=== PATIENT | female | born 1945 | race Caucasian/White ===

== ENCOUNTER → 2016-12-04 | Outpatient (CLI) | payer MEDICARE, OTHER ==
--- NOTE | 2016-12-04 14:46 | USB ---
Reason for exam: follow-up at short interval from prior study. History: Patient is postmenopausal. Benign US biopsy breast VAD RT of the right breast, May 30, 2016. Benign US biopsy breast add'l VAD RT of the right breast, May 30, 2016. Benign US biopsy breast add'l VAD RT of the right breast, May 30, 2016. Benign US right guided VAD of the right breast, August 12, 2009. Took hormonal contraceptives for 1 year 6 months beginning at age 23. Physical Findings: Nurse did not find any significant physical abnormalities on exam. US Breast RT Right breast ultrasound including all four quadrants, the retroareolar region and axilla demonstrates no cystic or solid lesion seen. These results were verbally communicated with the patient and result sheet given to the patient on 12/04/16. ASSESSMENT: Negative, BI-RAD 1 RECOMMENDATION: Routine screening mammogram of both breasts in 6 months. Back on schedule.
== END | disposition home or self-care (01) ==
LOC: RADUSWWP 14:05
PROVIDERS: ATTEND Surgery
DX: R92.8 Other abnormal and inconclusive findings on diagnostic imaging of breast (principal)

== ENCOUNTER → 2017-05-07 | Outpatient (CLI) | payer MEDICARE, OTHER ==
--- NOTE | 2017-05-07 10:09 | MM ---
Reason for exam: additional evaluation requested from prior study. Last mammogram was performed 11 months ago. History: Patient is postmenopausal. Benign US biopsy breast VAD RT of the right breast, May 30, 2016. Benign US biopsy breast add'l VAD RT of the right breast, May 30, 2016. Benign US biopsy breast add'l VAD RT of the right breast, May 30, 2016. Benign US right guided VAD of the right breast, August 12, 2009. Took hormonal contraceptives for 1 year 6 months beginning at age 23. Physical Findings: Nurse did not find any significant physical abnormalities on exam. MG 3D Diag Mammo W/Cad KAYLIN Bilateral CC and MLO view(s) were taken. Prior study comparison: December 04, 2016, right breast US breast RT. May 30, 2016, right breast MG diagnostic mammo RT wo CAD. May 23, 2016, bilateral MG 3d diag mammo w/cad KAYLIN. The breast tissue is heterogeneously dense. This may lower the sensitivity of mammography. Finding #1: Architectural distortion in the outer quadrant of the right breast. Finding #2: There are few typically benign round calcifications in both breasts. Previous mammotome biopsy in the right breast x 2. There is a chronic nodularity in the right breast. There is no discrete abnormality. These results were verbally communicated with the patient and result sheet given to the patient on 05/07/17. ASSESSMENT: Benign, BI-RAD 2 RECOMMENDATION: Routine screening mammogram of both breasts in 1 year.
== END | disposition home or self-care (01) ==
LOC: RADMAMWWP 08:55
PROVIDERS: ATTEND Surgery
DX: R92.8 Other abnormal and inconclusive findings on diagnostic imaging of breast (principal)
CPT/HCPCS: G0204; G0279

== ENCOUNTER → 2018-08-04 | Outpatient (CLI) | payer MEDICARE, OTHER ==
--- NOTE | 2018-08-04 09:55 | XR ---
EXAMINATION TYPE: XR chest 2V DATE OF EXAM: 08/04/2018 COMPARISON: NONE HISTORY: Preoperative evaluation. TECHNIQUE: Frontal and lateral views of the chest are obtained. FINDINGS: There is no focal air space opacity, pleural effusion, or pneumothorax seen. The cardiac silhouette size is within normal limits. The osseous structures are intact. Minimal multilevel dege nerative changes of the thoracic spine are seen. Postsurgical changes of the lumbar spine are partial ly visualized. IMPRESSION: No acute cardiopulmonary process.
[2018-08-04 10:03] LABS: INR 1.1 (<1.2); Prothrombin Time 10.5 sec (9.0-12.0)
[2018-08-04 10:17] LABS: Basophils % (A) 0 %; Eosinophils # (A) 0.1 k/uL (0-0.7); Eosinophils % (A) 1 %; HGB 12.8 gm/dL (11.4-16.0); Lymphocytes # (A) 2.5 k/uL (1.0-4.8); Lymphocytes % (A) 26 %; MCH 30.6 pg (25.0-35.0); MCHC 33.6 g/dL (31.0-37.0); MCV 91.2 fL (80.0-100.0); Mean Platelet Volume 6.7; Monocytes # (A) 0.5 k/uL (0-1.0); Monocytes % (A) 5 %; Neutrophils # (A) 6.4 k/uL (1.3-7.7); Neutrophils % (A) 66 %; Platelet Count 322 k/uL (150-450); RBC 4.17 m/uL (3.80-5.40); RDW 12.9 % (11.5-15.5); WBC 9.8 k/uL (3.8-10.6)
[2018-08-04 10:34] LABS: Potassium 4.4 mmol/L (3.5-5.1)
== END | disposition home or self-care (01) ==
LOC: LABPAT 08:50
PROVIDERS: ATTEND Orthopaedic Surgery
DX: Z01.818 Encounter for other preprocedural examination (principal); Z01.812 Encounter for preprocedural laboratory examination; M17.12 Unilateral primary osteoarthritis, left knee; Z79.01 Long term (current) use of anticoagulants
CPT/HCPCS: 71046; 80051; 85025; 85610; 87070; 93005

== ENCOUNTER → 2018-08-04 | Outpatient (CLI) | payer MEDICARE, OTHER ==
[2018-08-04 10:42] LABS: Cholesterol 164 mg/dL (<200); HDL Cholesterol 63 mg/dL (40-60); LDL Cholesterol,Calculated 51 mg/dL (0-99); Triglycerides 251 mg/dL (<150)
[2018-08-05 09:15] LABS: Lyme IgG/IgM 0.1 Index
== END ==
LOC: LABWHC1 08:38
PROVIDERS: ATTEND Otolaryngology
DX: H91.90 Unspecified hearing loss, unspecified ear (principal)
CPT/HCPCS: 36415; 80061; 86618

== ENCOUNTER → 2018-08-05 | Outpatient (CLI) | payer MEDICARE, OTHER ==
--- NOTE | 2018-08-05 11:25 | MR ---
EXAMINATION TYPE: MR brain and iac wo/w con DATE OF EXAM: 08/05/2018 COMPARISON: Prior internal auditory canal MRI 10/16/2015 HISTORY: Acoustic disorder TECHNIQUE: Multiplanar, multisequence images of the brain and brainstem is performed without and with IV contras t, utilizing 10 mL intravenous Gadavist . Small [id number] high-resolution images obtained through the internal auditory canals. FINDINGS: Diffusion weighted images demonstrate no evidence of a recent infarct or other diffusion ab normality. There is no extra-axial fluid collection or significant interval change in white matter s ignal abnormality. Scattered periventricular, subcortical, deep white matter hyperintensities are pre sent on inversion recovery T2-weighted sequences as on prior exam. The ventricular system and cistern al spaces are normal in size and appearance. The brain volume is age appropriate. There is no cerebellopontine angle mass. No abnormal enhancement along the internal auditory canals. Midline structures demonstrate normal morphology, partially empty sella again noted. The craniocervi thomas junction appears within normal limits. Post contrast images demonstrate no abnormal enhancement. The dural venous sinuses appear patent. The visualized sinuses are clear and the globes are intact. Minimal inflammatory change present within the mastoid air cells on the right. IMPRESSION: No evident cerebellopontine angle mass. Internal auditory canals show a normal appearance . Mild inflammatory change present mastoid air cells. Nonspecific white matter demyelination is stabl e.
== END | disposition home or self-care (01) ==
LOC: RADMRIMAIN 09:32
PROVIDERS: ATTEND Otolaryngology
DX: G37.9 Demyelinating disease of central nervous system, unspecified (principal); H91.92 Unspecified hearing loss, left ear
CPT/HCPCS: 82565; 70553; A9581

== ENCOUNTER 2018-08-22 16:46 | Emergency (ER) | payer MEDICARE, OTHER ==
[2018-08-22 16:54] VITALS: RESP 18
[2018-08-22] MEDS ORDERED: MAG HYDROX/AL HYDROX/SIMETH 30 ML CUP PO PRN (18:26)
[2018-08-22] MEDS ORDERED: FAMOTIDINE 20 MG/2 ML VIAL IV STA (18:26)
[2018-08-22] MEDS ORDERED: LIDOCAINE VISCOUS 2% 15 ML CUP MUCOUS MEM ONE (18:26)
[2018-08-22] MEDS ORDERED: ONDANSETRON 4 MG/2 ML VIAL IVP STA (18:26)
--- NOTE | 2018-08-22 18:45 | ED ---
General Adult HPI - General Chief complaint: Nausea/Vomiting/Diarrhea Stated complaint: gallbladder pain Time Seen by Provider: 08/22/18 17:56 Source: patient Mode of arrival: ambulatory Limitations: no limitations - History of Present Illness Initial comments: patient is a 73 year old female with a history of DM and hiatal hernia who presents with a CC of epigastric abdominal pain x 5 weeks. the patient has been seen by her primary care doctor for this and trialled numerous medications without relief. she states the pain is a pressure sensation, worse with eating. no other aggravating or alleviating factors. timing is relatively constant. she has a PSH of back surgery and hysterectomy. patient denies fever , chills, dysuria. she admits to nausea, though she has not vomited. she states today she felt like she would feel better if she could vomit. - Related Data Home Medications Medication Instructions Recorded Confirmed ALPRAZolam [Xanax] 0.25 mg PO BID 03/07/16 08/22/18 Aspirin 81 mg PO DAILY 03/07/16 08/22/18 Glimepiride [Amaryl] 4 mg PO BID 03/07/16 08/22/18 Losartan/Hydrochlorothiazide 0.5 tab PO BID 03/07/16 08/22/18 [Losartan-Hctz 100-25 mg Tab] Omeprazole [PriLOSEC] 20 mg PO AC-BID 03/07/16 08/22/18 Simvastatin [Zocor] 40 mg PO HS 03/07/16 08/22/18 metFORMIN HCL [Glucophage] 500 mg PO BID 03/07/16 08/22/18 sitaGLIPtin [Januvia] 100 mg PO DAILY 03/07/16 08/22/18 Cholecalciferol [Vitamin D3] 1,000 unit PO DAILY 03/09/16 08/22/18 Acetaminophen/Diphenhydramine 1 tab PO HS 08/22/18 08/22/18 [Tylenol PM 500-25mg] Atenolol 25 mg PO BID 08/22/18 08/22/18 Cyanocobalamin (Vitamin B-12) 1,000 mcg PO DAILY 08/22/18 08/22/18 [Vitamin B-12] Dicyclomine [Bentyl] 20 mg PO QID 08/22/18 08/22/18 Escitalopram [Lexapro] 10 mg PO DAILY 08/22/18 08/22/18 Levothyroxine Sodium [Synthroid] 150 mcg PO DAILY 08/22/18 08/22/18 Naproxen Sodium [Aleve] 220 mg PO Q12H PRN 08/22/18 08/22/18 Previous Rx's Medication Instructions Recorded Sucralfate [Carafate] 1 gm PO ACHS #20 tablet 08/22/18 Allergies Allergy/AdvReac Type Severity Reaction Status Date / Time niacin Allergy Rash/Hives Verified 08/22/18 19:05 adhesive tape AdvReac VERY RED Verified 08/22/18 19:05 SKIN Review of Systems ROS Statement: Those systems with pertinent positive or pertinent negative responses have been documented in the HPI. ROS Other: All systems not noted in ROS Statement are negative. Gastrointestinal: Reports: abdominal pain, nausea Past Medical History Past Medical History: Diabetes Mellitus, GERD/Reflux, Hyperlipidemia, Hypertension History of Any Multi-Drug Resistant Organisms: None Reported Past Surgical History: Back Surgery, Breast Surgery, Hysterectomy Additional Past Surgical History / Comment(s): BACK SURGERY X3 Past Anesthesia/Blood Transfusion Reactions: No Reported Reaction Past Psychological History: No Psychological Hx Reported Smoking Status: Never smoker Past Alcohol Use History: None Reported Past Drug Use History: None Reported - Past Family History Sister(s) Family Medical History: Cancer Additional Family Medical History / Comment(s): LIVER CANCER General Exam Limitations: no limitations General appearance: alert, in no apparent distress Head exam: Present: atraumatic, normocephalic Eye exam: Present: normal appearance ENT exam: Present: normal exam Neck exam: Present: normal inspection Respiratory exam: Present: normal lung sounds bilaterally. Absent: respiratory distress Cardiovascular Exam: Present: regular rate, normal rhythm GI/Abdominal exam: Present: soft. Absent: distended, tenderness Rectal exam: Present: deferred Extremities exam: Present: normal inspection Back exam: Present: normal inspection Neurological exam: Present: alert, oriented X3, CN II-XII intact, normal gait Psychiatric exam: Present: normal affect, normal mood Skin exam: Present: warm, dry, intact Course Vital Signs 08/22/18 16:52 Temperature 97.7 F Pulse Rate 78 Respiratory 18 Rate Blood Pressure 124/82 O2 Sat by Pulse 98 Oximetry Medical Decision Making - Medical Decision Making Patient presents with a CC of abdominal pain x 5 weeks. on initial evaluation, VS stable, patient in no acute distress. patient to be evaluated with basic labs including liver profile and lipase, EKG, and cardiac enzymes. she will be sent for a CT scan of the abdomen and pelvis. she was given a GI cocktail for symptomatic relief. EKG performed at 1917 shows NSR with a rate of 62 bpm. EKG otherwise unremarkable. 9:10 PM Lab evaluation of this patient is unremarkable. Urinalysis show any evidence of infection. Computed tomography scan of the abdomen and pelvis shows no acute process though there is redemonstration of hiatal hernia, and previously known lumbar sponlylysis. at the patients request, the case was discussed with Dr. Apodaca who states she is appropriate for OP follow up on saturday. patient instructed to call the office on saturday to confirm appointment. patient and family agreeable with this care plan. - Lab Data Result diagrams: 08/22/18 18:40 08/22/18 18:40 Lab Results 08/22/18 08/22/18 08/22/18 Range/Units 18:40 18:40 18:40 WBC 10.1 (3.8-10.6) k/uL RBC 4.28 (3.80-5.40) m/uL Hgb 12.9 (11.4-16.0) gm/dL Hct 39.9 (34.0-46.0) % MCV 93.3 (80.0-100.0) fL MCH 30.1 (25.0-35.0) pg MCHC 32.3 (31.0-37.0) g/dL RDW 13.0 (11.5-15.5) % Plt Count 389 (150-450) k/uL Neutrophils % 58 % Lymphocytes % 32 % Monocytes % 6 % Eosinophils % 1 % Basophils % 0 % Neutrophils # 5.9 (1.3-7.7) k/uL Lymphocytes # 3.2 (1.0-4.8) k/uL Monocytes # 0.6 (0-1.0) k/uL Eosinophils # 0.1 (0-0.7) k/uL Basophils # 0.0 (0-0.2) k/uL Sodium 140 (137-145) mmol/L Potassium 4.2 (3.5-5.1) mmol/L Chloride 101 (98-107) mmol/L Carbon Dioxide 28 (22-30) mmol/L Anion Gap 11 mmol/L BUN 24 H (7-17) mg/dL Creatinine 0.93 (0.52-1.04) mg/dL Est GFR (CKD-EPI)AfAm 71 (>60 ml/min/1.73 sqM) Est GFR (CKD-EPI)NonAf 62 (>60 ml/min/1.73 sqM) Glucose 120 H (74-99) mg/dL POC Glucose (mg/dL) (75-99) mg/dL POC Glu [employer]ice ID Calcium 9.5 (8.4-10.2) mg/dL Magnesium 1.1 L (1.6-2.3) mg/dL Total Bilirubin 0.5 (0.2-1.3) mg/dL AST 18 (14-36) U/L ALT 21 (9-52) U/L Alkaline Phosphatase 75 (38-126) U/L Troponin I (0.000-0.034) ng/mL NT-Pro-B Natriuret Pep pg/mL Total Protein 7.8 (6.3-8.2) g/dL Albumin 4.6 (3.5-5.0) g/dL Lipase 130 (23-300) U/L Urine Color Light Yellow Urine Appearance Clear (Clear) Urine pH 5.5 (5.0-8.0) Ur Specific [place] 1.011 (1.001-1.035) Urine Protein Negative (Negative) Urine Glucose (UA) Negative (Negative) Urine Ketones Negative (Negative) Urine Blood Negative (Negative) Urine Nitrite Positive H (Negative) Urine Bilirubin Negative (Negative) Urine Urobilinogen <2.0 (<2.0) mg/dL Ur Leukocyte Esterase Small H (Negative) Urine WBC 3 (0-5) /hpf Ur Squamous Epith Cells 1 (0-4) /hpf Urine Bacteria Rare H (None) /hpf 08/22/18 08/22/18 08/22/18 Range/Units 18:40 18:40 20:17 WBC (3.8-10.6) k/uL RBC (3.80-5.40) m/uL Hgb (11.4-16.0) gm/dL Hct (34.0-46.0) % MCV (80.0-100.0) fL MCH (25.0-35.0) pg MCHC (31.0-37.0) g/dL RDW (11.5-15.5) % Plt Count (150-450) k/uL Neutrophils % % Lymphocytes % % Monocytes % % Eosinophils % % Basophils % % Neutrophils # (1.3-7.7) k/uL Lymphocytes # (1.0-4.8) k/uL Monocytes # (0-1.0) k/uL Eosinophils # (0-0.7) k/uL Basophils # (0-0.2) k/uL Sodium (137-145) mmol/L Potassium (3.5-5.1) mmol/L Chloride (98-107) mmol/L Carbon Dioxide (22-30) mmol/L Anion Gap mmol/L BUN (7-17) mg/dL Creatinine (0.52-1.04) mg/dL Est GFR (CKD-EPI)AfAm (>60 ml/min/1.73 sqM) Est GFR (CKD-EPI)NonAf (>60 ml/min/1.73 sqM) Glucose (74-99) mg/dL POC Glucose (mg/dL) 107 H (75-99) mg/dL POC Glu [employer]ice ID Jasiel Xie Calcium (8.4-10.2) mg/dL Magnesium (1.6-2.3) mg/dL Total Bilirubin (0.2-1.3) mg/dL AST (14-36) U/L ALT (9-52) U/L Alkaline Phosphatase (38-126) U/L Troponin I <0.012 (0.000-0.034) ng/mL NT-Pro-B Natriuret Pep 144 pg/mL Total Protein (6.3-8.2) g/dL Albumin (3.5-5.0) g/dL Lipase (23-300) U/L Urine Color Urine Appearance (Clear) Urine pH (5.0-8.0) Ur Specific [place] (1.001-1.035) Urine Protein (Negative) Urine Glucose (UA) (Negative) Urine Ketones (Negative) Urine Blood (Negative) Urine Nitrite (Negative) Urine Bilirubin (Negative) Urine Urobilinogen (<2.0) mg/dL Ur Leukocyte Esterase (Negative) Urine WBC (0-5) /hpf Ur Squamous Epith Cells (0-4) /hpf Urine Bacteria (None) /hpf Disposition Clinical Impression: Hiatal hernia Disposition: HOME SELF-CARE Condition: Good Instructions: Hiatal Hernia (DC) Is patient prescribed a controlled substance at d/c from ED?: No Referrals: Evaristo Guillory DO [Primary Care Provider] - 1-2 days
[2018-08-22 19:00] LABS: Basophils % (A) 0 %; Eosinophils # (A) 0.1 k/uL (0-0.7); Eosinophils % (A) 1 %; HCT 39.9 % (34.0-46.0); HGB 12.9 gm/dL (11.4-16.0); Lymphocytes # (A) 3.2 k/uL (1.0-4.8); Lymphocytes % (A) 32 %; MCH 30.1 pg (25.0-35.0); MCHC 32.3 g/dL (31.0-37.0); MCV 93.3 fL (80.0-100.0); Mean Platelet Volume 6.6; Monocytes # (A) 0.6 k/uL (0-1.0); Monocytes % (A) 6 %; Neutrophils # (A) 5.9 k/uL (1.3-7.7); Neutrophils % (A) 58 %; Platelet Count 389 k/uL (150-450); RBC 4.28 m/uL (3.80-5.40); WBC 10.1 k/uL (3.8-10.6)
[2018-08-22 19:03] LABS: Appearance,Urine Clear (Clear); Bacteria,Urine Rare /hpf; Bilirubin,Urine Negative (Negative); Blood,Urine Negative (Negative); Color,Urine Light Yellow; Glucose,Urine (UA) Negative (Negative); Ketones,Urine Negative (Negative); Leukocyte Esterase,Urine Small (Negative); Nitrite,Urine Positive (Negative); PH, Urine 5.5 (5.0-8.0); Protein,Urine Negative (Negative); Specific Gravity,Urine 1.011 (1.001-1.035); Squamous Epithelial Cell,Urine 1 /hpf (0-4); Urobilinogen,Urine <2.0 mg/dL (<2.0); WBC,Urine 3 /hpf (0-5)
[2018-08-22 19:07] LABS: Albumin 4.6 g/dL (3.5-5.0); Calcium 9.5 mg/dL (8.4-10.2); Magnesium 1.1 mg/dL (1.6-2.3); Potassium 4.2 mmol/L (3.5-5.1); Total Bilirubin 0.5 mg/dL (0.2-1.3); Total Protein 7.8 g/dL (6.3-8.2)
--- NOTE | 2018-08-22 19:13 | XR ---
EXAMINATION TYPE: XR chest 2V DATE OF EXAM: 08/22/2018 COMPARISON: 08/04/2018 HISTORY: Epigastric pain TECHNIQUE: Frontal and lateral views of the chest are obtained. FINDINGS: Heart and mediastinum are normal. Lungs are clear. Diaphragm is normal. Bony thorax is int act. IMPRESSION: No active cardiopulmonary disease. Normal heart. No change.
[2018-08-22 20:38] LABS: Glucose,Whole Blood 107 mg/dL (75-99)
--- NOTE | 2018-08-22 20:49 | CT ---
EXAMINATION TYPE: CT abdomen pelvis w con DATE OF EXAM: 08/22/2018 COMPARISON: None HISTORY: Epigastric pain with reflux CT DLP: 1059 mGycm Automated exposure control for dose reduction was used. TECHNIQUE: Helical acquisition of images was performed from the lung bases through the pelvis. CONTRAST: Performed without Oral Contrast and with IV Contrast, patient injected with 100 mL of Isovue 300. FINDINGS: Lung bases are clear of infiltrate. There is no pleural effusion. There are small hiatal hernia. The remainder of the stomach appears normal. spleen pancreas gallbladder appear normal. Bile ducts are no t dilated. The heart is enlarged. There is no adrenal mass. There is 1 cm cyst posterior right lobe of the liver. Kidneys show satisfac tory contrast opacification. There is no hydronephrosis. There is no retroperitoneal adenopathy. Ther e is no evidence of aortic aneurysm. Bladder distends smoothly. There is no inguinal hernia. There are numerous diverticula in the sigmoid colon and descending colon. There is no sign of diverti culitis. The appendix is partly seen and appears normal. There is no mesenteric edema or adenopathy. There is posterior fusion surgery in the lumbar spine at L2-3 and L5-S1. There is a 6 mm subluxation at L3-4. There is no compression fracture. There is multilevel disc space narrowing. The bony pelvis appears intact. There is no sign of free air. There is no ascites. IMPRESSION: HIATAL HERNIA. CARDIOMEGALY. 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 NO ACUTE BONY ABNORMALITY. MODERATE DIVERTICULOSIS.
[2018-08-22 21:33] VITALS: BP 143/73; PULSE 77; TEMP 98
== END 2018-08-22 21:33 | disposition home or self-care (01) ==
LOC: EC 16:46
DX: K44.9 Diaphragmatic hernia without obstruction or gangrene (principal); M43.16 Spondylolisthesis, lumbar region; K21.9 Gastro-esophageal reflux disease without esophagitis; E11.9 Type 2 diabetes mellitus without complications; E78.5 Hyperlipidemia, unspecified; I10 Essential (primary) hypertension; Z98.890 Other specified postprocedural states; Z90.710 Acquired absence of both cervix and uterus; Z79.82 Long term (current) use of aspirin; Z79.84 Long term (current) use of oral hypoglycemic drugs; Z79.899 Other long term (current) drug therapy; Z88.8 Allergy status to other drugs, medicaments and biological substances; Z91.048 Other nonmedicinal substance allergy status
CPT/HCPCS: 36415; 93005; 83880; 80053; 83690; 83735; 84484; 85025; 81001; 71046; 74177; 99284; 96374; 96375; J2405; Q9967

== ENCOUNTER → 2018-09-01 | Outpatient (CLI) | payer MEDICARE, OTHER ==
--- NOTE | 2018-09-01 15:36 | NM ---
EXAMINATION TYPE: NM hepatobiliary w CCK DATE OF EXAM: 09/01/2018 COMPARISON: NONE HISTORY: R10.84 ABD Pain, K21.9 Gerd TECHNIQUE: After the intravenous administration of 5.16 mCi Tc 99m Mebrofenin hepatobiliary scintigra phy is performed. Immediate images post injection. FINDINGS: There is satisfactory initial accumulation of tracer by the liver. The gallbladder is visualized wit hin 20 minutes. The small bowel activity is noted within 10-15 minutes. At one hour CCK was adminis tered, patient was injected with 1.9 mcg of Kinevac, and gallbladder ejection fraction is calculated at 22%. IMPRESSION: Diminished gallbladder ejection fraction which may reflect chronic cholecystitis and/or b iliary dyskinesia.
== END | disposition home or self-care (01) ==
LOC: RADNMMAIN 12:52
PROVIDERS: ATTEND Surgery
DX: R10.84 Generalized abdominal pain (principal); K21.9 Gastro-esophageal reflux disease without esophagitis
CPT/HCPCS: 78227; A9537; J2805

== ENCOUNTER → 2018-09-10 | Outpatient (CLI) | payer MEDICARE, OTHER | LOC: LABPAT 08:43 | PROVIDERS: ATTEND Surgery | DX: Z01.812 Encounter for preprocedural laboratory examination (principal); K21.9 Gastro-esophageal reflux disease without esophagitis | CPT/HCPCS: 36415; 86850; 86870; 86880; 86900; 86901 ==

== ENCOUNTER 2018-09-15 13:15 | Day surgery (SDC) | payer MEDICARE, OTHER ==
[2018-09-10 15:18] VITALS: BMI 33.9
--- NOTE | 2018-09-15 10:04 | P.GSHP ---
History of Present Illness H&P Date: 09/15/18 Chief Complaint: Hiatal hernia, dysphagia Is a 73-year-old female who's had chronic issues of epigastric pain and dysphagia. Patient underwent recent EGD is found have a large hiatal hernia. Patient presents today for laparoscopic repair of hiatal hernia. Past Medical History Past Medical History: Diabetes Mellitus, GERD/Reflux, Hyperlipidemia, Hypertension, Pneumonia, Thyroid Disorder Additional Past Medical History / Comment(s): HIATAL HERNIA, recent stomach infection, diarrhea, gallbladder issues and thyroid problems. History of Any Multi-Drug Resistant Organisms: None Reported Past Surgical History: Back Surgery, Breast Surgery, Heart Catheterization, Hysterectomy Additional Past Surgical History / Comment(s): BACK SURGERY X3, CATARACT WITH IMPLANTS-BILATERAL, EGD. Past Anesthesia/Blood Transfusion Reactions: No Reported Reaction Past Psychological History: Anxiety Smoking Status: Never smoker Past Alcohol Use History: None Reported Past Drug Use History: None Reported - Past Family History Sister(s) Family Medical History: Cancer Additional Family Medical History / Comment(s): LIVER CANCER Brother(s) Family Medical History: Cancer Medications and Allergies Home Medications Medication Instructions Recorded Confirmed Type ALPRAZolam [Xanax] 0.25 mg PO BID PRN 03/07/16 09/10/18 History Aspirin 81 mg PO DAILY 03/07/16 09/10/18 History Glimepiride [Amaryl] 4 mg PO BID 03/07/16 09/10/18 History Losartan/Hydrochlorothiazide 0.5 tab PO BID 03/07/16 09/10/18 History [Losartan-Hctz 100-25 mg Tab] Omeprazole [PriLOSEC] 20 mg PO AC-BID 03/07/16 09/10/18 History Simvastatin [Zocor] 40 mg PO HS 03/07/16 09/15/18 History metFORMIN HCL [Glucophage] 500 mg PO BID 03/07/16 09/10/18 History sitaGLIPtin [Januvia] 100 mg PO DAILY 03/07/16 09/10/18 History Cholecalciferol [Vitamin D3] 1,000 unit PO DAILY 03/09/16 09/10/18 History Acetaminophen/Diphenhydramine 1 tab PO HS 08/22/18 09/10/18 History [Tylenol PM 500-25mg] Atenolol 25 mg PO BID 08/22/18 09/15/18 History Cyanocobalamin (Vitamin B-12) 1,000 mcg PO DAILY 08/22/18 09/10/18 History [Vitamin B-12] Levothyroxine Sodium [Synthroid] 150 mcg PO QAM 08/22/18 09/10/18 History Naproxen Sodium [Aleve] 220 mg PO Q12H PRN 08/22/18 09/10/18 History Allergies Allergy/AdvReac Type Severity Reaction Status Date / Time niacin Allergy Rash/Hives Verified 09/15/18 08:51 adhesive tape AdvReac VERY RED Verified 09/15/18 08:51 SKIN Surgical - Exam Vital Signs Temp Pulse Resp BP Pulse Ox 97.7 F 79 16 130/68 96 09/15/18 09:06 09/15/18 09:06 09/15/18 09:06 09/15/18 09:06 09/15/18 09:06 - General well developed, no distress - Eyes PERRL - ENT normal pinna - Neck no masses - Respiratory normal expansion - Cardiovascular Rhythm: regular - Abdomen Abdomen: soft, non tender Assessment and Plan Assessment: Large hiatal hernia. We'll perform laparoscopic repair.
[2018-09-15 10:07] LABS: Glucose,Whole Blood 165 mg/dL (75-99)
[2018-09-15] MEDS: HYDROmorphone 1 MG/ML 1 ML SYRINGE IVP PRN ×4 (12:15→16:05)
[2018-09-15 12:33] LABS: Glucose,Whole Blood 255 mg/dL (75-99)
--- NOTE | 2018-09-15 12:43 | P.OP ---
Date of Procedure: 09/15/18 Preoperative Diagnosis: GERD Right upper quadrant pain Postoperative Diagnosis: GERD Cholecystitis Procedure(s) Performed: Laparoscopic Kaci fundoplication with mesh repair of hiatal hernia Laparoscopic cholecystectomy Anesthesia: SEYMOUR Surgeon: Uziel Dominique Estimated Blood Loss (ml): 5 Pathology: other (Gallbladder) Condition: stable Disposition: PACU Description of Procedure: The patient was placed on the operating table in the supine position. She received general anesthesia. She was then placed in dorsal lithotomy position. Her abdomen was prepped and draped in the usual sterile fashion. The skin incision sites were anesthetized with 1% local Xylocaine. The skin was incised in the left periumbilical area with an 11 scalpel. Using a 5 mm blade was trocar under direct visitation the peritoneal cavity was entered. And then insufflated. After adequate insufflation the laparoscope was placed back into the peritoneal cavity. Next a 5 mm trocar was placed in the right epigastric and then the right lateral position. Another 5 mm trochars placed in the left lateral position. Another 5 mm trocar placed in the left epigastric position. And the original left periumbilical trocar was exchanged for a 10 mm trocar. The left lateral lobe liver was retracted. The patient had a large hiatal hernia. Using the Harmonic scissors the crural defect was dissected in the Harmonic scissors were used to dissect the hiatal hernia sac. The fundus of the stomach was completely mobilized by using the Harmonic scissors to divide short gastric vessels. The stomach was reduced into the peritoneal cavity. The crura was dissected with the Harmonic scissors. And then the crural repair was performed using 2-0 Ethibond suture. The [place] bio A mesh was then placed over top of the repair and secured with 2-0 Ethibond suture. Next a 58-Algerian bougie dilator was placed the patient's oral pharynx and into the esophagus into the stomach by the MARKET RESEARCH INTERN. The fundoplication was then performed using 2-0 Ethibond suture. A 180 fundoplication was performed. At this point the dilator was withdrawn. The stomach and esophagus were inspected there is known to any injury to the stomach or esophagus. The abdomen was irrigated there is no bleeding seen. Next, the 10 mm trocar was placed in the epigastric position. Following this the laparoscope was placed in the peritoneal cavity. The patient was placed in the head-up, right side up position and then a 5 mm trocar was placed in the right lateral and right subcostal position under direct visualization. A 8 mm trocar was placed in the Judi. The gallbladder was grasped in the fundus and infundibulum. Traction on the gallbladder was placed in the lateral and the cephalad positions. The triangle of Calot was visualized.. The cystic duct was bluntly dissected until the union of the cystic duct and common bile duct was seen. The cystic duct was then divided and sealed with the Harmonic scissors. A PDS Endoloop was then placed throughout the cystic duct stump. The cystic artery divided and sealed with the Harmonic scissors. The gallbladder was then removed from the liver bed using Harmonic scissors. The gallbladder was then extracted through the epigastric port site. Operative field was checked for any bleeding spots and Harmonic scissors was used to coagulate the liver bed. The abdomen was irrigated. The trocars were removed. The skin was closed using interrupted 3-0 Vicryl suture. Dermabond dressing were applied. The patient tolerated the procedure well.
[~2018-09-15 13:15] MED LIST: BUPIVACAIN-EPI 0.25%-1:200,000 30 ML VIAL SQ ONE; DEXAMETHASONE SOD PHOSPHATE 10 MG/ML 1 ML VIAL IV ONE; GLYCOPYRROLATE 0.2 MG/ML 2 ML VIAL ONE; HEPARIN SODIUM,PORCINE 5,000 UNIT/ML 1 ML VIAL SQ ONE; KETOROLAC 30 MG/ML 1 ML VIAL ONE; LACTATED RINGERS 1,000 ML IV SCH; LIDOCAINE 1% INJ 10MG/ML (20 ML MDV) ONE; MIDAZOLAM 2 MG/2 ML VIAL IV PRN; MIDAZOLAM 2 MG/2 ML VIAL ONE; MORPHINE SULFATE 10 MG/ML SYRINGE ONE; NEOSTIGMINE 1 MG/ML 10 ML VIAL ONE; ONDANSETRON 4 MG/2 ML VIAL IVP ONE; ONDANSETRON 4 MG/2 ML VIAL IVP PRN; PROPOFOL 10 MG/ML 20 ML VIAL IV ONE; ROCURONIUM BROMIDE 10 MG/ML 10 ML VIAL IV ONE; ceFAZolin IN SWFI 2 GM/20 ML SYRINGE IVP ONE; fentaNYL (PF) 50 MCG/ML 2 ML AMP ONE
[2018-09-15] MEDS ORDERED: HYDROmorphone 0.5 MG/0.5 ML SYRINGE IVP ONE (13:20)
[2018-09-15] MEDS ORDERED: INSULIN ASPART 100 UNIT/ML 1 ML 10 ML VIAL SQ ONE (13:35)
[2018-09-15] MEDS ORDERED: ALPRAZolam 0.25 MG TAB PO PRN (14:00)
[2018-09-15] MEDS: D5-0.45% NACL WITH KCL 20MEQ/L 1,000 ML IV SCH (16:09)
[2018-09-15 17:02] LABS: Glucose,Whole Blood 189 mg/dL (75-99)
[2018-09-15] MEDS: metFORMIN 500 MG TAB PO SCH (17:30)
[2018-09-15] MEDS: METOCLOPRAMIDE 5 MG/ML 2 ML VIAL IVP SCH (18:48)
[2018-09-15] MEDS ORDERED: ATORVASTATIN 20 MG TAB PO SCH (21:00)
[2018-09-15] MEDS: LOSARTAN-HCTZ 50-12.5 MG 1 EACH TAB PO SCH (21:43)
[2018-09-15] MEDS: ATENOLOL 25 MG TAB PO SCH ×2 (21:43→21:54)
[2018-09-15] MEDS: GLIMEPIRIDE 4 MG TAB PO SCH (21:43)
[2018-09-15] MEDS: FAMOTIDINE 20 MG/2 ML VIAL IV SCH (21:43)
[2018-09-16] MEDS: HYDROmorphone 1 MG/ML 1 ML SYRINGE IVP PRN ×2 (00:03→07:59)
[2018-09-16] MEDS: METOCLOPRAMIDE 5 MG/ML 2 ML VIAL IVP SCH ×2 (00:03→06:11)
[2018-09-16] MEDS: D5-0.45% NACL WITH KCL 20MEQ/L 1,000 ML IV SCH ×2 (03:22→06:35)
[2018-09-16] MEDS ORDERED: LEVOTHYROXINE 75 MCG TAB PO SCH (06:30)
[2018-09-16 07:31] LABS: Glucose,Whole Blood 184 mg/dL (75-99)
[2018-09-16] MEDS: ATENOLOL 25 MG TAB PO SCH (08:03)
[2018-09-16] MEDS: LOSARTAN-HCTZ 50-12.5 MG 1 EACH TAB PO SCH (08:03)
[2018-09-16] MEDS: FAMOTIDINE 20 MG/2 ML VIAL IV SCH (08:05)
[2018-09-16] MEDS: metFORMIN 500 MG TAB PO SCH (08:08)
[2018-09-16 08:13] VITALS: BP 107/72; PULSE 82; RESP 20; TEMP 97.9
[2018-09-16] MEDS ORDERED: HYDROcodone/APAP 5-325MG 1 EACH TAB PO PRN (08:33)
[2018-09-16] MEDS ORDERED: SODIUM CHLORIDE 0.9% 1,000 ML IV SCH (08:45)
[2018-09-16] MEDS ORDERED: traMADol 50 MG TAB PO PRN (08:53)
[2018-09-16] MEDS ORDERED: LINAGLIPTIN 5 MG TABLET PO SCH (09:00)
[2018-09-16] MEDS ORDERED: ENOXAPARIN 40 MG/0.4 ML SYRINGE SQ SCH (09:00)
--- NOTE | 2018-09-16 09:15 | FL ---
EXAMINATION TYPE: FL esophagus cervic/pharynx DATE OF EXAM: 09/16/2018 LIMITED UGI-ESOPHAGRAM: CLINICAL HISTORY: Epigastric pain and reflux status post Sammy fundoplication surgery one day earli er. TECHNIQUE: Limited esophagram is performed utilizing 20 oz of contrast. A total of 66 seconds of flu oroscopic time was utilized during procedure. 19 spot images are saved. Comparison: CT abdomen and pelvis August 22, 2018 FINDINGS: The patient swallowed contrast without difficulty or delay. Esophageal peristalsis and mo tility are satisfactory. There is mild delay of flow of contrast along the diaphragmatic hiatus at si te of surgery into the stomach, there is no evidence of contrast extravasation to suggest leak. No pe rsistent hiatal hernia is seen after surgery. Patient remains asymptomatic without increased nausea. There is partial visualization of surgical hardware in the lumbar spine during performance of study. IMPRESSION: No evidence of leak or significant obstruction status post Sammy fundoplication surgery earlier today.
[2018-09-16] MEDS: GLIMEPIRIDE 4 MG TAB PO SCH (09:46)
--- NOTE | 2018-09-16 09:59 | P.DS ---
Providers Expected date of discharge: 09/16/18 Attending physician: Uziel Dominique Consults: 09/15/18 12:45 Consult Physician Routine Consulting Provider: Evaristo Guillory Consult Reason/Comments: Medical management Do you want consulting provider notified?: Yes Primary care physician: Evaristo Guillory [place] [facility] Course: 73-year-old female who has had chronic issues of epigastric and dysphagia. Underwent a recent EGD was found to have a large hiatal hernia. Additionally patient had a HIDA scan performed which showed diminished ejection fraction consistent with chronic cholelithiasis. Patient elected to undergo laparoscopic cholecystectomy with a laparoscopic hiatal hernia repair done on the 15 of September. At the time of discharge patient was up ambulatory on the unit surgical dressing sites dry afebrile abdomen soft nontender pain medication effective for pain control patient did report that she had gone to urgent care prior to surgery was treated for a reported UTI. Did develop some redness at the labia patient thought this was contributed to changing detergent and soap at the time of discharge there was a significant improvement in the redness patient stated that the symptoms had resolved Impression discharge diagnoses Chronic issues of epigastric and dysphagia Recent EGD showed evidence of a large hiatal hernia HIDA scan showed diminished ejection fraction consistent with chronic cholecystitis Status post September 16 laparoscopic cholecystectomy with hiatal hernia repair Type 2 diabetes non-insulin hemoglobin A1c 7.3 History of a recent UTI incomplete antibiotics missed 2 doses The above impression and plan of care have been discussed and directed by signing physician. Shaye Reyes nurse practitioner acting as scribe for signing physician. Plan - Discharge Summary New Discharge Prescriptions: New HYDROcodone/APAP 5-325MG [[place] 5-325] 1 each PO Q4HR PRN #12 tab PRN Reason: Moderate Pain Continue Simvastatin [Zocor] 40 mg PO HS Losartan/Hydrochlorothiazide [Losartan-Hctz 100-25 mg Tab] 0.5 tab PO BID Omeprazole [PriLOSEC] 20 mg PO AC-BID Glimepiride [Amaryl] 4 mg PO BID metFORMIN HCL [Glucophage] 500 mg PO BID ALPRAZolam [Xanax] 0.25 mg PO BID PRN PRN Reason: ANXIETY,INSOMNIA Aspirin 81 mg PO DAILY sitaGLIPtin [Januvia] 100 mg PO DAILY Cholecalciferol [Vitamin D3] 1,000 unit PO DAILY Naproxen Sodium [Aleve] 220 mg PO Q12H PRN PRN Reason: Pain Acetaminophen/Diphenhydramine [Tylenol PM 500-25mg] 1 tab PO HS Levothyroxine Sodium [Synthroid] 150 mcg PO QAM Atenolol 25 mg PO BID Cyanocobalamin (Vitamin B-12) [Vitamin B-12] 1,000 mcg PO DAILY Discharge Medication List ALPRAZolam [Xanax] 0.25 mg PO BID PRN 03/07/16 [History] Aspirin 81 mg PO DAILY 03/07/16 [History] Glimepiride [Amaryl] 4 mg PO BID 03/07/16 [History] Losartan/Hydrochlorothiazide [Losartan-Hctz 100-25 mg Tab] 0.5 tab PO BID [History] Omeprazole [PriLOSEC] 20 mg PO AC-BID 03/07/16 [History] Simvastatin [Zocor] 40 mg PO HS 03/07/16 [History] metFORMIN HCL [Glucophage] 500 mg PO BID 03/07/16 [History] sitaGLIPtin [Januvia] 100 mg PO DAILY 03/07/16 [History] Cholecalciferol [Vitamin D3] 1,000 unit PO DAILY 03/09/16 [History] Acetaminophen/Diphenhydramine [Tylenol PM 500-25mg] 1 tab PO HS 08/22/18 [ History] Atenolol 25 mg PO BID 08/22/18 [History] Cyanocobalamin (Vitamin B-12) [Vitamin B-12] 1,000 mcg PO DAILY 08/22/18 [ History] Levothyroxine Sodium [Synthroid] 150 mcg PO QAM 08/22/18 [History] Naproxen Sodium [Aleve] 220 mg PO Q12H PRN 08/22/18 [History] HYDROcodone/APAP 5-325MG [[place] 5-325] 1 each PO Q4HR PRN #12 tab 09/16/18 [Rx] Follow up Appointment(s)/Referral(s): Uziel Dominique MD [STAFF PHYSICIAN] - 2 Weeks Activity/Diet/Wound Care/Special Instructions: No tub bath for six weeks. Shower daily. No lifting over 10 pounds for the next 2 weeks. Do not remove the plastic surgical dressings will be removed in the office or will fall off on their own May use ice packs to surgical site. No driving while taking narcotic for pain. kurt clear liquid diet Discharge Disposition: HOME SELF-CARE
--- NOTE | 2018-09-16 11:07 | P.CONS ---
History of Present Illness - Reason for Consult Consult date: 09/16/18 medical management Requesting physician: Uziel Dominique - Chief Complaint medical management, GERD - History of Present Illness 73-year-old female who underwent elective laparoscopic kurt fundoplication with mesh repair of hiatal hernia and laparoscopic cholecystectomy by Dr. Dominique. Dr. Guillory was consulted for medical management. The patient has a history of diabetes mellitus, GERD, hyperlipidemia , hypertension, and hiatal hernia. She reports she went to [facility] a few weeks ago and was diagnosed with a urinary tract infection. She states she took all but two pills of her antibiotic. She denies dysuria, burning with urination , vaginal itching, increased urgency or frequency. She does report some redness to the labia majora. Patient is tolerating clear liquid diet. She denies chest pain or pressure. Denies shortness of breath. Vital signs are stable. REVIEW OF SYSTEMS: GENERAL: Patient denies fever. Denies chills. EYES: Denies blurred vision. Denies vision changes. Denies eye pain. EARS, NOSE, MOUTH, & THROAT: Denies headache. Denies sore throat. Denies ear pain. RESPIRATORY: Denies cough. Denies shortness of breath. Denies sputum production. Denies hemoptysis. CARDIOVASCULAR: Denies chest pain or pressure. Denies palpitations. Denies arrhythmias. GASTROINTESTINAL: Denies abdominal pain. Denies diarrhea. Denies constipation. Denies nausea. Denies vomiting. Denies blood in the stool. GENITOURINARY: Denies urinary frequency. Denies burning. Denies dysuria. Denies cloudy urine. Denies blood in the urine. MUSCULOSKELETAL: Denies myalgias. Denies joint swelling. Denies decreased range of motion beyond patients baseline. INTEGUMENTARY: Denies pruitis. Denies rash. PSYCHIATRIC: Denies suicidal or homicial ideations. ENDOCRINE: Denies weight change. Denies polydipsia. Denies polyuria. HEMATOLOGIC: Denies bleeding disorders. PHYSICAL EXAM: GENERAL: This is a 73-year-old female in no apparent distress at the time of examination. Pleasant and cooperative. HEENT: Head is atraumatic, normocephalic. Pupils are equal, round, and reactive to light. Sclerae anicteric. Conjunctivae are clear. Mucus membranes of the mouth are moist. Neck is supple. RESPIRATORY: Clear to auscultation. No wheezes, rales, or rhonchi. No use of accessory muscles. Patient maintaining oxygen saturation greater than 92%. No chest wall tenderness is noted on palpation or with deep breathing. CARDIOVASCULAR: Regular rate and rhythm. S1 and S2 noted. No systolic or diastolic murmur auscultated. No JVD noted. No S3 or S4 noted. GASTROINTESTINAL: No distention noted. Abdomen soft and round. Bowel sounds auscultated x 4 quadrants. No pain or tenderness noted upon palpation. Laparoscopic surgical incision sites without signs of infection. No drainage noted. NURSING PROGRAM COORDINATOR: Mild erythema noted to labia majora. No open cuts, rashes, drainage, malodorous smell INTEGUMENTARY: No cyanosis. No jaundice. No rashes noted. No cellulitis noted. EXTREMITIES: 2+ peripheral pulses. No evidence of peripheral edema. No calf tenderness noted. NEUROLOGIC: Cranial nerves II-XII intact. PSYCHIATRIC: Awake, alert, and oriented X 3. Appropriate affect. Intact judgement and insight. ASSESSMENT: Chronic epigastric pain and dysphagia with recent HIDA scan revealing decreased ejection fraction and chronic cholecystitis and history of hiatal hernia, status post laparoscopic kurt fundoplication with mesh repair of hiatal hernia and laparoscopic cholecystectomy Diabetes mellitus, type II Recent outpatient diagnosis of urinary tract infection, patient completed all but two doses of antibiotics, reports symptoms resolved Hypertension Hyperlipidemia Obesity: BMI 33.9 PLAN: Continue post operative care per Dr. Dominique. Pain control. Continue clear liquid diet. Resume home meds as appropriate. Discontinue IV fluid. Increase activity. Monitor vital signs and address as appropriate. Further recommendations pending patient course. Instructions given to patient regarding labia majora erythema and sami care including washing only once a day with mild soap, no creams or lotions to area, loose cotton underwear or even no underwear while laying around at home recovering, etc. Patient verbalized understanding. Thank you for this consultation. We will continue to follow with Debbie during her hospitalization. She is stable for discharge from a medical standpoint when cleared by attending physician. She may follow up with Dr. Guillory in 1 week. Nurse practitioner note has been reviewed by physician. Signing provider agrees with the documented findings, assessment, and plan of care. Past Medical History Past Medical History: Diabetes Mellitus, GERD/Reflux, Hyperlipidemia, Hypertension, Pneumonia, Thyroid Disorder Additional Past Medical History / Comment(s): HIATAL HERNIA, recent stomach infection, diarrhea, gallbladder issues and thyroid problems. History of Any Multi-Drug Resistant Organisms: None Reported Past Surgical History: Back Surgery, Breast Surgery, Heart Catheterization, Hysterectomy Additional Past Surgical History / Comment(s): BACK SURGERY X3, CATARACT WITH IMPLANTS-BILATERAL, EGD. Past Anesthesia/Blood Transfusion Reactions: No Reported Reaction Past Psychological History: Anxiety Smoking Status: Never smoker Past Alcohol Use History: None Reported Past Drug Use History: None Reported - Past Family History Sister(s) Family Medical History: Cancer Additional Family Medical History / Comment(s): LIVER CANCER Brother(s) Family Medical History: Cancer Medications and Allergies Home Medications Medication Instructions Recorded Confirmed Type ALPRAZolam [Xanax] 0.25 mg PO BID PRN 03/07/16 09/15/18 History Aspirin 81 mg PO DAILY 03/07/16 09/15/18 History Glimepiride [Amaryl] 4 mg PO BID 03/07/16 09/15/18 History Losartan/Hydrochlorothiazide 0.5 tab PO BID 03/07/16 09/15/18 History [Losartan-Hctz 100-25 mg Tab] Omeprazole [PriLOSEC] 20 mg PO AC-BID 03/07/16 09/15/18 History Simvastatin [Zocor] 40 mg PO HS 03/07/16 09/15/18 History metFORMIN HCL [Glucophage] 500 mg PO BID 03/07/16 09/15/18 History sitaGLIPtin [Januvia] 100 mg PO DAILY 03/07/16 09/15/18 History Cholecalciferol [Vitamin D3] 1,000 unit PO DAILY 03/09/16 09/15/18 History Acetaminophen/Diphenhydramine 1 tab PO HS 08/22/18 09/15/18 History [Tylenol PM 500-25mg] Atenolol 25 mg PO BID 08/22/18 09/15/18 History Cyanocobalamin (Vitamin B-12) 1,000 mcg PO DAILY 08/22/18 09/15/18 History [Vitamin B-12] Levothyroxine Sodium [Synthroid] 150 mcg PO QAM 08/22/18 09/15/18 History Naproxen Sodium [Aleve] 220 mg PO Q12H PRN 08/22/18 09/15/18 History HYDROcodone/APAP 5-325MG [[place] 1 each PO Q4HR PRN #12 tab 09/16/18 Rx 5-325] Allergies Allergy/AdvReac Type Severity Reaction Status Date / Time niacin Allergy Rash/Hives Verified 09/15/18 13:08 adhesive tape AdvReac VERY RED Verified 09/15/18 13:08 SKIN Physical Exam Vitals: Vital Signs Temp Pulse Pulse Resp BP Pulse Ox 09/16/18 08:00 97.9 F 82 20 107/72 94 L 09/16/18 03:55 97.7 F 74 16 100/56 93 L 09/15/18 21:41 97.0 F L 73 18 98/56 97 09/15/18 19:08 97.8 F 70 16 96/61 97 09/15/18 18:00 98.1 F 71 16 99/55 94 L 09/15/18 16:50 67 16 102/47 95 09/15/18 15:50 65 16 108/61 96 09/15/18 15:20 69 16 93/52 97 09/15/18 14:40 67 16 95/63 97 09/15/18 14:25 68 16 109/69 97 09/15/18 14:10 62 16 108/65 97 09/15/18 13:55 97.9 F 71 16 125/67 97 09/15/18 13:20 68 16 104/52 95 09/15/18 13:05 61 16 113/50 100 09/15/18 12:50 66 16 115/56 95 09/15/18 12:35 65 16 106/69 95 09/15/18 12:23 71 16 145/66 99 09/15/18 12:08 96.9 F L 79 16 128/75 98 Intake and Output 09/15/18 09/16/18 09/16/18 22:59 06:59 14:59 Intake Total 600 600 Output Total 380 Balance 600 -380 600 Intake: Oral 600 600 Output: Urine 380 Straight 350 Other: Voiding Method Toilet Results Labs: Abnormal Lab Results - Last 24 Hours (Table) 09/15/18 09/15/18 09/16/18 Range/Units 12:28 17:00 07:27 POC Glucose (mg/dL) 255 H 189 H 184 H (75-99) mg/dL
[2018-09-16] MEDS ORDERED: INSULIN ASPART 100 UNIT/ML 1 ML 10 ML VIAL SQ SCH (12:30)
[2018-09-16 22:19] LABS: Hemoglobin A1C 7.8 % (4.0-6.0)
== END 2018-09-16 12:06 | disposition home or self-care (01) ==
LOC: OR 13:15 → 6PED 13:16 → OR 09-16 12:06
PROVIDERS: ATTEND Surgery
DX: K44.9 Diaphragmatic hernia without obstruction or gangrene (principal); K80.10 Calculus of gallbladder with chronic cholecystitis without obstruction; K21.9 Gastro-esophageal reflux disease without esophagitis; E11.9 Type 2 diabetes mellitus without complications; E78.5 Hyperlipidemia, unspecified; I10 Essential (primary) hypertension; E07.9 Disorder of thyroid, unspecified; F41.9 Anxiety disorder, unspecified; E66.9 Obesity, unspecified; Z68.33 Body mass index [BMI] 33.0-33.9, adult; Z87.440 Personal history of urinary (tract) infections; Z79.84 Long term (current) use of oral hypoglycemic drugs; Z79.82 Long term (current) use of aspirin; Z79.890 Hormone replacement therapy; Z79.899 Other long term (current) drug therapy; Z88.8 Allergy status to other drugs, medicaments and biological substances; Z91.048 Other nonmedicinal substance allergy status
CPT/HCPCS: 86900; 86901; 88304; 86850; 86870; 86880; 83036; 74210; 36415; 43280; 47562; C1781; J1644; J1100; J2765 ×2; J2405; J1650; J1170 ×3; J0690; Q9967

== ENCOUNTER 2018-09-22 21:18 | Emergency (ER) | payer MEDICARE, OTHER ==
[2018-09-22 21:40] VITALS: RESP 18
[2018-09-22 23:00] LABS: Basophils # (A) 0.1 k/uL (0-0.2); Basophils % (A) 0 %; Eosinophils # (A) 0.2 k/uL (0-0.7); Eosinophils % (A) 1 %; HCT 38.4 % (34.0-46.0); HGB 12.6 gm/dL (11.4-16.0); Lymphocytes # (A) 2.6 k/uL (1.0-4.8); Lymphocytes % (A) 22 %; MCH 30.4 pg (25.0-35.0); MCHC 32.9 g/dL (31.0-37.0); MCV 92.3 fL (80.0-100.0); Mean Platelet Volume 6.5; Monocytes # (A) 0.6 k/uL (0-1.0); Monocytes % (A) 5 %; Neutrophils # (A) 7.9 k/uL (1.3-7.7); Neutrophils % (A) 68 %; Platelet Count 456 k/uL (150-450); RBC 4.16 m/uL (3.80-5.40); RDW 12.8 % (11.5-15.5); WBC 11.7 k/uL (3.8-10.6)
--- NOTE | 2018-09-22 23:05 | ED ---
General Adult HPI - General Chief complaint: Abdominal Pain Stated complaint: Abd pain post op Time Seen by Provider: 09/22/18 22:35 Source: patient Mode of arrival: ambulatory Limitations: no limitations - History of Present Illness Initial comments: This patient is a 73-year-old woman who presents to be evaluated for right- sided pain that is at approximately at the costal margin. The patient relates that she had laparoscopic cholecystectomy and hiatal hernia repair 1 week ago on Saturday with . The patient states that the symptoms have been coming on since yesterday in the afternoon. She states it is an aching pain, moderate, she had not been using any of the pain medication that she had after surgery but she took 1 earlier. Onset/Timin -: days(s) Location: chest Consistency: constant Improves with: none Worsens with: none Associated Symptoms: denies other symptoms Treatments Prior to Arrival: other (Hydrocodone) - Related Data Home Medications Medication Instructions Recorded Confirmed ALPRAZolam [Xanax] 0.25 mg PO BID PRN 03/07/16 09/22/18 Aspirin 81 mg PO DAILY 03/07/16 09/22/18 Glimepiride [Amaryl] 4 mg PO BID 03/07/16 09/22/18 Losartan/Hydrochlorothiazide 0.5 tab PO BID 03/07/16 09/22/18 [Losartan-Hctz 100-25 mg Tab] Omeprazole [PriLOSEC] 20 mg PO AC-BID 03/07/16 09/22/18 Simvastatin [Zocor] 40 mg PO HS 03/07/16 09/22/18 metFORMIN HCL [Glucophage] 500 mg PO BID 03/07/16 09/22/18 sitaGLIPtin [Januvia] 100 mg PO DAILY 03/07/16 09/22/18 Cholecalciferol [Vitamin D3] 1,000 unit PO DAILY 03/09/16 09/22/18 Acetaminophen/Diphenhydramine 1 tab PO HS 08/22/18 09/22/18 [Tylenol PM 500-25mg] Atenolol 25 mg PO BID 08/22/18 09/22/18 Cyanocobalamin (Vitamin B-12) 1,000 mcg PO DAILY 08/22/18 09/22/18 [Vitamin B-12] Levothyroxine Sodium [Synthroid] 150 mcg PO QAM 08/22/18 09/22/18 Naproxen Sodium [Aleve] 220 mg PO Q12H PRN 08/22/18 09/22/18 HYDROcodone/APAP 5-325MG [[place] 1 tab PO Q4HR PRN 09/22/18 09/22/18 5-325] Sulfamethox-Tmp 800-160Mg [Bactrim 1 tab PO Q12HR 09/22/18 09/22/18 DS 800-160 mg] Previous Rx's Medication Instructions Recorded Cyclobenzaprine [Flexeril] 10 mg PO TID #15 tab 09/23/18 Allergies Allergy/AdvReac Type Severity Reaction Status Date / Time niacin Allergy Rash/Hives Verified 09/22/18 21:52 adhesive tape AdvReac VERY RED Verified 09/22/18 21:52 SKIN Review of Systems ROS Statement: Those systems with pertinent positive or pertinent negative responses have been documented in the HPI. ROS Other: All systems not noted in ROS Statement are negative. Constitutional: Denies: fever, chills, weakness Respiratory: Denies: cough, dyspnea Cardiovascular: Reports: chest pain. Denies: palpitations, orthopnea, edema Gastrointestinal: Reports: abdominal pain. Denies: nausea, vomiting, diarrhea, constipation Genitourinary: Denies: dysuria, hematuria Musculoskeletal: Denies: back pain Skin: Denies: rash Neurological: Denies: headache, weakness, numbness Past Medical History Past Medical History: Diabetes Mellitus, GERD/Reflux, Hyperlipidemia, Hypertension, Pneumonia, Thyroid Disorder Additional Past Medical History / Comment(s): HIATAL HERNIA, History of Any Multi-Drug Resistant Organisms: None Reported Past Surgical History: Cholecystectomy, Hernia Repair Additional Past Surgical History / Comment(s): BACK SURGERY X3, CATARACT WITH IMPLANTS-BILATERAL Past Anesthesia/Blood Transfusion Reactions: No Reported Reaction Past Psychological History: Anxiety Smoking Status: Never smoker Past Alcohol Use History: None Reported Past Drug Use History: None Reported - Past Family History Sister(s) Family Medical History: Cancer Additional Family Medical History / Comment(s): LIVER CANCER Brother(s) Family Medical History: Cancer General Exam Limitations: no limitations General appearance: alert, in no apparent distress Head exam: Present: atraumatic, normocephalic Eye exam: Present: normal appearance. Absent: scleral icterus, conjunctival injection ENT exam: Present: normal oropharynx Neck exam: Present: normal inspection Respiratory exam: Present: normal lung sounds bilaterally. Absent: respiratory distress, wheezes, rales, rhonchi, stridor Cardiovascular Exam: Present: regular rate, normal rhythm, normal heart sounds. Absent: systolic murmur, diastolic murmur, rubs, gallop GI/Abdominal exam: Present: soft, other (Patient's laparoscopic incisions have a normal postsurgical appearance. They're clean dry and intact. No abnormal erythema, warmth or any drainage.). Absent: distended, tenderness, guarding, rebound, mass Extremities exam: Present: normal inspection, normal capillary refill. Absent: pedal edema, calf tenderness Back exam: Present: normal inspection. Absent: CVA tenderness (R), CVA tenderness (L) Neurological exam: Present: alert Skin exam: Present: warm, dry, intact, normal color. Absent: rash Course Vital Signs 09/22/18 09/23/18 21:35 02:25 Temperature 98.2 F 97 F L Pulse Rate 92 91 Respiratory 18 18 Rate Blood Pressure 127/80 114/83 O2 Sat by Pulse 93 L 98 Oximetry Medical Decision Making - Medical Decision Making This patient is a 73-year-old woman presenting with pain to the area of the costal margin approximately week after surgery. She did have pleuritic component therefore CT scan obtained to rule out pulmonary embolus. The patient 's remainder of her workup is benign. She is feeling better following medication and wishes to go home and follow with Dr. Dominique, at this point she does seem stable for that. We discussed return parameters. - Lab Data Result diagrams: 09/22/18 22:45 09/22/18 22:45 Lab Results 09/22/18 09/22/18 Range/Units 22:45 22:45 WBC 11.7 H (3.8-10.6) k/uL RBC 4.16 (3.80-5.40) m/uL Hgb 12.6 (11.4-16.0) gm/dL Hct 38.4 (34.0-46.0) % MCV 92.3 (80.0-100.0) fL MCH 30.4 (25.0-35.0) pg MCHC 32.9 (31.0-37.0) g/dL RDW 12.8 (11.5-15.5) % Plt Count 456 H (150-450) k/uL Neutrophils % 68 % Lymphocytes % 22 % Monocytes % 5 % Eosinophils % 1 % Basophils % 0 % Neutrophils # 7.9 H (1.3-7.7) k/uL Lymphocytes # 2.6 (1.0-4.8) k/uL Monocytes # 0.6 (0-1.0) k/uL Eosinophils # 0.2 (0-0.7) k/uL Basophils # 0.1 (0-0.2) k/uL Sodium 137 (137-145) mmol/L Potassium 5.1 (3.5-5.1) mmol/L Chloride 99 (98-107) mmol/L Carbon Dioxide 24 (22-30) mmol/L Anion Gap 14 mmol/L BUN 25 H (7-17) mg/dL Creatinine 1.28 H (0.52-1.04) mg/dL Est GFR (CKD-EPI)AfAm 48 (>60 ml/min/1.73 sqM) Est GFR (CKD-EPI)NonAf 42 (>60 ml/min/1.73 sqM) Glucose 173 H (74-99) mg/dL Calcium 9.6 (8.4-10.2) mg/dL Total Bilirubin 0.4 (0.2-1.3) mg/dL AST 21 (14-36) U/L ALT 30 (9-52) U/L Alkaline Phosphatase 125 (38-126) U/L Total Protein 7.8 (6.3-8.2) g/dL Albumin 4.3 (3.5-5.0) g/dL Amylase 43 (30-110) U/L Lipase 86 (23-300) U/L Disposition Clinical Impression: Abdominal pain Disposition: HOME SELF-CARE Condition: Good Instructions: Abdominal Pain in Children (ED) Prescriptions: Cyclobenzaprine [Flexeril] 10 mg PO TID #15 tab Is patient prescribed a controlled substance at d/c from ED?: No Referrals: Evaristo Guillory DO [Primary Care Provider] - 1-2 days
[2018-09-22 23:08] LABS: Albumin 4.3 g/dL (3.5-5.0); Calcium 9.6 mg/dL (8.4-10.2); Potassium 5.1 mmol/L (3.5-5.1); Total Bilirubin 0.4 mg/dL (0.2-1.3); Total Protein 7.8 g/dL (6.3-8.2)
--- NOTE | 2018-09-22 23:17 | XR ---
EXAMINATION TYPE: XR chest 2V DATE OF EXAM: 09/22/2018 COMPARISON: 08/22/2018 HISTORY: Chest pain TECHNIQUE: Frontal and lateral views of the chest are obtained. FINDINGS: There is patchy linear density in the mid and lower lung fraser. There is no heart failure. There is slight blunting of the right costophrenic angle. Bony thorax is intact. IMPRESSION: There is new patchy bilateral atelectasis compared to last exam. New pleural reaction at the right jalil ng base. Small pleural fluid is probably present.
[2018-09-23] MEDS ORDERED: SODIUM CHLORIDE 0.9% 500 ML 500 ML IV STA (00:04)
--- NOTE | 2018-09-23 00:52 | CT ---
EXAMINATION TYPE: CT chest angio for PE DATE OF EXAM: 09/23/2018 COMPARISON: None HISTORY: Chest pain CT DLP: 262.6 mGycm Automated exposure control for dose reduction was used. CONTRAST: CT Chest for pulmonary embolism performed with with IV Contrast, patient injected with 50ml mL of Iso fuentes 370. There are 3-D post processed images. FINDINGS: There is no mediastinal adenopathy. There are a few paratracheal lymph nodes that measure less than 1 cm. There are no hilar masses. There is normal contrast opacification of the pulmonary arteries. I s ee no filling defect. There is small right pleural effusion. There is patchy atelectasis at the lung bases and more on the right side. There is no pericardial effusion. Thoracic aorta shows no aneurysm or dissection. The bony thorax is intact. Sternum is intact. Thoracic ascending aorta measures up to 3.8 cm. IMPRESSION: There is pleural thickening and atelectasis at the lung bases mainly on the right side. No evidence o f pulmonary embolism.
[2018-09-23] MEDS ORDERED: MORPHINE SULFATE 4 MG/ML SYRINGE IV STA (01:36)
[2018-09-23 02:26] VITALS: BP 114/83; PULSE 91; TEMP 97
== END 2018-09-23 02:25 | disposition home or self-care (01) ==
LOC: EC 21:18
DX: R10.9 Unspecified abdominal pain (principal); G89.18 Other acute postprocedural pain; I10 Essential (primary) hypertension; E11.9 Type 2 diabetes mellitus without complications; K21.9 Gastro-esophageal reflux disease without esophagitis; E78.5 Hyperlipidemia, unspecified; E07.9 Disorder of thyroid, unspecified; F41.9 Anxiety disorder, unspecified; Z79.82 Long term (current) use of aspirin; Z79.84 Long term (current) use of oral hypoglycemic drugs; Z79.1 Long term (current) use of non-steroidal anti-inflammatories (NSAID); Z79.899 Other long term (current) drug therapy; Z88.8 Allergy status to other drugs, medicaments and biological substances; Z91.048 Other nonmedicinal substance allergy status; Z90.49 Acquired absence of other specified parts of digestive tract; Z98.890 Other specified postprocedural states
CPT/HCPCS: 36415; 80053; 82150; 83690; 85025; 71046; 71275; 99284; 96374; 96361; J2270; Q9967

== ENCOUNTER → 2018-12-12 | Outpatient (CLI) | payer MEDICARE, OTHER ==
--- NOTE | 2018-12-13 11:13 | CT ---
EXAMINATION TYPE: CT abdomen pelvis wo con DATE OF EXAM: 12/12/2018 COMPARISON: 08/22/2018 HISTORY: Pt c/o stomach gas, bowel issues x several months. Peritoneal abscess. CT DLP: 795.10 mGycm Examination of the solid and hollow viscera is limited given the lack of contrast. FINDINGS: LUNG BASES: No evidence for nodule. No evidence for infiltrate. LIVER/GB: Cholecystectomy changes noted. No space-occupying hepatic lesion. 1.5 cm nonspecific densit y adjacent to the inferior hepatic tip. This is of uncertain etiology. PANCREAS: No pancreatic mass identified. No inflammatory process seen. SPLEEN: No evidence for splenomegaly. No intrasplenic lesions seen. ADRENALS: No adrenal nodules identified. No evidence for thickening. KIDNEYS: No evidence for renal mass. No nephrolithiasis. No hydronephrosis. BOWEL: Appendix has a normal appearance. No evidence of bowel obstruction. No inflammatory process. S igmoid diverticulosis without diverticulitis. Small hiatal hernia. Lymph nodes: No evidence for adenopathy greater than 1 cm. Abdominal aorta: Atheromatous changes seen. No evidence for aneurysm. Genital organs: No significant abnormality. Other: Postoperative changes lumbar spine. Anterolisthesis L3 and L4 and L5 on S1. IMPRESSION: 1.1.5 cm nonspecific density adjacent to the inferior hepatic tip. This is of uncertain etiology.
== END ==
LOC: RADCTMAIN 13:41
PROVIDERS: ATTEND Family Medicine
DX: K65.0 Generalized (acute) peritonitis (principal); K65.1 Peritoneal abscess
CPT/HCPCS: 36415; 74176; 82565; 84520

== ENCOUNTER → 2019-05-16 | Outpatient (CLI) | payer MEDICARE, OTHER ==
--- NOTE | 2019-05-17 13:03 | MR ---
EXAMINATION TYPE: MR lumbar spine wo con DATE OF EXAM: 05/16/2019 COMPARISON: Prior lumbar MRI 03/13/2012 HISTORY: LBP, sciatica lt hip, hx surgery TECHNIQUE: Multiplanar, multisequence images of the lumbar spine were acquired. L1-L2: Normal disc appearance without desiccation. No herniation, protrusion or disc bulging. No ca nal stenosis is present. Foramina are patent bilaterally. L2-L3: Posterior extension endplate disc complex causes minimal anterior mass effect sac. No signific ant central stenosis or foraminal encroachment. L3-L4: Posterior extension endplate disc complex is present causing mild anterior mass effect on the thecal sac. No significant central stenosis. Circumferential extension endplate disc complex associat ed with the listhesis results in bilateral foraminal encroachment. There is facet arthropathy change and possibly ankylosis. L4-L5: No spinal stenosis or foraminal encroachment. No disc herniation. L5-S1: Postop changes are present with stable appearance, laminectomies, no significant spinal stenos is. There is loss of disc height, near obliteration of the disc space. There are some facet arthropat hy changes. There may be some encroachment on the lateral recesses. Some right-sided foraminal encroa chment due to sequential extension of endplate disc complex. No disc herniation. There is extensive susceptibility artifact due to patient's hardware for posterior fusion at L5-S1, L 2-3 as on prior exam. There is an anterolisthesis grade 1 L4-5, L3-4. Loss of disc height and signal present at the intervertebral levels especially L4-5, L3-4, L2-3 similar to prior exam. Endplate disc ogenic marrow signal changes also present with multilevel spondylosis. No paraspinal masses are ident ified. Conus medullaris has a normal appearance. Cortical cyst at the upper pole the left kidney has increased in size and measures 13 mm in the left kidney upper pole compared to prior exam when it me asured 9 mm IMPRESSION: Postoperative changes and degenerative disc disease, spondylolisthesis and multilevel foraminal encro achment similar to prior exam. Additional findings above.
== END | disposition home or self-care (01) ==
LOC: RADMRIMAIN 12:32
PROVIDERS: ATTEND Family Medicine
DX: M43.16 Spondylolisthesis, lumbar region (principal); M51.36 Other intervertebral disc degeneration, lumbar region; M46.96 Unspecified inflammatory spondylopathy, lumbar region; Z98.1 Arthrodesis status
CPT/HCPCS: 72148

== ENCOUNTER → 2019-07-14 | Outpatient (CLI) | payer MEDICARE, OTHER ==
[2019-07-14 17:03] LABS: African American GFR (CKD) 46.8 (60.0-200.0); Albumin 4.5 g/dL (3.80-4.90); Albumin/Globulin Ratio 2.14 (1.60-3.17); Anion Gap 11.3 mmol/L (4.00-12.00); BUN/Creat Ratio 27.69 Ratio (12.00-20.00); Calcium 9.3 mg/dL (8.7-10.3); Carbon Dioxide 24.7 mmol/L (21.6-31.8); Chol/HDL Ratio 2.98; Globulin 2.1 g/dL (1.6-3.3); LDL Cholesterol,Calculated 60.6 mg/dL (0.0-131.0); Potassium 4.9 mmol/L (3.5-5.5); Total Bilirubin 0.4 mg/dL (0.3-1.2); Total Protein 6.6 g/dL (6.2-8.2); VLDL Calculation 50.4 mg/dL (5.00-40.00)
[2019-07-14 22:44] LABS: Hemoglobin A1C 8.2 % (4.0-6.0)
== END | disposition home or self-care (01) ==
LOC: LABWHC1 08:31
PROVIDERS: ATTEND Internal Medicine Endocrinology, Diabetes & Metabolism
DX: E11.65 Type 2 diabetes mellitus with hyperglycemia (principal)
CPT/HCPCS: 36415; 80053; 80061; 82043; 82570; 83036; 84443

== ENCOUNTER → 2020-05-24 | Outpatient (CLI) | payer MEDICARE, OTHER ==
[2020-05-24 11:57] VITALS: BP 115/86; PULSE 95; RESP 18
--- NOTE | 2020-05-24 12:21 | P.PAINCN ---
History of Present Illness - Reason for Consult Consult date: 05/24/20 - History of Present Illness This is a 75-year-old patient referred by Dr. Palacio for evaluation for SI joint dysfunction. She presents with a chief complaint of low back pain which has been present for approximately 6 months, rated as 5/10, right worse than left, described as aching and constant, worse with walking and activity, better with sleep, movement. She denies radiation to lower extremities. She does have an area of the left upper thigh which feels tight. Of note, she has had 4 spinal fusion surgeries, most recently redo L3-4 fusion done in July 2019. She is fused from L2 to S1. Patient has been taking medications from primary care physician including [place] 5/325 one to 2 tablets per day with some relief. Patient denies adverse drug effects from medications. Patient also denies new- onset weakness, bowel/bladder incontinence, or any other signs or symptoms of cauda equina syndrome. There are no signs of acute intoxication, and no indications of medication diversion or overuse. Patient has had injections previously. In addition to above, 13-point review of systems is also negative for chest pain, shortness of breath, changes in vision, changes in hearing, new onset weakness, abdominal pain, diarrhea, extreme fatigue, malaise, fever, skin changes, homicidal or suicidal ideation, or bowel or bladder incontinence. Physical exam: Vital Signs: Reviewed in EMR GENERAL: Well appearing, in no acute distress PSYCH: Mood and affect is appropriate. Awake, alert, and oriented SKIN: Skin color, texture, turgor normal, no rashes or lesions HEENT: Normocephalic, atraumatic. EOM intact CV: No pedal edema RESP: Respirations are unlabored, no audible wheezing GI: Abdomen non-distended MUSCULOSKELETAL: Bilateral lower extremity strength is normal and symmetric. No atrophy or tone abnormalities are noted. Lumbar spine: Straight leg raising in the sitting position is negative for radicular pain. No pain to palpation over the lumbar spine and paraspinous muscles. Surgical scar is well-healed. Buttocks: Pain to palpation over bilateral PSIS, Mikaela test is positive bilaterally, sacral thrust positive bilaterally, Gaenslen's test positive bilaterally Extremities: Peripheral joint ROM is full and pain free without obvious instability or laxity in all four extremities. No edema or skin discolorations noted. NEUR: Bilateral lower extremity coordination and muscle stretch reflexes are physiologic and symmetric. Negative clonus. Reduced sensation to light touch noted in left thigh. Cranial nerves are grossly intact. Imaging: MRI lumbar spine done at [facility] on 05/16/2019 shows posterior spinal fusion from L23 to L5-S1 Assessment: 1. Bilateral sacroiliitis 2. Posterior spinal fusion from L2 to S1 3. Obesity Plan: 1. . Procedures: We will schedule bilateral SI joint injections. We discussed the risks and benefits of this procedure 2. Medications: Per primary care physician 3. Disposition: For above-mentioned procedure Past Medical History Past Medical History: Diabetes Mellitus, GERD/Reflux, Hyperlipidemia, Hypertension, Osteoarthritis (OA), Pneumonia, Thyroid Disorder Additional Past Medical History / Comment(s): HIATAL HERNIA, decreased kidney function History of Any Multi-Drug Resistant Organisms: None Reported Past Surgical History: Cholecystectomy, Hernia Repair Additional Past Surgical History / Comment(s): BACK SURGERY X4, CATARACT WITH IMPLANTS-BILATERAL Past Anesthesia/Blood Transfusion Reactions: No Reported Reaction Smoking Status: Never smoker - Past Family History Sister(s) Family Medical History: Cancer Additional Family Medical History / Comment(s): LIVER CANCER Brother(s) Family Medical History: Cancer Medications and Allergies Home Medications Medication Instructions Recorded Confirmed Type ALPRAZolam [Xanax] 0.25 mg PO BID PRN 03/07/16 05/24/20 History Aspirin 81 mg PO DAILY 03/07/16 05/24/20 History Glimepiride [Amaryl] 4 mg PO DAILY 03/07/16 05/24/20 History Losartan/Hydrochlorothiazide 0.5 tab PO BID 03/07/16 05/24/20 History [Losartan-Hctz 100-25 mg Tab] Omeprazole [PriLOSEC] 20 mg PO AC-BID 03/07/16 05/24/20 History Simvastatin [Zocor] 40 mg PO HS 03/07/16 05/24/20 History metFORMIN HCL [Glucophage] 500 mg PO BID 03/07/16 05/24/20 History sitaGLIPtin [Januvia] 100 mg PO DAILY 03/07/16 05/24/20 History Cholecalciferol [Vitamin D3 (25 1,000 unit PO DAILY 03/09/16 05/24/20 History Mcg = 1000 Iu)] Acetaminophen/Diphenhydramine 1 tab PO HS 08/22/18 05/24/20 History [Tylenol PM 500-25mg] Cyanocobalamin (Vitamin B-12) 1,000 mcg PO DAILY 08/22/18 05/24/20 History [Vitamin B-12] Levothyroxine Sodium [Synthroid] 150 mcg PO QAM 08/22/18 05/24/20 History atenoloL [Atenolol] 25 mg PO DAILY PRN 08/22/18 05/24/20 History Methocarbamol [Robaxin-750] 750 mg PO BID PRN 05/20/20 05/24/20 History HYDROcodone/APAP 5-325MG [[place] 1 tab PO BID 05/24/20 05/24/20 History 5-325] Allergies Allergy/AdvReac Type Severity Reaction Status Date / Time niacin Allergy Rash/Hives Verified 05/24/20 11:44 adhesive tape AdvReac VERY RED Verified 05/24/20 11:44 SKIN PQRS Measure Charge Sheet Measure #130: Documentation of Current Meds in Medical Chart: Patient's medications documented in chart Measure #226: Tobacco Use: Screen & Cessation Intervention: Pt not a tobacco user Measure #111: Pneumonia Vaccination: Pneumococcal vaccine administered or previously received Measure #47: Advance Care Plan: Advance care planning discussed & documented, pt chose/unable to give Measure #412: Opioid Treatment Agreement: No documentation of signed opioid treatment agreement Measure #408: Opioid Therapy Follow-up Evaluation: Patient had NO f/u eval minimum every 3 months during opioid therapy Measure #317: Preventitive Care & Scrn High Bld Press & F/U: Normal blood pressure, f/u not required Measure #128: Body Mass Index (BMI) Screening & Follow-up: BMI documented ABOVE normal parameters - f/u documented Measure #131: Pain Assessment & Follow-up: Pain positive & plan documented, Follow-up scheduled Measure #431: Unhealthy Alcohol Use Preventative Care & Scrn: Patient not identified as an unhealthy alcohol user PQRS Narrative: Smoking Status Never smoker Pain Intensity [Sacrum] 5 Hx Alcohol Use (MH) No Home Medications: Ambulatory Orders ALPRAZolam [Xanax] 0.25 mg PO BID PRN 03/07/16 Aspirin 81 mg PO DAILY 03/07/16 Glimepiride [Amaryl] 4 mg PO DAILY 03/07/16 Losartan/Hydrochlorothiazide [Losartan-Hctz 100-25 mg Tab] 0.5 tab PO BID 03/07/16 Omeprazole [PriLOSEC] 20 mg PO AC-BID 03/07/16 Simvastatin [Zocor] 40 mg PO HS 03/07/16 metFORMIN HCL [Glucophage] 500 mg PO BID 03/07/16 sitaGLIPtin [Januvia] 100 mg PO DAILY 03/07/16 Cholecalciferol [Vitamin D3 (25 Mcg = 1000 Iu)] 1,000 unit PO DAILY 03/09/16 Acetaminophen/Diphenhydramine [Tylenol PM 500-25mg] 1 tab PO HS 08/22/18 Cyanocobalamin (Vitamin B-12) [Vitamin B-12] 1,000 mcg PO DAILY 08/22/18 Levothyroxine Sodium [Synthroid] 150 mcg PO QAM 08/22/18 atenoloL [Atenolol] 25 mg PO DAILY PRN 08/22/18 Methocarbamol [Robaxin-750] 750 mg PO BID PRN 05/20/20 HYDROcodone/APAP 5-325MG [[place] 5-325] 1 tab PO BID 05/24/20
== END | disposition home or self-care (01) ==
LOC: PNWHC3 11:34
PROVIDERS: ATTEND Anesthesiology
DX: M54.5 Low back pain (principal); M46.1 Sacroiliitis, not elsewhere classified; Z98.1 Arthrodesis status; E66.9 Obesity, unspecified; E07.9 Disorder of thyroid, unspecified; K21.9 Gastro-esophageal reflux disease without esophagitis; E78.5 Hyperlipidemia, unspecified; E11.9 Type 2 diabetes mellitus without complications; I10 Essential (primary) hypertension; M19.90 Unspecified osteoarthritis, unspecified site; Z91.09 Other allergy status, other than to drugs and biological substances; Z79.899 Other long term (current) drug therapy; Z79.82 Long term (current) use of aspirin; Z79.891 Long term (current) use of opiate analgesic; Z79.890 Hormone replacement therapy; Z79.84 Long term (current) use of oral hypoglycemic drugs
CPT/HCPCS: 99211

== ENCOUNTER → 2020-05-31 | Day surgery (SDC) | payer MEDICARE, OTHER ==
[~2020-05-31] MED LIST changes: -BUPIVACAIN-EPI 0.25%-1:200,000 30 ML VIAL SQ ONE; -DEXAMETHASONE SOD PHOSPHATE 10 MG/ML 1 ML VIAL IV ONE; -GLYCOPYRROLATE 0.2 MG/ML 2 ML VIAL ONE; -HEPARIN SODIUM,PORCINE 5,000 UNIT/ML 1 ML VIAL SQ ONE; +IOPAMIDOL M200 10 ML VIAL ONE; +IV FLUID CONTINUATION 1,000 ML IV ONE; -KETOROLAC 30 MG/ML 1 ML VIAL ONE; -LACTATED RINGERS 1,000 ML IV SCH; -LIDOCAINE 1% INJ 10MG/ML (20 ML MDV) ONE; -MIDAZOLAM 2 MG/2 ML VIAL IV PRN; -MORPHINE SULFATE 10 MG/ML SYRINGE ONE; -NEOSTIGMINE 1 MG/ML 10 ML VIAL ONE; -ONDANSETRON 4 MG/2 ML VIAL IVP ONE; -ONDANSETRON 4 MG/2 ML VIAL IVP PRN; -PROPOFOL 10 MG/ML 20 ML VIAL IV ONE; -ROCURONIUM BROMIDE 10 MG/ML 10 ML VIAL IV ONE; +ROPIVACAINE 5MG/ML 20ML VIAL ONE; +TRIAMCINOLONE ACETONIDE 40 MG/ML 1 ML VIAL ONE; -ceFAZolin IN SWFI 2 GM/20 ML SYRINGE IVP ONE; -fentaNYL (PF) 50 MCG/ML 2 ML AMP ONE
[2020-05-31 08:50] VITALS: TEMP 98
[2020-05-31] MEDS: LACTATED RINGERS 1,000 ML IV SCH ×2 (09:04→09:09)
[2020-05-31 09:07] LABS: Glucose,Whole Blood 181 mg/dL (75-99)
--- NOTE | 2020-05-31 09:25 | P.PCN ---
Date of Procedure: 05/31/20 Description of Procedure: Preoperative diagnoses: bilateral sacroilitis Postoperative diagnoses: bilateral sacroilitis. Procedure: bilateral sacroiliac joint steroid injection under fluoroscopic guidance. Surgeon: Dariusz Quesada MD Anesthesia: 2 mL of 1% lidocaine and moderate sedation per hospital guidelines sedation time 9 Fluoroscopy was used for the procedure and fluoroscopic images were saved to the radiology portion of the patient's chart. EBL: None Procedure indication: The patient had a history of severe chronic low back pain, diagnosed with sacroiliitis unresponsive to conservative treatment. Procedure description: The patient was seen and identified in the preoperative holding area, risks and benefits and alternative of the procedure and possible complications discussed with the patient, and patient agreed with the preceding, patient signed the consent, an IV was started, and vital signs were monitored and were stable throughout the procedure, patient was placed in the prone position on table and the lumbosacral area was prepped and draped with a sterile fashion, vital signs were closely monitored during the procedure, the fluoroscopy camera was placed in the contralateral oblique view on the bilateral sacroiliac joint and the lower part of the joint was identified . Then the skin and subcutaneous tissue was anesthetized using 2 mL of 1% lidocaine then a 22- gauge Quincke-type spinal needle advanced slowly under fluoroscopy and placed in the posterior and inferior border of the right sacroiliac joint, placement confirmed with AP and lateral view, and after appropriate needle placement confirmed and after negative aspiration for heme, 1 mL of Isovue 200 was injected revealing intra-articular spread. Then a solution consisting of 2 ml of ropivacaine 0.5% and 20 mg of Kenalog injected after negative aspiration, no paresthesia during the injection, no resistance to injection, and the needle was removed. The procedure was then repeated on the left side. Total of 40 mg of Kenalog was used for the procedure. Patient tolerated the procedure well wi thout any complication. The patient was returned to supine position after the back was cleaned and a Band-Aid applied, the patient was transported to recovery room in stable condition and monitored for 30 minutes before being discharged home. The patient will follow up with the pain clinic in a few weeks
[2020-05-31 09:35] VITALS: RESP 16
[2020-05-31 09:49] VITALS: BP 111/70; PULSE 77
--- NOTE | 2020-05-31 10:18 | FL ---
Fluoroscopy INDICATION: Pain FINDINGS: Fluoroscopy time: 6 seconds. Images obtained: 2. IMPRESSIONS: 1. Documentation of fluoroscopy.
== END ==
LOC: ORPAIN 08:21
PROVIDERS: ATTEND Anesthesiology
DX: G89.29 Other chronic pain (principal); M46.1 Sacroiliitis, not elsewhere classified; E11.9 Type 2 diabetes mellitus without complications; Z79.4 Long term (current) use of insulin; Z79.82 Long term (current) use of aspirin
CPT/HCPCS: J2250; J3301; Q9966; J2795; G0260

== ENCOUNTER 2020-06-30 07:49 | Day surgery (SDC) | payer MEDICARE, OTHER ==
[2020-06-28 11:56] VITALS: BMI 32.3
[~2020-06-30 07:49] MED LIST changes: -IOPAMIDOL M200 10 ML VIAL ONE; -IV FLUID CONTINUATION 1,000 ML IV ONE; +LACTATED RINGERS 1,000 ML IV SCH; -MIDAZOLAM 2 MG/2 ML VIAL ONE; -ROPIVACAINE 5MG/ML 20ML VIAL ONE; -TRIAMCINOLONE ACETONIDE 40 MG/ML 1 ML VIAL ONE
[2020-06-30 08:28] VITALS: TEMP 97.4
[2020-06-30] MEDS ORDERED: LACTATED RINGERS 1,000 ML IV ONE (08:28)
[2020-06-30] MEDS ORDERED: MIDAZOLAM 2 MG/2 ML VIAL ONE (08:42)
[2020-06-30] MEDS ORDERED: fentaNYL (PF) 50 MCG/ML 2 ML AMP ONE (08:42)
[2020-06-30] MEDS ORDERED: ROPIVACAINE 5MG/ML 20ML VIAL ONE (08:42)
[2020-06-30] MEDS ORDERED: methylPREDNISolone ACETATE 40 MG/ML 1 ML VIAL ONE (08:42)
[2020-06-30 08:44] LABS: Glucose,Whole Blood 148 mg/dL (75-99)
[2020-06-30] MEDS ORDERED: IV FLUID CONTINUATION 800 ML IV ONE (09:10)
--- NOTE | 2020-06-30 09:14 | P.PCN ---
Date of Procedure: 06/30/20 Procedure(s) Performed: Procedure= bilateral sacroiliac joints steroid injection under fluoroscopy guidance (fluoroscopy image stored on file in the radiology Department ) Preoperative diagnosis= 1-bilateral sacroiliitis Postoperative diagnosis=Same as preop Diagnosis . Complication = none Condition= stable Anesthesia= moderate sedation with intravenous Versed 1 mg , and fentanyl 50 micrograms . Indication for the procedure= patient complaining of low back pain , examination was positive for severe tenderness over the sacroiliac joints bilaterally and patient diagnosed with sacroiliitis, for this reason she was good candidate for sacroiliac joint steroid injection. Description of the procedure= procedure risk and benefits discussed with the patient, including but not limited, risk of infection and bleeding, and ALLERGIC reaction to the medication and not complete pain relief and patient agreed with the preceding patient taken to the operating room, placed in prone position or standard monitors applied to the patient then after induction of anesthesia back prepped with chlorhexidine 3 times , Then under strict sterile technique, first I did the right sacroiliac joint the which was identified under fluoroscopy guidance been local infiltration of the skin and subcu interstitial with lidocaine 1% then 22-gauge Quincke Needle advanced slowly under fluoroscopy and placed in the right sacroiliac joint needle placement confirmed with AP and oblique and lateral view and after appropriate needle placement confirmed and after negative aspiration, or heme , then Ropivacaine 0.5% 3 mL, and 20 mg of Depo-Medrol mixed together and injected in the right sacroiliac joint after negative aspiration patient tolerated the procedure well without any complication. Then the left sacroiliac joint steroid injection done under strict sterile technique local infiltration of the skin and subcu interstitial at the location of the left sacroiliac joint then a 22-gauge Quincke Needle advanced slowly under fluoroscopy time placed in the left sacroiliac joint, needle placement confirmed with AP and oblique and lateral view then after appropriate needle placement confirmed and after negative aspiration 0.5% Marcaine 3 mL and 20 mg of Depo-Medrol injected in the left sacroiliac joint after negative aspiration patient tolerated the procedure well that any complications and she will follow up in clinic 3 weeks
--- NOTE | 2020-06-30 09:16 | FL ---
Fluoroscopy History: BILATERAL SI JOINT INJ 21 SEC FL, 2 FILMS
[2020-06-30 09:17] VITALS: BP 121/84; PULSE 82; RESP 20
== END 2020-06-30 09:35 | disposition home or self-care (01) ==
LOC: ORPAIN 07:49
PROVIDERS: ATTEND Specialist
DX: M46.1 Sacroiliitis, not elsewhere classified (principal); I10 Essential (primary) hypertension; Z91.09 Other allergy status, other than to drugs and biological substances; E11.9 Type 2 diabetes mellitus without complications; E03.9 Hypothyroidism, unspecified; Z88.8 Allergy status to other drugs, medicaments and biological substances
CPT/HCPCS: J2250; J1030; J3010; J2795; G0260; 99152

== ENCOUNTER → 2020-07-25 | Outpatient (CLI) | payer MEDICARE, OTHER ==
[2020-07-25 13:02] VITALS: BP 129/78; PULSE 102; RESP 18; TEMP 98.6
--- NOTE | 2020-07-25 13:14 | P.PAINPG ---
Subjective Progress Note Date: 07/25/20 This is a follow-up visit for this 75 years old female with a chronic history of severe low back pain, she is diagnosed with bilateral sacroiliitis and lumbar degenerative disc disease and she had a history of lumbar fusion surgery, status post bilateral sacroiliac joint steroid injection x2 , she did very well after the injection and currently she reported that her pain level is 1/10, she is able to ambulate on her own she used a cane to move around, she denies any motor or sensory deficit she denies any fever or night sweats, she denies any change in the bowel movements or urination, she continued to use [place] occasionally Objective - Vital Signs Vital signs: Vital Signs Temp 98.6 F 07/25/20 12:56 Pulse 102 H 07/25/20 12:56 Resp 18 07/25/20 12:56 BP 129/78 07/25/20 12:56 Pulse Ox 96 07/25/20 12:56 - Exam Physical Examinations : -Constitutiona : Cooperative , not in acute distress . -HEENT : nech : supple , no Lymphadenopathy , normal thyroid size . : eyes : no ptosis , no icterus, no photophobia . - neurologic : Cranial nerve II to XII intact , no focal neurological deffecit . -psychatric : alert , oriented X 3 , appropriate affect , intact judgment and insight . -Lymphatic : no Lymphadenopathy . - musculoskeltal : Lumber spine moter stegnth lower extremities ,thigh and legs 5/5 Right side , 5/5 Left side . tenderness over the Sacroiliac joint on the Right , and Left sides Assessment and Plan Plan: Assessment and plan=1-bilateral sacroiliitis. 2-lumbar degenerative disc disease. 3-previous lumbar laminectomy and fusion surgery. Patient doing very well after bilateral sacroiliac joint steroid injection x2 , she will follow up when necessary In the future if patient not think she could be a good candidate for repeat SI joint injection or RFA of the sacroiliac joint Time with Patient: Less than 30 PQRS Measure Charge Sheet Measure #130: Documentation of Current Meds in Medical Chart: Patient's medications documented in chart Measure #226: Tobacco Use: Screen & Cessation Intervention: Pt not a tobacco user Measure #111: Pneumonia Vaccination: Pneumococcal vaccine administered or previously received Measure #47: Advance Care Plan: Advance care planning discussed & documented, pt chose/unable to give Measure #412: Opioid Treatment Agreement: No documentation of signed opioid treatment agreement Measure #408: Opioid Therapy Follow-up Evaluation: Patient had NO f/u eval minimum every 3 months during opioid therapy Measure #317: Preventitive Care & Scrn High Bld Press & F/U: Normal blood pressure, f/u not required Measure #128: Body Mass Index (BMI) Screening & Follow-up: BMI documented ABOVE normal parameters - f/u documented Measure #131: Pain Assessment & Follow-up: Pain positive & plan documented, Follow-up scheduled Measure #431: Unhealthy Alcohol Use Preventative Care & Scrn: Patient not identified as an unhealthy alcohol user PQRS Narrative: Smoking Status Never smoker Blood Pressure 129/78 Pain Intensity [Sacrum] 1 Scale Used Numeric (1 - 10) Hx Alcohol Use (MH) No Home Medications: Ambulatory Orders ALPRAZolam [Xanax] 0.25 mg PO BID PRN 03/07/16 Aspirin 81 mg PO DAILY 03/07/16 Glimepiride [Amaryl] 4 mg PO DAILY 03/07/16 Losartan/Hydrochlorothiazide [Losartan-Hctz 100-25 mg Tab] 0.5 tab PO BID 03/07/16 Omeprazole [PriLOSEC] 20 mg PO AC-BID 03/07/16 Simvastatin [Zocor] 40 mg PO HS 03/07/16 metFORMIN HCL [Glucophage] 500 mg PO BID 03/07/16 sitaGLIPtin [Januvia] 100 mg PO DAILY 03/07/16 Cholecalciferol [Vitamin D3 (25 Mcg = 1000 Iu)] 1,000 unit PO DAILY 03/09/16 Acetaminophen/Diphenhydramine [Tylenol PM 500-25mg] 1 tab PO HS 08/22/18 Cyanocobalamin (Vitamin B-12) [Vitamin B-12] 1,000 mcg PO DAILY 08/22/18 Levothyroxine Sodium [Synthroid] 150 mcg PO QAM 08/22/18 atenoloL [Atenolol] 25 mg PO DAILY PRN 08/22/18 Methocarbamol [Robaxin-750] 750 mg PO BID PRN 05/20/20 HYDROcodone/APAP 5-325MG [[place] 5-325] 1 tab PO BID PRN 05/24/20 Controlled Substance Measures - Controlled Substance Measures Is patient prescribed a controlled substance at discharge?: No
== END | disposition home or self-care (01) ==
LOC: PNWHC3 12:16
PROVIDERS: ATTEND Specialist
DX: G89.29 Other chronic pain (principal); M46.1 Sacroiliitis, not elsewhere classified; M51.36 Other intervertebral disc degeneration, lumbar region; Z98.1 Arthrodesis status; Z79.82 Long term (current) use of aspirin; Z79.84 Long term (current) use of oral hypoglycemic drugs; Z79.899 Other long term (current) drug therapy
CPT/HCPCS: 99211

== ENCOUNTER → 2020-09-14 | Outpatient (CLI) | payer MEDICARE, OTHER ==
--- NOTE | 2020-09-14 11:37 | US ---
EXAMINATION TYPE: US carotid duplex BILAT DATE OF EXAM: 09/14/2020 COMPARISON: NONE CLINICAL HISTORY: R42 Dizziness R27.0 Ataxia. Frequent headaches EXAM MEASUREMENTS: RIGHT: Peak Systolic Velocity (PSV) cm/sec ----- Right CCA: 41.0 ----- Right ICA: 59.0 ----- Right ECA: 173.0 ICA/CCA ratio: 1.4 RIGHT: End Diastole cm/sec ----- Right CCA: 17.5 ----- Right ICA: 16.1 ----- Right ECA: 14.7 LEFT: Peak Systolic Velocity (PSV) cm/sec ----- Left CCA: 45.7 ----- Left ICA: 49.3 ----- Left ECA: 66.3 ICA/CCA ratio: 1.1 LEFT: End Diastole cm/sec ----- Left CCA: 16.8 ----- Left ICA: 16.0 ----- Left ECA: 9.9 VERTEBRALS (direction of flow): Right Vertebral: Antegrade Left Vertebral: Antegrade Rhythm: Normal Bilateral intimal thickening, plaque bilateral bulbs, elevated velocity: right proximal ECA, no signi ficant stenosis. IMPRESSION: No evidence for hemodynamically significant stenosis. Criteria for Assigning % of Stenosis / Diameter reduction (Estimation based on the indirect measurements of the internal carotid artery velocities (ICA PSV). 1. Normal (no stenosis)=ICA PSV < 125 cm/s: ratio < 2.0: ICA EDV<40 cm/s. 2. Less than 50% stenosis=ICA PSV < 125 cm/s: ratio < 2.0: ICA EDV<40 cm/s. 3. 50 to 69% stenosis=ICA PSV of 125 to 230 cm/s: ration 2.0 ? 4.0: ICA EDV 40-100 cm/s. 4. Greater than 70% stenosis to near occlusion= ICA PSV > 230 cm/s: ratio > 4.0: ICA EDV > 100 cm/s. 5. Near occlusion= ICA PSV velocities may be low or undetectable: variable ratio and ICA EDV. 6. Total occlusion=unable to detect flow.
== END | disposition home or self-care (01) ==
LOC: RADUSWWP 10:52
PROVIDERS: ATTEND Family Medicine
DX: R42 Dizziness and giddiness (principal)
CPT/HCPCS: 93880

== ENCOUNTER → 2020-09-26 | Outpatient (CLI) | payer MEDICARE, OTHER ==
[2020-09-26 12:18] VITALS: BP 148/76; PULSE 88; RESP 18; TEMP 98.8
--- NOTE | 2020-09-26 12:33 | P.PAINPG ---
Subjective Progress Note Date: 09/26/20 This is a follow-up visit for this 75 years old female with a chronic history of severe low back pain, she is diagnosed with bilateral sacroiliitis and lumbar degenerative disc disease and she had a history of lumbar fusion surgery, status post bilateral sacroiliac joint steroid injection x2 . She did very well after her bilateral sacroiliac joint injections, however today she would like to talk about her neck. She has had neck pain for the past few months and recently had an episode in July where she fell on her face and broke her nose. She notes that her pain in her neck scan significantly worse. Pain is located in the neck with radiation up into the scalp as well as into the bilateral shoulder. Pain is described as aching and stabbing and constant throughout the day. Not much makes the pain better except maybe her Flexeril here and there. It is fairly [employer], as well as a nighttime, as best a 2 out of 10 she is able to ambulate on her own she used a cane to move around, she denies any motor or sensory deficit she denies any fever or night sweats, she denies any change in the bowel movements or urination, - Exam Physical Examinations : -Constitutiona : Cooperative , not in acute distress . -HEENT : nech : supple , no Lymphadenopathy , normal thyroid size . : eyes : no ptosis , no icterus, no photophobia . - neurologic : Cranial nerve II to XII intact , no focal neurological deffecit . -psychatric : alert , oriented X 3 , appropriate affect , intact judgment and insight . -Lymphatic : no Lymphadenopathy . - musculoskeltal : Lumber spine moter stegnth lower extremities ,thigh and legs 5/5 Right side , 5/5 Left side . tenderness over the Sacroiliac joint on the Right , and Left sides Cervical spine: No evidence of muscle atrophy, there is an outpatient of the cervical paraspinal muscles. Range of motion limited on cervical extension due to pain. Strength intact bilaterally. Reflexes intact bilaterally. No evidence of Cody sign MRI CERVICAL SPINE Satisfactory alignment of the cervical vertebra spell compression fracture. Kyphoscoliotic curvature of the cervical spine centered at the level of the fourth and fifth cervical vertebra. Loss of intervertebral disc space height at level CIV and C5 and C5-C6. No evidence of excluded or herniated disc. No cord compression. Hypertrophic changes are present at the posterior facets as his most notable at the level of the fourth and fifth cervical vertebra. Assessment and Plan Plan: Assessment and plan=1-bilateral sacroiliitis. 2-lumbar degenerative disc disease. 3-previous lumbar laminectomy and fusion surgery 4- cervicalgia - Patient good results from previous bilateral sacral iliac joint injections beginning . However now she is having axial neck pain after a recent fall which likely caused whiplash-like impact. We will schedule her for bilateral TON, C3, C4 medial branch blocks. Do not feel an epidural would be As Helpful Given That She Is Not Having Radicular Symptoms. - He also does endorse which she describes as "zaps" in her head since the fall, encouraged her to ask her primary care doctor to see a neurologist if these headaches better. PQRS Measure Charge Sheet Measure #130: Documentation of Current Meds in Medical Chart: Patient's medications documented in chart Measure #226: Tobacco Use: Screen & Cessation Intervention: Pt not a tobacco user Measure #111: Pneumonia Vaccination: Pneumococcal vaccine administered or previously received Measure #47: Advance Care Plan: Advance care planning discussed & documented, pt chose/unable to give Measure #412: Opioid Treatment Agreement: No documentation of signed opioid treatment agreement Measure #408: Opioid Therapy Follow-up Evaluation: Patient had NO f/u eval minimum every 3 months during opioid therapy Measure #317: Preventitive Care & Scrn High Bld Press & F/U: Normal blood pressure, f/u not required Measure #128: Body Mass Index (BMI) Screening & Follow-up: BMI documented ABOVE normal parameters - f/u documented Measure #131: Pain Assessment & Follow-up: Pain positive & plan documented, Follow-up scheduled Measure #431: Unhealthy Alcohol Use Preventative Care & Scrn: Patient not identified as an unhealthy alcohol user PQRS Narrative: Smoking Status Never smoker Blood Pressure 129/78 Pain Intensity [Sacrum] 1 Scale Used Numeric (1 - 10) Hx Alcohol Use (MH) No Controlled Substance Measures - Controlled Substance Measures Is patient prescribed a controlled substance at discharge?: No PQRS Measure Charge Sheet PQRS Narrative: Smoking Status Never smoker Pain Intensity [Lower Back] 5 Pain Intensity [Neck] 6 Scale Used Numeric (1 - 10) Hx Alcohol Use (MH) No Home Medications: Ambulatory Orders ALPRAZolam [Xanax] 0.25 mg PO BID PRN 03/07/16 Aspirin 81 mg PO DAILY 03/07/16 Glimepiride [Amaryl] 4 mg PO DAILY 03/07/16 Losartan/Hydrochlorothiazide [Losartan-Hctz 100-25 mg Tab] 0.5 tab PO BID 03/07/16 Omeprazole [PriLOSEC] 20 mg PO AC-BID 03/07/16 Simvastatin [Zocor] 40 mg PO HS 03/07/16 metFORMIN HCL [Glucophage] 500 mg PO BID 03/07/16 sitaGLIPtin [Januvia] 100 mg PO DAILY 03/07/16 Cholecalciferol [Vitamin D3 (25 Mcg = 1000 Iu)] 1,000 unit PO DAILY 03/09/16 Acetaminophen/Diphenhydramine [Tylenol PM 500-25mg] 1 tab PO HS 08/22/18 Cyanocobalamin (Vitamin B-12) [Vitamin B-12] 1,000 mcg PO DAILY 08/22/18 Levothyroxine Sodium [Synthroid] 150 mcg PO QAM 08/22/18 atenoloL [Atenolol] 25 mg PO DAILY PRN 08/22/18 Methocarbamol [Robaxin-750] 750 mg PO BID PRN 05/20/20 Cyclobenzaprine [Flexeril] 10 mg PO BID PRN 09/19/20 Controlled Substance Measures - Controlled Substance Measures Is patient prescribed a controlled substance at discharge?: No
== END | disposition home or self-care (01) ==
LOC: PNWHC3 11:58
PROVIDERS: ATTEND Anesthesiology
DX: M46.1 Sacroiliitis, not elsewhere classified (principal); M51.36 Other intervertebral disc degeneration, lumbar region; M54.2 Cervicalgia; Z98.1 Arthrodesis status; Z79.891 Long term (current) use of opiate analgesic; Z79.82 Long term (current) use of aspirin; Z79.899 Other long term (current) drug therapy; Z79.890 Hormone replacement therapy; Z79.84 Long term (current) use of oral hypoglycemic drugs
CPT/HCPCS: 99211

== ENCOUNTER 2020-10-02 14:00 | Emergency (ER) | payer MEDICARE, OTHER ==
[2020-10-02 14:08] VITALS: RESP 18
[2020-10-02] MEDS ORDERED: ONDANSETRON 4 MG/2 ML VIAL IVP STA (14:18)
[2020-10-02] MEDS ORDERED: KETOROLAC 15 MG/ML 1 ML VIAL IVP STA (14:18)
[2020-10-02] MEDS ORDERED: diphenhydrAMINE 50 MG/ML 1 ML VIAL IVP STA (14:18)
[2020-10-02] MEDS ORDERED: SODIUM CHLORIDE 0.9% 1,000 ML IV STA (14:18)
--- NOTE | 2020-10-02 14:20 | ED ---
General Adult HPI - General Chief complaint: Headache Stated complaint: Head Pain Time Seen by Provider: 10/02/20 14:09 Source: patient Mode of arrival: ambulatory Limitations: no limitations - History of Present Illness Initial comments: Dictation was produced using [employer] dictation software. please excuse any grammatical, word or spelling errors. This patient was cared for during a federal and state declared state of emergency secondary to Covid 19 Chief Complaint: 75-year-old female presents today with headaches History of Present Illness: 35-year-old female she presents today with headaches. Patient has been having on and off headaches for the last several weeks after she fell and broke her nose. Patient states the headache starts at the occipital area and travels upwards and around her head. It is throbbing in nature. She denies any vision changes. No numbness and paresthesias to the arms or legs. Patient denies any stiff neck. She does have chronic history of back and neck pain. She is scheduled to receive cervical spine injections by pain specialists shortly in the near future. Denies any fever, chills or night sweats. Patient has chronic left knee issues that caused her to be unsteady. The ROS documented in this emergency department record has been reviewed and confirmed by me. Those systems with pertinent positive or negative responses have been documented in the HPI. All other systems are other negative and/or noncontributory. PHYSICAL EXAM: General Impression: Alert and oriented x3, not in acute distress HEENT: Normocephalic atraumatic, extra-ocular movements intact, pupils equal and reactive to light bilaterally, mucous membranes moist. Cardiovascular: Heart regular rate and rhythm Chest: Able to complete full sentences, no retractions, no tachypnea Abdomen: abdomen soft, non-tender, non-distended, no organomegaly Musculoskeletal: Pulses present and equal in all extremities, no peripheral edema Motor: no focal deficits noted Neurological: CN II-XII grossly intact, no focal motor or sensory deficits noted Skin: Intact with no visualized rashes Psych: Normal affect and mood ED course: 75-year-old female presents with intermittent episodic headaches for the last 7 weeks. She is here in emergency department today as her headaches worse. As upon arrival are within acceptable limits. Physical examination is benign. Patient evaluate headache cocktail. Patient reevaluated after headache cocktail and observed in emergency part for approximately 2 hours with stable medical condition. She does report significant improvement. Computed tomography scan of the brain is unremarkable. Patient discharge. Advised to follow-up with her primary care physician. Patient reevaluated at approximately 3:41 PM and is well-appearing. Clinical presentation consistent with occipital neuralgia. Patient told of cholesterol changes that may help prevent future headaches. - Related Data Home Medications Medication Instructions Recorded Confirmed ALPRAZolam [Xanax] 0.25 mg PO BID PRN 03/07/16 09/26/20 Aspirin 81 mg PO DAILY 03/07/16 09/26/20 Glimepiride [Amaryl] 4 mg PO DAILY 03/07/16 09/26/20 Losartan/Hydrochlorothiazide 0.5 tab PO BID 03/07/16 09/26/20 [Losartan-Hctz 100-25 mg Tab] Omeprazole [PriLOSEC] 20 mg PO AC-BID 03/07/16 09/26/20 Simvastatin [Zocor] 40 mg PO HS 03/07/16 09/26/20 metFORMIN HCL [Glucophage] 500 mg PO BID 03/07/16 09/26/20 sitaGLIPtin [Januvia] 100 mg PO DAILY 03/07/16 09/26/20 Cholecalciferol [Vitamin D3 (25 1,000 unit PO DAILY 03/09/16 09/26/20 Mcg = 1000 Iu)] Acetaminophen/Diphenhydramine 1 tab PO HS 08/22/18 09/26/20 [Tylenol PM 500-25mg] Cyanocobalamin (Vitamin B-12) 1,000 mcg PO DAILY 08/22/18 09/26/20 [Vitamin B-12] Levothyroxine Sodium [Synthroid] 150 mcg PO QAM 08/22/18 09/26/20 atenoloL [Atenolol] 25 mg PO DAILY PRN 08/22/18 09/26/20 Methocarbamol [Robaxin-750] 750 mg PO BID PRN 05/20/20 09/26/20 Cyclobenzaprine [Flexeril] 10 mg PO BID PRN 09/19/20 09/26/20 Allergies Allergy/AdvReac Type Severity Reaction Status Date / Time niacin Allergy Rash/Hives Verified 10/02/20 14:05 adhesive tape AdvReac VERY RED Verified 10/02/20 14:05 SKIN Review of Systems ROS Statement: Those systems with pertinent positive or pertinent negative responses have been documented in the HPI. ROS Other: All systems not noted in ROS Statement are negative. Past Medical History Past Medical History: Diabetes Mellitus, GERD/Reflux, Hyperlipidemia, Hypertension, Osteoarthritis (OA), Pneumonia, Thyroid Disorder Additional Past Medical History / Comment(s): HIATAL HERNIA, decreased kidney function History of Any Multi-Drug Resistant Organisms: None Reported Past Surgical History: Cholecystectomy, Hernia Repair Additional Past Surgical History / Comment(s): BACK SURGERY X4, CATARACT WITH IMPLANTS-BILATERAL Past Anesthesia/Blood Transfusion Reactions: No Reported Reaction Past Psychological History: Anxiety Smoking Status: Never smoker Past Alcohol Use History: None Reported Past Drug Use History: None Reported - Past Family History Sister(s) Family Medical History: Cancer Additional Family Medical History / Comment(s): LIVER CANCER Brother(s) Family Medical History: Cancer General Exam Limitations: no limitations Course Vital Signs 10/02/20 14:05 Temperature 97.9 F Pulse Rate 76 Respiratory 18 Rate Blood Pressure 109/54 O2 Sat by Pulse 98 Oximetry Disposition Clinical Impression: Headache Disposition: HOME SELF-CARE Condition: Good Instructions (If sedation given, give patient instructions): Acute Headache (ED) Is patient prescribed a controlled substance at d/c from ED?: No Referrals: Shashank Guillory MD [REFERRING] - 1-2 days Time of Disposition: 15:41
--- NOTE | 2020-10-02 14:41 | CT ---
EXAMINATION TYPE: CT brain wo con DATE OF EXAM: 10/02/2020 COMPARISON: None HISTORY: persistent posterior headache post fall CT DLP: 1070.4 mGycm Automated exposure control for dose reduction was used. Images obtained of the brain without contrast. There is mild cerebral atrophy. There is no mass effect nor midline shift. There is no sign of intrac ranial hemorrhage. The calvarium is intact. There is normal aeration of the mastoid sinuses. IMPRESSION: Cerebral atrophy. No acute intracranial abnormality.
[2020-10-02 16:06] VITALS: BP 144/87; PULSE 68; TEMP 98.1
== END 2020-10-02 16:05 | disposition home or self-care (01) ==
LOC: EC 14:00
DX: R51.9 Headache, unspecified (principal); E11.9 Type 2 diabetes mellitus without complications; K21.9 Gastro-esophageal reflux disease without esophagitis; E78.5 Hyperlipidemia, unspecified; I10 Essential (primary) hypertension; M19.90 Unspecified osteoarthritis, unspecified site; E07.9 Disorder of thyroid, unspecified; F41.9 Anxiety disorder, unspecified; Z79.84 Long term (current) use of oral hypoglycemic drugs; Z79.82 Long term (current) use of aspirin; Z79.899 Other long term (current) drug therapy; Z88.1 Allergy status to other antibiotic agents; Z91.048 Other nonmedicinal substance allergy status
CPT/HCPCS: 70450; 99284; 96374; 96375 ×2; 96361; J1200; J2405; J1885

== ENCOUNTER 2020-10-14 06:05 | Day surgery (SDC) | payer MEDICARE, OTHER ==
[2020-10-13 10:27] VITALS: BMI 33.0
[2020-10-14 06:27] VITALS: TEMP 97.5
[2020-10-14 06:37] LABS: Glucose,Whole Blood 153 mg/dL (75-99)
[2020-10-14] MEDS ORDERED: ROPIVACAINE 5MG/ML 20ML VIAL ONE (07:51)
[2020-10-14] MEDS ORDERED: DEXAMETHASONE SOD PHOSPHATE 10 MG/ML 1 ML VIAL ONE (07:51)
[2020-10-14] MEDS ORDERED: fentaNYL (PF) 50 MCG/ML 2 ML AMP ONE (07:52)
[2020-10-14] MEDS ORDERED: MIDAZOLAM 2 MG/2 ML VIAL ONE (07:52)
--- NOTE | 2020-10-14 08:19 | P.PCN ---
Date of Procedure: 10/14/20 Surgeon: Rosemarie Contreras Pathology: none sent Condition: stable Disposition: PACU Description of Procedure: Name of procedure: Cervical medial branch block for C2 ,C3 ,C4 and block of the third occipital nerve bilaterally Surgeon:Rosemarie Contreras MD Anesthesia: IV moderate conscious sedation by the anesthesia Department Diagnosis: Cervical spondylosis without myelopathy and cervicogenic headache Description of procedure: The patient was seen and identified in the preoperative area. Risks, benefits, complications, and alternatives were discussed with the patient, the patient agreed to proceed with the procedure and signed the consent. IV was started. Vital signs remained stable throughout the procedure. Patient was taken to the OR and time out was completed. The patient was placed in the supine position on the procedure table. . The cervical area was prepped with chloraprep and draped in the usual sterile fashion. Critical pause was taken. Vital signs were closely monitored during the procedure. Conscious sedation was used during the procedure to decrease patients anxiety. The lateral view of fluoroscopy was used to identify the C2 , C3 and C4 trapezoid shaped cervical articular pillars and the target points were the center of the articular pillars . I used 25-gauge 3-1/2 inch [place]ke spinal needle to go through the skin after localizing it with lidocaine 1% and to contact the bone at the above-mentioned target point then the AP view of fluoroscopy was used to verify needle position at the waist of the C2 and C3 vertebral bodies laterally. For the 3rd occipital nerve the target point was at the center of the C2-C3 joint line bilaterally . after contacting bone at the target points mentioned above I injected 0.5 MLS of a solution made up of 3 ml of preservative-free ropivacaine 0.5% mixed with Dexamethasone 10 mg and half ml of the mixture was injected at each level after negative aspiration for blood and CSF. [place] were then removed intact the same procedure was repeated on the left side. COMPLICATIONS: No acute complications. COMMENTS: A copy of needle placement was saved to the C-arm at the radiology department DISPOSITION / PLANS: The patient was placed in a supine position and transferred to the recovery area in a stable condition for observation and was discharged from the recovery room after meeting discharge criteria. Home discharge instructions given to the patient by the staff. The patient was reexamined prior to discharge. The patient will be scheduled for a repeat of this injection in 2- 4 weeks.
[2020-10-14] MEDS ORDERED: IV FLUID CONTINUATION 700 ML IV ONE (08:20)
[2020-10-14 08:33] VITALS: BP 117/76; PULSE 74; RESP 20
--- NOTE | 2020-10-14 08:53 | FL ---
Fluoroscopy History: FACET BLOCK BILAT CSPINE FACET BLOCK BILAT CSPINE. 11 SEC FL, 8 IMAGES SCANNED.
== END 2020-10-14 08:49 | disposition home or self-care (01) ==
LOC: ORPAIN 06:05
PROVIDERS: ATTEND Anesthesiology
DX: M47.812 Spondylosis without myelopathy or radiculopathy, cervical region (principal); R51.9 Headache, unspecified; I10 Essential (primary) hypertension; E11.9 Type 2 diabetes mellitus without complications; E78.5 Hyperlipidemia, unspecified; E07.9 Disorder of thyroid, unspecified; M19.90 Unspecified osteoarthritis, unspecified site; F41.9 Anxiety disorder, unspecified; M54.2 Cervicalgia; K44.9 Diaphragmatic hernia without obstruction or gangrene; Z88.8 Allergy status to other drugs, medicaments and biological substances; Z79.1 Long term (current) use of non-steroidal anti-inflammatories (NSAID); Z79.899 Other long term (current) drug therapy; Z79.84 Long term (current) use of oral hypoglycemic drugs; Z79.82 Long term (current) use of aspirin; Z90.710 Acquired absence of both cervix and uterus
CPT/HCPCS: 64450; 64490; 64491; J2250; J1100; J3010; J2795

== ENCOUNTER 2020-11-25 07:49 | Day surgery (SDC) | payer MEDICARE, OTHER ==
[2020-11-23 16:18] VITALS: BMI 33.0
[2020-11-25 08:07] VITALS: RESP 16; TEMP 97.5
[2020-11-25] MEDS ORDERED: LIDOCAINE 1% (10MG/ML) FOR IV START INTRADERMA ONE (08:25)
[2020-11-25 08:28] LABS: Glucose,Whole Blood 164 mg/dL (75-99)
[2020-11-25] MEDS: LACTATED RINGERS 1,000 ML IV SCH ×2 (08:29→08:43)
[2020-11-25] MEDS ORDERED: fentaNYL (PF) 50 MCG/ML 2 ML AMP ONE (08:46)
[2020-11-25] MEDS ORDERED: methylPREDNISolone ACETATE 40 MG/ML 1 ML VIAL ONE (08:46)
[2020-11-25] MEDS ORDERED: MIDAZOLAM 2 MG/2 ML VIAL ONE (08:46)
[2020-11-25] MEDS ORDERED: ROPIVACAINE 5MG/ML 20ML VIAL ONE (08:46)
--- NOTE | 2020-11-25 09:31 | P.PCN ---
Date of Procedure: 11/25/20 Procedure(s) Performed: PREOPERATIVE DIAGNOSIS: Cervical Spondylosis with Facet Arthropathy.without myelopathy POSTOPERATIVE DIAGNOSIS: Cervical Spondylosis Facet Arthropathy. Without myelopathy. PROCEDURES: Diagnostic bilateral C2 ,. C3, C4 medial branch blocks, with fluoroscopic guidance (fluoroscopy images available in radiology department ) ( to target the facet joint at bilateral at C2-3 , C3-4 ) ANESTHESIA: moderate sedation with Versed 2 mg , and fentanyl 100 micrograms EBL: Minimal PROCEDURE INDICATION: The patient with neck pain secondary to cervical arthropathy unresponsive to more conservative treatments. PROCEDURE DESCRIPTION / TECHNIQUE: The patient was seen and identified in the preoperative area. Risks, benefits, complications, and alternatives were discussed with the patient, the patient agreed to proceed with the procedure and signed the consent. IV was started. Vital signs remained stable throughout the procedure. Patient was taken to the OR and time out was completed. The patient was placed in the supine position on the procedure table.. The cervical area was prepped and draped in the usual sterile fashion. Critical pause was taken. Vital signs were closely monitored during the procedure. Conscious sedation was used during the procedure to decrease patients anxiety. Using cross-table lateral fluoroscopy, the centroid of the trapezoid of right C2 ,C3, C4 , was identified, marked, and localized with 1% lidocaine 1 ml at each level for skin and Sub Q infiltrations . Subsequently, a 22 G 4 spinal needle was advanced guided by fluoroscopy to the centroid of the trapezoid of Right C2 ,C3, C4 . [place] tip position was confirmed at the centroid of the trapezoids of Right C2 C3 , C4 , with anteroposterior fluoroscopy. Subsequently, 2 ml of preservative-free Ropivacaine 0.5% mixed with Depo- Medrol 20 mg and half ml of the mixture was injected after negative aspiration for blood and CSF. [place] was then removed intact the same procedure was repeated at the left C2 ,C3 , C4 levels. COMPLICATIONS: No acute complication DISPOSITION / PLANS: The patient was placed in a supine position and transferred to the recovery area in a stable condition for observation and was discharged from the recovery room after meeting discharge criteria. Home discharge instructions given to the patient by the staff. The patient was reexamined prior to discharge. The patient will schedule a follow up in the clinic in 2-4 weeks.
[2020-11-25] MEDS ORDERED: IV FLUID CONTINUATION 1,000 ML IV ONE (09:34)
[2020-11-25 09:53] VITALS: BP 123/76; PULSE 79
--- NOTE | 2020-11-25 10:10 | FL ---
EXAMINATION TYPE: FL guided pain mgmt statistic DATE OF EXAM: 11/25/2020 CLINICAL HISTORY: Neck pain. TECHNIQUE: Fluoroscopy. COMPARISON: None. FINDINGS: Fluoroscopic guidance was provided during pain relief procedure performed by Dr. Lin . A total of 40 seconds of fluoroscopic time was utilized during the procedure and 4 spot images are acquired. Images acquired shows needle localization at several levels in the cervical spine. IMPRESSION: As Above.
== END 2020-11-25 10:07 | disposition home or self-care (01) ==
LOC: ORPAIN 07:49
PROVIDERS: ATTEND Specialist
DX: M47.812 Spondylosis without myelopathy or radiculopathy, cervical region (principal); E11.9 Type 2 diabetes mellitus without complications; I10 Essential (primary) hypertension; Z79.82 Long term (current) use of aspirin; Z91.048 Other nonmedicinal substance allergy status; Z91.09 Other allergy status, other than to drugs and biological substances
CPT/HCPCS: 64490; 64491; J2250; J1030; J3010; J2795; 99152; 99153

== ENCOUNTER → 2020-12-31 | Outpatient (CLI) | payer MEDICARE, OTHER ==
[2020-12-31 09:58] LABS: HCT 36.1 % (34.0-46.0); HGB 12.1 gm/dL (11.4-16.0); MCH 30.6 pg (25.0-35.0); MCHC 33.4 g/dL (31.0-37.0); MCV 91.6 fL (80.0-100.0); Mean Platelet Volume 6.9; Platelet Count 315 k/uL (150-450); RBC 3.94 m/uL (3.80-5.40); RDW 13.8 % (11.5-15.5); WBC 9.7 k/uL (3.8-10.6)
[2020-12-31 10:07] LABS: ALT 25 U/L (4-34); AST 32 U/L (14-36); African American GFR (CKD) 57 (>60 ml/min/1.73 sqM); Albumin 4.5 g/dL (3.5-5.0); Albumin/Globulin Ratio 1.6; Alkaline Phosphatase 80 U/L (38-126); Anion Gap 13 mmol/L; Blood Urea Nitrogen 23 mg/dL (7-17); Calcium 9.9 mg/dL (8.4-10.2); Carbon Dioxide 24 mmol/L (22-30); Chloride 100 mmol/L (98-107); Globulin 2.8 g/dL; Glucose 174 mg/dL (74-99); Magnesium 1.4 mg/dL (1.6-2.3); Non-African American GFR(CKD) 49 (>60 ml/min/1.73 sqM); Potassium 4.5 mmol/L (3.5-5.1); Sodium 137 mmol/L (137-145); Total Bilirubin 0.6 mg/dL (0.2-1.3); Total Protein 7.3 g/dL (6.3-8.2)
[2020-12-31 10:24] LABS: T4, Free (Free Thyroxine) 1.29 ng/dL (0.78-2.19)
== END | disposition home or self-care (01) ==
LOC: LABMAIN 09:12
PROVIDERS: ATTEND Internal Medicine Interventional Cardiology
DX: I47.2 Ventricular tachycardia (principal)
CPT/HCPCS: 36415; 80053; 83735; 84439; 84443; 84481; 85027

== ENCOUNTER 2021-01-31 10:59 | Emergency (ER) | payer MEDICARE, OTHER ==
[2021-01-31 14:39] LABS: Glucose,Whole Blood 110 mg/dL (75-99)
--- NOTE | 2021-01-31 14:56 | XR ---
EXAMINATION TYPE: XR foot complete RT DATE OF EXAM: 01/31/2021 CLINICAL HISTORY: pain TECHNIQUE: Frontal, lateral and oblique images of the right foot are obtained. COMPARISON: None. FINDINGS: There is no acute fracture/dislocation evident. Degenerative joint space narrowing involvi ng the midfoot as well as the first and second metatarsal phalangeal joints. Hallux valgus deformity noted at the great toe. Mild soft tissue swelling about the great toe. IMPRESSION: There is no acute fracture or dislocation. ICD 10 NO FRACTURE, INITIAL EVALUATION
[2021-01-31 15:29] LABS: Basophils % (A) 0 %; Eosinophils # (A) 0.2 k/uL (0-0.7); Eosinophils % (A) 2 %; HCT 36.1 % (34.0-46.0); HGB 11.9 gm/dL (11.4-16.0); Lymphocytes # (A) 3.3 k/uL (1.0-4.8); Lymphocytes % (A) 29 %; MCH 30.5 pg (25.0-35.0); MCHC 32.9 g/dL (31.0-37.0); MCV 92.6 fL (80.0-100.0); Mean Platelet Volume 6.8; Monocytes # (A) 0.6 k/uL (0-1.0); Monocytes % (A) 6 %; Neutrophils # (A) 6.8 k/uL (1.3-7.7); Neutrophils % (A) 61 %; Platelet Count 384 k/uL (150-450); RDW 13.5 % (11.5-15.5); WBC 11.2 k/uL (3.8-10.6)
[2021-01-31 15:41] LABS: Appearance,Urine Clear (Clear); Bilirubin,Urine Negative (Negative); Blood,Urine Negative (Negative); Color,Urine Yellow; Glucose,Urine (UA) Negative (Negative); Ketones,Urine Negative (Negative); Leukocyte Esterase,Urine Small (Negative); Mucus,Urine Rare /hpf; Nitrite,Urine Negative (Negative); Protein,Urine Negative (Negative); RBC,Urine 1 /hpf (0-5); Specific Gravity,Urine 1.022 (1.001-1.035); Squamous Epithelial Cell,Urine 2 /hpf (0-4); Urobilinogen,Urine <2.0 mg/dL (<2.0); WBC,Urine 2 /hpf (0-5)
[2021-01-31 15:52] LABS: Albumin 4.4 g/dL (3.5-5.0); Calcium 9.2 mg/dL (8.4-10.2); Potassium 4.4 mmol/L (3.5-5.1); Total Bilirubin 0.8 mg/dL (0.2-1.3); Total Protein 7.4 g/dL (6.3-8.2); Uric Acid 7.1 mg/dL (3.7-7.4)
[2021-01-31] MEDS ORDERED: ACETAMINOPHEN TAB 500 MG TAB PO STA (16:35)
--- NOTE | 2021-01-31 16:37 | ED ---
Extremity Problem HPI - General Chief complaint: Extremity Problem,Nontraumatic Stated complaint: swollen foot Time Seen by Provider: 01/31/21 15:36 Source: patient, RN notes reviewed Mode of arrival: wheelchair Limitations: no limitations - History of Present Illness Initial comments: Patient is a 75-year-old female that presents emergency room with right foot pain. She notes that she went to the emergency room [place] in a tested for DVT and other vascular issues which are all negative. She notes that her right foot is red and swollen and tender. She says she can emergency room to get reevaluated. She denied any other complaints or issues. She denied any chest pain shortness breath headache nausea vomiting diarrhea constipation fever fatigue chills. - Related Data Home Medications Medication Instructions Recorded Confirmed ALPRAZolam [Xanax] 0.25 mg PO HS 03/07/16 12/08/20 Aspirin 81 mg PO DAILY 03/07/16 12/08/20 Glimepiride [Amaryl] 4 mg PO BID 03/07/16 12/08/20 Losartan/Hydrochlorothiazide 0.5 tab PO BID 03/07/16 12/08/20 [Losartan-Hctz 100-25 mg Tab] Omeprazole [PriLOSEC] 20 mg PO AC-BID 03/07/16 12/08/20 Simvastatin [Zocor] 40 mg PO HS 03/07/16 12/08/20 metFORMIN HCL [Glucophage] 500 mg PO BID 03/07/16 12/08/20 sitaGLIPtin [Januvia] 100 mg PO DAILY 03/07/16 12/08/20 Cholecalciferol [Vitamin D3 (25 1,000 unit PO DAILY 03/09/16 12/08/20 Mcg = 1000 Iu)] Acetaminophen/Diphenhydramine 1 tab PO HS 08/22/18 12/08/20 [Tylenol PM 500-25mg] Cyanocobalamin (Vitamin B-12) 1,000 mcg PO DAILY 08/22/18 12/08/20 [Vitamin B-12] Levothyroxine Sodium [Synthroid] 150 mcg PO QAM 08/22/18 12/08/20 atenoloL [Atenolol] 25 mg PO DAILY PRN 08/22/18 12/08/20 Ascorbic Acid [Vitamin C] 270 mg PO DAILY 11/23/20 12/08/20 Escitalopram [Lexapro] 10 mg PO DAILY 11/23/20 12/08/20 Zinc 15 mg PO DAILY 11/23/20 12/08/20 Previous Rx's Medication Instructions Recorded Cephalexin [Keflex] 500 mg PO Q6HR #40 cap 01/31/21 Allergies Allergy/AdvReac Type Severity Reaction Status Date / Time niacin Allergy Rash/Hives Verified 01/31/21 12:26 adhesive tape AdvReac VERY RED Verified 01/31/21 12:26 SKIN Review of Systems ROS Statement: Those systems with pertinent positive or pertinent negative responses have been documented in the HPI. ROS Other: All systems not noted in ROS Statement are negative. Past Medical History Past Medical History: Diabetes Mellitus, GERD/Reflux, Hyperlipidemia, Hypertension, Osteoarthritis (OA), Pneumonia, Thyroid Disorder Additional Past Medical History / Comment(s): HIATAL HERNIA, decreased kidney function History of Any Multi-Drug Resistant Organisms: None Reported Past Surgical History: Cholecystectomy, Hernia Repair Additional Past Surgical History / Comment(s): BACK SURGERY X4, CATARACT WITH IMPLANTS-BILATERAL Past Anesthesia/Blood Transfusion Reactions: No Reported Reaction Past Psychological History: Anxiety Smoking Status: Never smoker Past Alcohol Use History: None Reported Past Drug Use History: None Reported - Past Family History Sister(s) Family Medical History: Cancer Additional Family Medical History / Comment(s): LIVER CANCER Brother(s) Family Medical History: Cancer General Exam Limitations: no limitations General appearance: alert, in no apparent distress Head exam: Present: atraumatic, normocephalic, normal inspection ENT exam: Present: normal exam, mucous membranes moist Neck exam: Present: normal inspection. Absent: tenderness, meningismus, lymphadenopathy Respiratory exam: Present: normal lung sounds bilaterally. Absent: respiratory distress, wheezes, rales, rhonchi, stridor Cardiovascular Exam: Present: regular rate, normal rhythm, normal heart sounds. Absent: systolic murmur, diastolic murmur, rubs, gallop, clicks GI/Abdominal exam: Present: soft, normal bowel sounds. Absent: distended, tenderness, guarding, rebound, rigid Extremities exam: Present: normal inspection, full ROM, tenderness (Right footwear stitcher over the distal portion.), normal capillary refill. Absent: pedal edema, joint swelling, calf tenderness Neurological exam: Present: alert, oriented X3, CN II-XII intact Psychiatric exam: Present: normal affect, normal mood Skin exam: Present: warm, dry, intact, normal color, erythema (The right foot close to the great toe.). Absent: rash Course Vital Signs 01/31/21 12:22 Temperature 97.6 F Pulse Rate 67 Respiratory 20 Rate Blood Pressure 113/70 O2 Sat by Pulse 98 Oximetry Medical Decision Making - Medical Decision Making 75-year-old female complaining of right foot pain. Labs, right foot x-ray ordered. 1000 mg of Tylenol ordered for pain. X-ray was negative for any acute fractures dislocations. Labs unremarkable. Case discussed with Dr. Guo, patient can discharge home. - Lab Data Result diagrams: 01/31/21 15:05 01/31/21 15:05 Lab Results 01/31/21 01/31/21 01/31/21 Range/Units 14:38 15:05 15:05 WBC 11.2 H (3.8-10.6) k/uL RBC 3.90 (3.80-5.40) m/uL Hgb 11.9 (11.4-16.0) gm/dL Hct 36.1 (34.0-46.0) % MCV 92.6 (80.0-100.0) fL MCH 30.5 (25.0-35.0) pg MCHC 32.9 (31.0-37.0) g/dL RDW 13.5 (11.5-15.5) % Plt Count 384 (150-450) k/uL MPV 6.8 Neutrophils % 61 % Lymphocytes % 29 % Monocytes % 6 % Eosinophils % 2 % Basophils % 0 % Neutrophils # 6.8 (1.3-7.7) k/uL Lymphocytes # 3.3 (1.0-4.8) k/uL Monocytes # 0.6 (0-1.0) k/uL Eosinophils # 0.2 (0-0.7) k/uL Basophils # 0.0 (0-0.2) k/uL Sodium 139 (137-145) mmol/L Potassium 4.4 (3.5-5.1) mmol/L Chloride 101 (98-107) mmol/L Carbon Dioxide 30 (22-30) mmol/L Anion Gap 8 mmol/L BUN 24 H (7-17) mg/dL Creatinine 1.05 H (0.52-1.04) mg/dL Est GFR (CKD-EPI)AfAm 60 (>60 ml/min/1.73 sqM) Est GFR (CKD-EPI)NonAf 52 (>60 ml/min/1.73 sqM) Glucose 106 H (74-99) mg/dL POC Glucose (mg/dL) 110 H (75-99) mg/dL POC Glu Electrical Checkout Mechanic ID Dee Dee Truong Uric Acid 7.1 (3.7-7.4) mg/dL Calcium 9.2 (8.4-10.2) mg/dL Total Bilirubin 0.8 (0.2-1.3) mg/dL AST 19 (14-36) U/L ALT 12 (4-34) U/L Alkaline Phosphatase 89 (38-126) U/L Total Protein 7.4 (6.3-8.2) g/dL Albumin 4.4 (3.5-5.0) g/dL Amylase 49 (30-110) U/L Lipase 72 (23-300) U/L Urine Color Urine Appearance (Clear) Urine pH (5.0-8.0) Ur Specific [place] (1.001-1.035) Urine Protein (Negative) Urine Glucose (UA) (Negative) Urine Ketones (Negative) Urine Blood (Negative) Urine Nitrite (Negative) Urine Bilirubin (Negative) Urine Urobilinogen (<2.0) mg/dL Ur Leukocyte Esterase (Negative) Urine RBC (0-5) /hpf Urine WBC (0-5) /hpf Ur Squamous Epith Cells (0-4) /hpf Urine Mucus (None) /hpf 01/31/21 Range/Units 15:10 WBC (3.8-10.6) k/uL RBC (3.80-5.40) m/uL Hgb (11.4-16.0) gm/dL Hct (34.0-46.0) % MCV (80.0-100.0) fL MCH (25.0-35.0) pg MCHC (31.0-37.0) g/dL RDW (11.5-15.5) % Plt Count (150-450) k/uL MPV Neutrophils % % Lymphocytes % % Monocytes % % Eosinophils % % Basophils % % Neutrophils # (1.3-7.7) k/uL Lymphocytes # (1.0-4.8) k/uL Monocytes # (0-1.0) k/uL Eosinophils # (0-0.7) k/uL Basophils # (0-0.2) k/uL Sodium (137-145) mmol/L Potassium (3.5-5.1) mmol/L Chloride (98-107) mmol/L Carbon Dioxide (22-30) mmol/L Anion Gap mmol/L BUN (7-17) mg/dL Creatinine (0.52-1.04) mg/dL Est GFR (CKD-EPI)AfAm (>60 ml/min/1.73 sqM) Est GFR (CKD-EPI)NonAf (>60 ml/min/1.73 sqM) Glucose (74-99) mg/dL POC Glucose (mg/dL) (75-99) mg/dL POC Glu Electrical Checkout Mechanic ID Uric Acid (3.7-7.4) mg/dL Calcium (8.4-10.2) mg/dL Total Bilirubin (0.2-1.3) mg/dL AST (14-36) U/L ALT (4-34) U/L Alkaline Phosphatase (38-126) U/L Total Protein (6.3-8.2) g/dL Albumin (3.5-5.0) g/dL Amylase (30-110) U/L Lipase (23-300) U/L Urine Color Yellow Urine Appearance Clear (Clear) Urine pH 5.0 (5.0-8.0) Ur Specific [place] 1.022 (1.001-1.035) Urine Protein Negative (Negative) Urine Glucose (UA) Negative (Negative) Urine Ketones Negative (Negative) Urine Blood Negative (Negative) Urine Nitrite Negative (Negative) Urine Bilirubin Negative (Negative) Urine Urobilinogen <2.0 (<2.0) mg/dL Ur Leukocyte Esterase Small H (Negative) Urine RBC 1 (0-5) /hpf Urine WBC 2 (0-5) /hpf Ur Squamous Epith Cells 2 (0-4) /hpf Urine Mucus Rare H (None) /hpf - Radiology Data Radiology results: report reviewed, image reviewed Right foot x-ray: No acute fractures or dislocations. Disposition Clinical Impression: Cellulitis of right foot Disposition: HOME SELF-CARE Condition: Stable Instructions (If sedation given, give patient instructions): Cellulitis (ED) Additional Instructions: Please return to the Emergency Department if symptoms worsen or any other concerns. Please follow up with primary care in 3-5 days. Take antibiotics as prescribed until complete. Can also take [id number] anti-inflammatories as needed for symptomatically control. Prescriptions: Cephalexin [Keflex] 500 mg PO Q6HR #40 cap Is patient prescribed a controlled substance at d/c from ED?: No Referrals: Evaristo Guillory DO [Primary Care Provider] - 1-2 days Time of Disposition: 16:39
[2021-01-31 16:48] VITALS: BP 124/79; PULSE 62; RESP 18; TEMP 98
== END 2021-01-31 17:00 | disposition home or self-care (01) ==
LOC: EC 10:59
DX: L03.115 Cellulitis of right lower limb (principal); E11.9 Type 2 diabetes mellitus without complications; I10 Essential (primary) hypertension; M19.90 Unspecified osteoarthritis, unspecified site; E07.9 Disorder of thyroid, unspecified; K21.9 Gastro-esophageal reflux disease without esophagitis; E78.5 Hyperlipidemia, unspecified; F41.9 Anxiety disorder, unspecified; Z79.899 Other long term (current) drug therapy; Z79.82 Long term (current) use of aspirin; Z79.84 Long term (current) use of oral hypoglycemic drugs; Z79.890 Hormone replacement therapy; Z91.048 Other nonmedicinal substance allergy status; Z88.8 Allergy status to other drugs, medicaments and biological substances
CPT/HCPCS: 36415; 80053; 81001; 82150; 83690; 84550; 85025; 99283

== ENCOUNTER 2021-03-19 17:19 | Emergency (ER) | payer MEDICARE, OTHER ==
[2021-03-19 17:24] VITALS: TEMP 97.6
--- NOTE | 2021-03-19 17:46 | ED ---
General Adult HPI - General Chief complaint: Shortness of Breath Stated complaint: SOB, Chest Pain Time Seen by Provider: 03/19/21 17:26 Source: patient Mode of arrival: wheelchair Limitations: physical limitation - History of Present Illness Initial comments: Dictation was produced using Flit dictation software. please excuse any grammatical, word or spelling errors. Chief Complaint: 76-year-old female with past medical history diabetes, hypertension dyslipidemia presents emergency department for shortness of breath. History of Present Illness: Patient is 76-year-old. She presents to the emergency department for shortness of breath. Patient states her symptoms have been ongoing for the last 4 days. Patient is diagnosed with A. fib. She takes xarelto. She reports that her symptoms are more noticeable with position ch anges and best when lying still in a reclined position. She does not feel like her symptoms are exacerbated with exertion. She denies any chest pain. No nausea vomiting. No cough no sore throat or runny nose. The ROS documented in this emergency department record has been reviewed and confirmed by me. Those systems with pertinent positive or negative responses have been documented in the HPI. All other systems are other negative and/or noncontributory. PHYSICAL EXAM: General Impression: Alert and oriented x3, not in acute distress HEENT: Normocephalic atraumatic, extra-ocular movements intact, pupils equal and reactive to light bilaterally, mucous membranes moist. Cardiovascular: Heart regular rate and rhythm Chest: Able to complete full sentences, no retractions, no tachypnea, lungs clear to auscultation bilaterally Abdomen: abdomen soft, non-tender, non-distended, no organomegaly Musculoskeletal: Pulses present and equal in all extremities, no peripheral edema Motor: no focal deficits noted Neurological: CN II-XII grossly intact, no focal motor or sensory deficits noted Skin: Intact with no visualized rashes Psych: Normal affect and mood ED course: 76-year-old feel presents with dyspnea. Signs upon arrival are within acceptable limits. Physical examination is benign. Patient does not appear to be dyspneic at this time. Patient is not hypoxic. EKGs benign Return evaluation obtained. CBC, cardiac panel, d-dimer is negative. Metabolic panel is unremarkable. Correlation negative per chest x-ray is nonacute. Patient reevaluated at bedside at 7:30 PM on be in stable medical condition. Not showing any signs of distress. Patient was notified of her lab results. Disposition options were discussed. Patient feels well. At this point is not obvious what is causing patient's symptoms however she is well-appearing and does not have any high-risk features. 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 EKG interpretation: Ventricular rate 108, sinus tachycardia, [place] interval 130, QRS 72, QTc 444. No [place] prolongation, no QTC prolongation, no ST or T-wave changes noted. EKG compared to 08/22/2018 showing no changes. Overall, this EKG is unremarkable - Related Data Home Medications Medication Instructions Recorded Confirmed ALPRAZolam [Xanax] 0.25 mg PO HS 03/07/16 03/19/21 Glimepiride [Amaryl] 4 mg PO BID 03/07/16 03/19/21 Omeprazole [PriLOSEC] 20 mg PO AC-BID 03/07/16 03/19/21 Simvastatin [Zocor] 40 mg PO HS 03/07/16 03/19/21 metFORMIN HCL [Glucophage] 500 mg PO BID 03/07/16 03/19/21 Cholecalciferol [Vitamin D3 (25 1,000 unit PO DAILY 03/09/16 03/19/21 Mcg = 1000 Iu)] Cyanocobalamin (Vitamin B-12) 1,000 mcg PO DAILY 08/22/18 03/19/21 [Vitamin B-12] Levothyroxine Sodium [Synthroid] 150 mcg PO DAILY 08/22/18 03/19/21 atenoloL [Atenolol] 25 mg PO BID 08/22/18 03/19/21 Escitalopram [Lexapro] 10 mg PO DAILY 11/23/20 03/19/21 Zinc 50 mg PO DAILY 11/23/20 03/19/21 ALPRAZolam [Xanax] 0.25 mg PO DAILY PRN 03/19/21 03/19/21 Ascorbic Acid [Vitamin C] 1,000 mg PO DAILY 03/19/21 03/19/21 Losartan-Hctz(Unknown Strength 1 tab PO HS 03/19/21 03/19/21 Rivaroxaban [Xarelto] 20 mg PO W/SUPPER 03/19/21 03/19/21 Allergies Allergy/AdvReac Type Severity Reaction Status Date / Time niacin Allergy Rash/Hives Verified 03/19/21 18:42 adhesive tape AdvReac VERY RED Verified 03/19/21 18:42 SKIN Review of Systems ROS Statement: Those systems with pertinent positive or pertinent negative responses have been documented in the HPI. ROS Other: All systems not noted in ROS Statement are negative. Past Medical History Past Medical History: Atrial Fibrillation, Diabetes Mellitus, GERD/Reflux, Hyperlipidemia, Hypertension, Osteoarthritis (OA), Pneumonia, Thyroid Disorder Additional Past Medical History / Comment(s): HIATAL HERNIA, decreased kidney function History of Any Multi-Drug Resistant Organisms: None Reported Past Surgical History: Cholecystectomy, Hernia Repair Additional Past Surgical History / Comment(s): BACK SURGERY X4, CATARACT WITH IMPLANTS-BILATERAL Past Anesthesia/Blood Transfusion Reactions: No Reported Reaction Past Psychological History: Anxiety Smoking Status: Never smoker Past Alcohol Use History: None Reported Past Drug Use History: None Reported - Past Family History Sister(s) Family Medical History: Cancer Additional Family Medical History / Comment(s): LIVER CANCER Brother(s) Family Medical History: Cancer General Exam Limitations: physical limitation Course Vital Signs 03/19/21 03/19/21 17:20 18:22 Temperature 97.6 F Pulse Rate 97 99 Respiratory 18 20 Rate Blood Pressure 122/73 126/77 O2 Sat by Pulse 98 97 Oximetry Medical Decision Making - Lab Data Result diagrams: 03/19/21 18:24 03/19/21 18:24 Lab Results 03/19/21 03/19/21 03/19/21 Range/Units 18:24 18:24 18:24 WBC 10.8 H (3.8-10.6) k/uL RBC 3.95 (3.80-5.40) m/uL Hgb 12.2 (11.4-16.0) gm/dL Hct 36.1 (34.0-46.0) % MCV 91.4 (80.0-100.0) fL MCH 30.9 (25.0-35.0) pg MCHC 33.8 (31.0-37.0) g/dL RDW 12.7 (11.5-15.5) % Plt Count 391 (150-450) k/uL MPV 6.7 Neutrophils % 63 % Lymphocytes % 28 % Monocytes % 6 % Eosinophils % 1 % Basophils % 1 % Neutrophils # 6.8 (1.3-7.7) k/uL Lymphocytes # 3.0 (1.0-4.8) k/uL Monocytes # 0.7 (0-1.0) k/uL Eosinophils # 0.1 (0-0.7) k/uL Basophils # 0.1 (0-0.2) k/uL PT 10.7 (9.0-12.0) sec INR 1.0 (<1.2) APTT 23.1 (22.0-30.0) sec D-Dimer 0.46 (<0.60) mg/L FEU Sodium 135 L (137-145) mmol/L Potassium 4.5 (3.5-5.1) mmol/L Chloride 99 (98-107) mmol/L Carbon Dioxide 25 (22-30) mmol/L Anion Gap 11 mmol/L BUN 23 H (7-17) mg/dL Creatinine 0.84 (0.52-1.04) mg/dL Est GFR (CKD-EPI)AfAm 78 (>60 ml/min/1.73 sqM) Est GFR (CKD-EPI)NonAf 68 (>60 ml/min/1.73 sqM) Glucose 227 H (74-99) mg/dL Calcium 9.7 (8.4-10.2) mg/dL Troponin I (0.000-0.034) ng/mL NT-Pro-B Natriuret Pep pg/mL Coronavirus (PCR) (Not Detectd) 03/19/21 03/19/21 03/19/21 Range/Units 18:24 18:24 18:25 WBC (3.8-10.6) k/uL RBC (3.80-5.40) m/uL Hgb (11.4-16.0) gm/dL Hct (34.0-46.0) % MCV (80.0-100.0) fL MCH (25.0-35.0) pg MCHC (31.0-37.0) g/dL RDW (11.5-15.5) % Plt Count (150-450) k/uL MPV Neutrophils % % Lymphocytes % % Monocytes % % Eosinophils % % Basophils % % Neutrophils # (1.3-7.7) k/uL Lymphocytes # (1.0-4.8) k/uL Monocytes # (0-1.0) k/uL Eosinophils # (0-0.7) k/uL Basophils # (0-0.2) k/uL PT (9.0-12.0) sec INR (<1.2) APTT (22.0-30.0) sec D-Dimer (<0.60) mg/L FEU Sodium (137-145) mmol/L Potassium (3.5-5.1) mmol/L Chloride (98-107) mmol/L Carbon Dioxide (22-30) mmol/L Anion Gap mmol/L BUN (7-17) mg/dL Creatinine (0.52-1.04) mg/dL Est GFR (CKD-EPI)AfAm (>60 ml/min/1.73 sqM) Est GFR (CKD-EPI)NonAf (>60 ml/min/1.73 sqM) Glucose (74-99) mg/dL Calcium (8.4-10.2) mg/dL Troponin I <0.012 (0.000-0.034) ng/mL NT-Pro-B Natriuret Pep 57 pg/mL Coronavirus (PCR) Not Detected (Not Detectd) Disposition Clinical Impression: Dyspnea Disposition: HOME SELF-CARE Condition: Good Instructions (If sedation given, give patient instructions): Dyspnea (ED) Is patient prescribed a controlled substance at d/c from ED?: No Referrals: Evaristo Guillory DO [Primary Care Provider] - 1-2 days Calli Cutler MD [STAFF PHYSICIAN] - 1-2 days Time of Disposition: 19:42
[2021-03-19 18:23] VITALS: BP 126/77; PULSE 99; RESP 20
--- NOTE | 2021-03-19 18:28 | XR ---
EXAMINATION TYPE: XR chest 2V DATE OF EXAM: 03/19/2021 COMPARISON: NONE HISTORY: Shortness of breath. TECHNIQUE: Frontal and lateral views of the chest are obtained. FINDINGS: There is no focal air space opacity, pleural effusion, or pneumothorax seen. The cardiac silhouette size is within normal limits. The osseous structures are intact. IMPRESSION: No acute cardiopulmonary process.
[2021-03-19 18:46] LABS: Basophils # (A) 0.1 k/uL (0-0.2); Basophils % (A) 1 %; Eosinophils # (A) 0.1 k/uL (0-0.7); Eosinophils % (A) 1 %; HCT 36.1 % (34.0-46.0); HGB 12.2 gm/dL (11.4-16.0); Lymphocytes % (A) 28 %; MCH 30.9 pg (25.0-35.0); MCHC 33.8 g/dL (31.0-37.0); MCV 91.4 fL (80.0-100.0); Mean Platelet Volume 6.7; Monocytes # (A) 0.7 k/uL (0-1.0); Monocytes % (A) 6 %; Neutrophils # (A) 6.8 k/uL (1.3-7.7); Neutrophils % (A) 63 %; Platelet Count 391 k/uL (150-450); RBC 3.95 m/uL (3.80-5.40); RDW 12.7 % (11.5-15.5); WBC 10.8 k/uL (3.8-10.6)
[2021-03-19 18:59] LABS: D-Dimer 0.46 mg/L FEU (<0.60); Partial Thromboplastin Time 23.1 sec (22.0-30.0); Prothrombin Time 10.7 sec (9.0-12.0)
[2021-03-19 19:12] LABS: Calcium 9.7 mg/dL (8.4-10.2)
[2021-03-19 19:14] LABS: Potassium 4.5 mmol/L (3.5-5.1)
== END 2021-03-19 20:04 | disposition home or self-care (01) ==
LOC: EC 17:19
DX: R06.02 Shortness of breath (principal); R07.9 Chest pain, unspecified; I48.91 Unspecified atrial fibrillation; E11.36 Type 2 diabetes mellitus with diabetic cataract; E78.5 Hyperlipidemia, unspecified; I10 Essential (primary) hypertension; F41.9 Anxiety disorder, unspecified; K21.9 Gastro-esophageal reflux disease without esophagitis; M19.90 Unspecified osteoarthritis, unspecified site; Z79.84 Long term (current) use of oral hypoglycemic drugs; Z79.899 Other long term (current) drug therapy; Z20.822 Contact with and (suspected) exposure to COVID-19
CPT/HCPCS: 36415; 71046; 80048; 83880; 84484; 85025; 85379; 85610; 85730; 87635; 99285

== ENCOUNTER → 2021-03-29 | Outpatient (CLI) | payer MEDICARE, OTHER ==
[2021-03-29 12:45] VITALS: BP 120/69; PULSE 77; RESP 18; TEMP 98.3
--- NOTE | 2021-03-29 12:59 | P.PN ---
Subjective Progress Note Date: 03/29/21 This is a 76-year-old lady with history of axial neck pain more on the right side than the left side. The patient had more than 80% of pain relief of her pain after diagnostic cervical medial branch block for levels C2, C3, C4 and third occipital nerve. Her pain today is 1 out of 10 on a scale from 0-10. The patient noticed that her pain gets worse with any stress. The patient is having irregular heartbeat at this time with near fainting and she is following up with Dr. Go about this new problem. Patient denies new-onset weakness, bowel/bladder incontinence, or any other signs or symptoms of cauda equina syndrome. There are no signs of acute intoxication, and no indications of medication diversion or overuse. In addition to above, 13-point review of systems is also negative for chest pain, shortness of breath, changes in vision, changes in hearing, new onset weakness, abdominal pain, diarrhea, extreme fatigue, malaise, fever, skin changes, homicidal or suicidal ideation, or bowel or bladder incontinence. Vital Signs: Reviewed in EMR Gen: AAOx3, NAD HEENT: PERRLA,hearing grossly normal Pulm: resp unlabored Neck: supple, trachea midline Neuro exam of the upper extremities: Normal muscle strength bilaterally Straight leg raising test: Keshawn's test: Range of motion of the lumbar spine: Facet loading test: Tenderness in the paravertebral musculature: Neuro: CN II-XII grossly intact, Imaging: Reviewed in EMR/chart Assessment: Cervical spondylosis without myelopathy Cervicogenic headache Plan: 1. Explanation: Opioid and psychological risk scores were reviewed. Diagnoses, prognoses, and multiple treatment options including but not limited to physical therapy, interventional therapies, adjuvant medical therapies, narcotic medication therapies, and surgery were discussed with the patient and all questions were answered to the patient's satisfaction. 2. Opioid agreement: Signed with the patient and the patient is warned not to use opioids while driving or before driving and not to combine opioids with benzodiazepines or alcohol. 3. Counseling: The patient was counseled extensively on SMOKING CESSATION, BODY MASS INDEX, EXERCISE. Specifically, the patient was instructed regarding the importance of smoking cessation, obesity, and exercise in the context of both chronic pain and overall health. 4. Procedures: Since the patient's pain is very mild at this point we can postpone doing RFA until her pain starts to get worse . I will start by doing the right side first for levels C2, C3, C4 and third occipital nerve. The patient has to hold her Xarelto for 72 hours before the procedure. 5. Consultations: None 6. Investigations: None 7. Medications: None 8. Disposition: Return to clinic as needed 9. Maps were reviewed and were appropriate. Objective - Vital Signs Vital signs: Vital Signs Temp 98.3 F 03/29/21 12:41 Pulse 77 03/29/21 12:41 Resp 18 03/29/21 12:41 BP 120/69 03/29/21 12:41 Pulse Ox 94 L 03/29/21 12:41
== END ==
LOC: PNWHC3 12:25
PROVIDERS: ATTEND Anesthesiology
DX: M47.812 Spondylosis without myelopathy or radiculopathy, cervical region (principal); R51.9 Headache, unspecified; Z88.8 Allergy status to other drugs, medicaments and biological substances; Z91.048 Other nonmedicinal substance allergy status
CPT/HCPCS: 99211

== ENCOUNTER → 2021-03-29 | Outpatient (CLI) | payer MEDICARE, OTHER | END | disposition home or self-care (01) | LOC: LABWHC1 13:00 | PROVIDERS: ATTEND Nurse Practitioner Adult Health | DX: I47.2 Ventricular tachycardia (principal) | CPT/HCPCS: 36415; 83735 ==

== ENCOUNTER 2021-04-07 06:21 | Day surgery (SDC) | payer MEDICARE, OTHER ==
[2021-04-05 11:33] VITALS: BMI 32.9
[~2021-04-07 06:21] MED LIST changes: +ALPRAZolam 0.25 MG TAB PO PRN; +ALPRAZolam 0.5 MG TAB PO PRN; +ASPIRIN 325 MG TAB PO STA; +ATORVASTATIN 80 MG TAB PO STA; -LACTATED RINGERS 1,000 ML IV SCH; +NITROGLYCERIN SL TABS 0.4 MG TAB SUBLINGUAL PRN; +SODIUM CHLORIDE 0.9% 1,000 ML in EMPTY BAG 1 BAG IV ONE
[2021-04-07] MEDS ORDERED: SODIUM CHLORIDE 0.9% 1,000 ML IV ONE (06:51)
[2021-04-07 07:11] LABS: Glucose,Whole Blood 191 mg/dL (75-99)
[2021-04-07 07:16] VITALS: RESP 16; TEMP 98.4
[2021-04-07] MEDS ORDERED: LIDOCAINE 1% INJ 10MG/ML (20 ML MDV) ONE (07:30)
[2021-04-07] MEDS ORDERED: VERAPAMIL 2.5 MG/ML 2 ML AMP ONE (07:30)
[2021-04-07] MEDS ORDERED: fentaNYL (PF) 50 MCG/ML 2 ML AMP ONE (07:30)
[2021-04-07] MEDS ORDERED: HEPARIN SODIUM 1,000 UN/ML (10ML VL) ONE (07:33)
[2021-04-07] MEDS ORDERED: fentaNYL (PF) 50 MCG/ML 2 ML AMP IV ONE (07:34)
[2021-04-07] MEDS ORDERED: LIDOCAINE 1% INJ 10MG/ML (20 ML MDV) SQ ONE (07:34)
[2021-04-07] MEDS ORDERED: VERAPAMIL SYRINGE (5 MG/10 ML) INTRAARTER ONE ×2 (07:34→07:36)
[2021-04-07] MEDS ORDERED: HEPARIN SODIUM 1,000 UN/ML (10ML VL) IV ONE ×2 (07:35→07:43)
[2021-04-07] MEDS ORDERED: IOPAMIDOL-370 125ML BTL INJ ONE (07:45)
[2021-04-07] MEDS ORDERED: RX INFO: IV CONTRAST WAS GIVEN 1 EACH MISC MISCELLANE PRN (08:05)
[2021-04-07] MEDS ORDERED: SODIUM CHLORIDE 0.9% 1,000 ML IV SCH (08:15)
--- NOTE | 2021-04-07 08:33 | CC ---
CARDIAC CATHETERIZATION REPORT PROCEDURE PERFORMED: Cardiac catheterization. INDICATIONS: Mrs. Maier is a 76-year-old female with known history of hypertension, hyperlipidemia, diabetes mellitus, history of paroxysmal atrial fibrillation, who has been complaining of dizziness and palpitation. Underwent a Holter monitor and revealed evidence of nonsustained ventricular tachycardia. In view of that, recommendation made regarding cardiac catheterization. The procedure as well as the risks and the complications were discussed with the patient who is in full understanding and agreement. PROCEDURE: Patient was brought to the dental laboratory supervisor in a fasting semi-sedated state after receiving fentanyl and Benadryl and achieving moderate conscious sedated state. Using Xylocaine anesthesia and Seldinger technique, a 6-Tanzanian sheath was introduced in the right radial artery. Selective right and left coronary angiography performed using 5-Tanzanian 3.5 bend right and left Denis catheter. Multiple views of the coronary artery including hemiaxial views were obtained. Following that a 5-T[place]anian tight pigtail catheter was introduced into the left ventricle and a 30-degree HYDE view of the left ventricle was obtained. Following that, catheter and sheath were removed. Hemostasis was obtained with deployment of TR band. There was no immediate complication. Patient was returned to room in stable condition. Of note, the patient received 5000 units of intravenous heparin as well as intra-arterial verapamil. FINDINGS: FLUOROSCOPY: There was moderate calcification involving the left main and the LAD. LEFT MAIN: This is a short size vessel, bifurcating into left circumflex, left anterior descending artery. Left main coronary artery has no evidence of high-grade stenosis. LEFT ANTERIOR DESCENDING ARTERY: This is a large-sized vessel, tortuous in the mid segment, giving rise to a small diagonal branch. The left anterior descending artery in the mid segment has a 20% to 30% plaque. The rest of the vessel has no high-grade stenosis. LEFT CIRCUMFLEX: This is a nondominant vessel giving rise to a large obtuse marginal branch. The left circumflex as well as branches have no evidence of obstructive coronary artery disease. RIGHT CORONARY ARTERY: This is a dominant vessel, large in caliber, bifurcating distally into PDA and posterolateral segment and branches. The right coronary artery as well as branches have no evidence of obstructive coronary artery disease. LEFT VENTRICULOGRAM: Left ventriculogram was performed in 30-degree HYDE view and revealed a normal size and systolic function. Ejection fraction is estimated at 50-55%. There was no significant mitral regurgitation. HEMODYNAMICS: There was no gradient across the aortic valve. The left ventricular end-diastolic pressure was 16-18 mmHg. CONCLUSION: 1. Calcified left main and left anterior descending artery. 2. Mild obstructive disease in the left anterior descending. 3. Preserved left ventricular size and systolic function. RECOMMENDATION: In view of finding anatomy, I recommend continue medical therapy with aggressive coronary risk modifications that have been initiated. Those findings and recommendation were discussed with the patient. She is in full understanding and agreement. Duration of sedation is 18 minutes. MMODL / IJN: [id number] /
--- NOTE | 2021-04-07 08:35 | LTR ---
04/07/2021 RE: Debbie Maier Dear Dr. Guillory: I had the opportunity to perform cardiac catheterization on Mrs. Maier at [facility] on April 07. A full copy of the procedure note will be forwarded to you. In brief, she was found to have no evidence of high-grade stenosis. Her left ventricular systolic function was preserved. Based on those findings, I have recommended continued medical therapy with aggressive coronary risk modifications that has been initiated and follow up her arrhythmia. Depending on her progress, further recommendation will be made. Thank you again for allowing me to participate in your patient's care. Please feel free to call with any questions. Sincerely yours, MD MARILEE Paredes / KRISTINAN: [phone] /
[2021-04-07] MEDS ORDERED: NON FORMULARY DRUG (Magnesium [Magnesium] 200 MG Tablet) PO SCH (09:00)
[2021-04-07] MEDS ORDERED: ESCITALOPRAM 10 MG TAB PO SCH (09:00)
[2021-04-07] MEDS ORDERED: NON FORMULARY DRUG (Losartan/Hydrochlorothiazide [Losartan-Hctz 100-25 Mg Tab] 1 EACH Tabl PO SCH (09:00)
[2021-04-07] MEDS ORDERED: NON FORMULARY DRUG (Zinc [Zinc] 50 MG Tablet) PO SCH (09:00)
[2021-04-07] MEDS ORDERED: atenoloL 25 MG TAB PO SCH (09:00)
[2021-04-07] MEDS ORDERED: GLIMEPIRIDE 4 MG TAB PO SCH (09:00)
[2021-04-07] MEDS ORDERED: NON FORMULARY DRUG (Levothyroxine Sodium [Synthroid] 150 MCG Tablet) PO SCH (09:00)
[2021-04-07 09:11] VITALS: PULSE 65
[2021-04-07 10:29] VITALS: BP 122/59
[2021-04-07] MEDS ORDERED: ACETAMINOPHEN TAB 500 MG TAB PO ONE (11:28)
[2021-04-07] MEDS ORDERED: NON FORMULARY DRUG (Omeprazole [Prilosec] 20 MG Capsule.Dr) PO SCH (17:30)
[2021-04-07] MEDS ORDERED: NON FORMULARY DRUG (Simvastatin [Zocor] 40 MG Tablet) PO SCH (21:00)
[2021-04-07] MEDS ORDERED: ALPRAZolam 0.25 MG TAB PO SCH (21:00)
== END 2021-04-07 13:08 | disposition home or self-care (01) ==
LOC: CATHCVL 06:21
PROVIDERS: ATTEND Internal Medicine Interventional Cardiology
DX: I25.10 Atherosclerotic heart disease of native coronary artery without angina pectoris (principal); I10 Essential (primary) hypertension; I25.84 Coronary atherosclerosis due to calcified coronary lesion; I77.1 Stricture of artery; E78.00 Pure hypercholesterolemia, unspecified; I48.0 Paroxysmal atrial fibrillation; E78.5 Hyperlipidemia, unspecified; Z20.822 Contact with and (suspected) exposure to COVID-19; E11.9 Type 2 diabetes mellitus without complications; Z88.8 Allergy status to other drugs, medicaments and biological substances; Z79.01 Long term (current) use of anticoagulants; Z79.84 Long term (current) use of oral hypoglycemic drugs; Z79.890 Hormone replacement therapy; Z79.899 Other long term (current) drug therapy
CPT/HCPCS: 93458; 87635; C1894; C1769; J2001; J3010; J1644; Q9967

== ENCOUNTER 2022-04-30 11:46 | Emergency (ER) | payer MEDICARE, OTHER ==
[2022-04-30 11:50] VITALS: BP 143/79; PULSE 97; RESP 18; TEMP 97.7
--- NOTE | 2022-04-30 12:23 | ED ---
General Adult HPI - General Chief complaint: Upper Respiratory Infection Stated complaint: Covid + Time Seen by Provider: 04/30/22 11:59 Source: patient Mode of arrival: ambulatory Limitations: no limitations - History of Present Illness Initial comments: Dictation was produced using [employer] dictation software. please excuse any grammatical, word or spelling errors. Chief Complaint: 77-year-old female multiple comorbidities presents to the emergency department for monoclonal antibody infusion to treat COVID-19 History of Present Illness: Is a 77-year-old female presents to the emergency department for monoclonal antibodies to treat COVID-19. Patient tested positive yesterday after being symptomatic for the last 3-4 days. Patient had a conversation with her nephew who is a casino gaming inspector and says that she should probably go to and get the monoclonal antibody infusion. Patient states she's been having nonproductive cough, sore throat and nasal congestion. Patient denies any history of chronic stable lung disease. She does have some very mild shortness of breath. Patient is vaccinated for COVID-19 and received 1 booster. The ROS documented in this emergency department record has been reviewed and confirmed by me. Those systems with pertinent positive or negative responses have been documented in the HPI. All other systems are other negative and/or noncontributory. PHYSICAL EXAM: General Impression: Alert and oriented x3, not in acute distress HEENT: Normocephalic atraumatic, extra-ocular movements intact, pupils equal and reactive to light bilaterally, mucous membranes moist. Cardiovascular: Heart regular rate and rhythm Chest: Able to complete full sentences, no retractions, no tachypnea Abdomen: abdomen soft, non-tender, non-distended, no organomegaly Musculoskeletal: Pulses present and equal in all extremities, no peripheral edema Motor: no focal deficits noted Neurological: CN II-XII grossly intact, no focal motor or sensory deficits noted Skin: Intact with no visualized rashes Psych: Normal affect and mood ED course: 77-year-old female presents to the emergency department requesting mo noclonal antibody infusion. Patient meets criteria for monoclonal infusion. Vital signs upon arrival are within acceptable limits. Patient is not hypoxic. Physical examination is benign she is well-appearing. Risk and benefits were discussed with patient. Patient was given monoclonal antibody infusion and observed in the emergency department for adverse effects. Patient had no acute events. Patient discharged - Related Data Home Medications Medication Instructions Recorded Confirmed ALPRAZolam [Xanax] 0.25 mg PO HS 03/07/16 11/07/21 Glimepiride [Amaryl] 4 mg PO BID 03/07/16 11/07/21 Omeprazole [PriLOSEC] 20 mg PO AC-BID 03/07/16 11/10/21 Simvastatin [Zocor] 40 mg PO HS 03/07/16 11/07/21 metFORMIN HCL [Glucophage] 500 mg PO BID 03/07/16 11/10/21 Cholecalciferol [Vitamin D3 (25 1,000 unit PO DAILY 03/09/16 11/07/21 Mcg = 1000 Iu)] Cyanocobalamin (Vitamin B-12) 1,000 mcg PO DAILY 08/22/18 11/07/21 [Vitamin B-12] Levothyroxine Sodium [Synthroid] 150 mcg PO DAILY 08/22/18 11/07/21 atenoloL 25 mg PO BID 08/22/18 11/07/21 Escitalopram [Lexapro] 10 mg PO DAILY 11/23/20 11/07/21 Ascorbic Acid [Vitamin C] 1,000 mg PO DAILY 03/19/21 11/07/21 Losartan/Hydrochlorothiazide 0.5 tab PO DAILY 03/19/21 11/10/21 [Losartan-Hctz 100-25 mg Tab] Rivaroxaban [Xarelto] 20 mg PO W/SUPPER 03/19/21 11/07/21 Acetaminophen/Diphenhydramine 1 each PO HS PRN 04/07/21 11/07/21 [Tylenol Pm Exstr 500-25Mg Cplt] Allergies Allergy/AdvReac Type Severity Reaction Status Date / Time niacin Allergy Rash/Hives Verified 04/30/22 11:50 adhesive tape AdvReac VERY RED Verified 04/30/22 11:50 SKIN Review of Systems ROS Statement: Those systems with pertinent positive or pertinent negative responses have been documented in the HPI. ROS Other: All systems not noted in ROS Statement are negative. Past Medical History Past Medical History: Atrial Fibrillation, Diabetes Mellitus, GERD/Reflux, Hearing Disorder / Deafness, Hyperlipidemia, Hypertension, Osteoarthritis (OA), Pneumonia, Thyroid Disorder Additional Past Medical History / Comment(s): HIATAL HERNIA, decreased kidney function, bilateral hearing aid use. History of Any Multi-Drug Resistant Organisms: None Reported Past Surgical History: Back Surgery, Cholecystectomy, Heart Catheterization, Hernia Repair Additional Past Surgical History / Comment(s): BACK SURGERY X4, CATARACTS REMOVED WITH IMPLANTS-BILATERAL, EGD, Colonoscopy. Past Anesthesia/Blood Transfusion Reactions: No Reported Reaction Past Psychological History: Anxiety Smoking Status: Never smoker Past Alcohol Use History: None Reported Past Drug Use History: None Reported - Past Family History Sister(s) Family Medical History: Cancer Additional Family Medical History / Comment(s): LIVER CANCER. Brother(s) Family Medical History: Cancer General Exam Limitations: no limitations Course Vital Signs 04/30/22 11:47 Temperature 97.7 F Pulse Rate 97 Respiratory 18 Rate Blood Pressure 143/79 O2 Sat by Pulse 98 Oximetry Disposition Clinical Impression: Coronavirus infection Disposition: HOME SELF-CARE Condition: Good Instructions (If sedation given, give patient instructions): Coronavirus Disease 2019 (COVID-19) Is patient prescribed a controlled substance at d/c from ED?: No Referrals: Evaristo Guillory DO [Primary Care Provider] - 1-2 days Time of Disposition: 13:38
[2022-04-30] MEDS ORDERED: BEBTELOVIMAB (EUA) 175 MG/2 ML VIAL IV ONE (13:00)
== END 2022-04-30 14:08 | disposition home or self-care (01) ==
LOC: EC 11:46
DX: U07.1 COVID-19 (principal); E11.9 Type 2 diabetes mellitus without complications; I10 Essential (primary) hypertension; I48.91 Unspecified atrial fibrillation; K21.9 Gastro-esophageal reflux disease without esophagitis; E78.5 Hyperlipidemia, unspecified; M19.90 Unspecified osteoarthritis, unspecified site; F41.9 Anxiety disorder, unspecified; Z79.01 Long term (current) use of anticoagulants; Z79.84 Long term (current) use of oral hypoglycemic drugs; Z79.899 Other long term (current) drug therapy; Z79.890 Hormone replacement therapy
CPT/HCPCS: 99283; Q0222

== ENCOUNTER → 2022-07-05 | Outpatient (CLI) | payer MEDICARE, OTHER | END | disposition home or self-care (01) | LOC: LABPAT 11:31 | PROVIDERS: ATTEND Orthopaedic Surgery | DX: Z01.812 Encounter for preprocedural laboratory examination (principal); Z22.322 Carrier or suspected carrier of Methicillin resistant Staphylococcus aureus; M17.12 Unilateral primary osteoarthritis, left knee | CPT/HCPCS: 87070 ==

== ENCOUNTER 2022-07-20 13:47 | Emergency (ER) | payer MEDICARE, OTHER ==
[2022-07-20 14:35] VITALS: TEMP 97.8
[2022-07-20] MEDS ORDERED: PANTOPRAZOLE 40 MG/10 ML VIAL IVP STA (16:26)
[2022-07-20] MEDS ORDERED: SODIUM CHLORIDE 0.9% 500 ML 500 ML IV ONE (16:26)
[2022-07-20 16:30] VITALS: RESP 18
[2022-07-20 16:37] LABS: Basophils % (A) 0 %; Eosinophils # (A) 0.1 k/uL (0-0.7); Eosinophils % (A) 2 %; HCT 27.9 % (34.0-46.0); HGB 8.4 gm/dL (11.4-16.0); Hypochromasia Marked; Lymphocytes # (A) 1.8 k/uL (1.0-4.8); Lymphocytes % (A) 21 %; MCH 24.9 pg (25.0-35.0); MCV 82.9 fL (80.0-100.0); Mean Platelet Volume 6.7; Monocytes # (A) 0.6 k/uL (0-1.0); Monocytes % (A) 7 %; Neutrophils % (A) 68 %; Platelet Count 439 k/uL (150-450); Poikilocytosis Slight; RBC 3.37 m/uL (3.80-5.40); WBC 8.8 k/uL (3.8-10.6)
[2022-07-20 16:47] LABS: Albumin 4.5 g/dL (3.5-5.0); Calcium 9.4 mg/dL (8.4-10.2); Potassium 4.3 mmol/L (3.5-5.1); Total Bilirubin 0.3 mg/dL (0.2-1.3)
[2022-07-20 17:01] LABS: Prothrombin Time 10.5 sec (9.0-12.0)
[2022-07-20 17:05] LABS: Partial Thromboplastin Time 21.1 sec (22.0-30.0)
--- NOTE | 2022-07-20 17:30 | ED ---
General Adult HPI - General Chief complaint: Recheck/Abnormal Lab/Rx Stated complaint: Dizziness-sent by PCP Time Seen by Provider: 07/20/22 15:12 Source: patient, RN notes reviewed, old records reviewed Mode of arrival: wheelchair Limitations: no limitations - History of Present Illness Initial comments: 77-year-old female presents for evaluation of low hemoglobin. Patient has been lightheaded and has had some dyspnea. She had outpatient laboratory testing showing that she was anemic and was sent to the emergency department for possible transfusion. She denies rectal bleeding. She states she has had this issue in the past and had both upper and lower endoscopy without a source of bleeding. She denies hematuria. Denies fever. Denies pain complaints. - Related Data Home Medications Medication Instructions Recorded Confirmed ALPRAZolam [Xanax] 0.25 mg PO HS PRN 03/07/16 07/20/22 Glimepiride [Amaryl] 4 mg PO BID 03/07/16 07/20/22 Omeprazole [PriLOSEC] 20 mg PO AC-BID 03/07/16 07/20/22 Simvastatin [Zocor] 40 mg PO HS 03/07/16 07/20/22 metFORMIN HCL [Glucophage] 500 mg PO BID 03/07/16 07/20/22 Levothyroxine Sodium [Synthroid] 150 mcg PO QAM 08/22/18 07/20/22 Escitalopram [Lexapro] 10 mg PO QAM 11/23/20 07/20/22 Rivaroxaban [Xarelto] 15 mg PO DIRECTED 03/19/21 07/20/22 Calcium Carbonate 3,000 mg PO HS 07/13/22 07/20/22 Multivit with Calcium,Iron,Min 1 tab PO DAILY 07/13/22 07/20/22 [Women's Multivitamin] sitaGLIPtin [Januvia] 100 mg PO DAILY 07/13/22 07/20/22 Ascorbic Acid [Vitamin C] 500 mg PO DAILY 07/20/22 07/20/22 Cholecalciferol (Vitamin D3) 75 mcg PO DAILY 07/20/22 07/20/22 [Vitamin D3 (3000 Iu)] Cyanocobalamin (Vitamin B-12) 1,000 mcg PO DAILY 07/20/22 07/20/22 [Vitamin B-12] Zinc Gluconate [Zinc] 50 mg PO DAILY 07/20/22 07/20/22 atenoloL [Tenormin] 50 mg PO DAILY 07/20/22 07/20/22 hydroCHLOROthiazide [Hydrodiuril] 25 mg PO DAILY 07/20/22 07/20/22 Allergies Allergy/AdvReac Type Severity Reaction Status Date / Time niacin Allergy Rash/Hives Verified 07/20/22 16:56 adhesive tape AdvReac VERY RED Verified 07/20/22 16:56 SKIN AND TEARS SKIN-PAPER TAPE IS OK Review of Systems ROS Statement: Those systems with pertinent positive or pertinent negative responses have been documented in the HPI. ROS Other: All systems not noted in ROS Statement are negative. Past Medical History Past Medical History: Atrial Fibrillation, Diabetes Mellitus, GERD/Reflux, Hearing Disorder / Deafness, Hyperlipidemia, Hypertension, Osteoarthritis (OA), Pneumonia, Thyroid Disorder Additional Past Medical History / Comment(s): HIATAL HERNIA, decreased kidney function, bilateral hearing aid use. History of Any Multi-Drug Resistant Organisms: None Reported Past Surgical History: Back Surgery, Cholecystectomy, Heart Catheterization, Hernia Repair Additional Past Surgical History / Comment(s): BACK SURGERY X4, CATARACTS REMOVED WITH IMPLANTS-BILATERAL, EGD, Colonoscopy. Past Anesthesia/Blood Transfusion Reactions: No Reported Reaction Past Psychological History: Anxiety Smoking Status: Never smoker - Past Family History Sister(s) Family Medical History: Cancer Additional Family Medical History / Comment(s): LIVER CANCER. Brother(s) Family Medical History: Cancer General Exam Limitations: no limitations General appearance: alert, in no apparent distress Head exam: Present: atraumatic, normocephalic Eye exam: Present: normal appearance, PERRL ENT exam: Present: normal exam Neck exam: Present: normal inspection. Absent: tenderness, meningismus Respiratory exam: Present: normal lung sounds bilaterally. Absent: respiratory distress, wheezes Cardiovascular Exam: Present: regular rate, normal rhythm GI/Abdominal exam: Present: soft. Absent: distended, tenderness, guarding Extremities exam: Present: normal inspection, normal capillary refill Neurological exam: Present: alert, oriented X3, CN II-XII intact. Absent: motor sensory deficit Psychiatric exam: Present: normal affect, normal mood Skin exam: Present: warm, dry, intact. Absent: cyanosis, diaphoretic Course Vital Signs 07/20/22 07/20/2222 14:32 16:27 16:30 Temperature 97.8 F Pulse Rate 82 73 68 Respiratory 20 18 18 Rate Blood Pressure 79/48 138/69 138/69 O2 Sat by Pulse 97 99 99 Oximetry 07/20/22 07/20/22 07/20/22 17:00 17:30 17:40 Temperature Pulse Rate 69 67 74 Respiratory 18 18 18 Rate Blood Pressure 119/69 126/68 122/65 O2 Sat by Pulse 98 98 98 Oximetry EKG Findings - EKG Comments: EKG Findings:: EKG: Sinus rhythm rate of 68, ID interval 154, QRS duration 87, QTC [address] segment elevation. Medical Decision Making - Medical Decision Making 77-year-old female presenting for evaluation of anemia. Patient has had somewhat of a chronic issue. She has had endoscopy and colonoscopy with no definitive source of bleeding. Hemoglobin repeated in the emergency Department is 8.4 which is trending up. Other laboratory studies testing is unremarkable. I did attempt to contact the primary but was off for the weekend. Patient is reassured bilateral testing. She's given return parameters and will follow-up with her primary care physician on Saturday. - Lab Data Result diagrams: 07/20/22 16:16 07/20/22 16:16 Lab Results 07/20/22 07/20/22 07/20/22 Range/Units 15:23 16:16 16:16 WBC 8.8 (3.8-10.6) k/uL RBC 3.37 L (3.80-5.40) m/uL Hgb 8.4 L (11.4-16.0) gm/dL Hct 27.9 L (34.0-46.0) % MCV 82.9 (80.0-100.0) fL MCH 24.9 L (25.0-35.0) pg MCHC 30.0 L (31.0-37.0) g/dL RDW 15.0 (11.5-15.5) % Plt Count 439 (150-450) k/uL MPV 6.7 Neutrophils % 68 % Lymphocytes % 21 % Monocytes % 7 % Eosinophils % 2 % Basophils % 0 % Neutrophils # 6.0 (1.3-7.7) k/uL Lymphocytes # 1.8 (1.0-4.8) k/uL Monocytes # 0.6 (0-1.0) k/uL Eosinophils # 0.1 (0-0.7) k/uL Basophils # 0.0 (0-0.2) k/uL Hypochromasia Marked Poikilocytosis Slight PT 10.5 (9.0-12.0) sec INR 1.0 (<1.2) APTT 21.1 L (22.0-30.0) sec Sodium (137-145) mmol/L Potassium (3.5-5.1) mmol/L Chloride (98-107) mmol/L Carbon Dioxide (22-30) mmol/L Anion Gap mmol/L BUN (7-17) mg/dL Creatinine (0.52-1.04) mg/dL Est GFR (CKD-EPI)AfAm (>60 ml/min/1.73 sqM) Est GFR (CKD-EPI)NonAf (>60 ml/min/1.73 sqM) Glucose (74-99) mg/dL Calcium (8.4-10.2) mg/dL Total Bilirubin (0.2-1.3) mg/dL AST (14-36) U/L ALT (4-34) U/L Alkaline Phosphatase (38-126) U/L Total Protein (6.3-8.2) g/dL Albumin (3.5-5.0) g/dL Urine Color Yellow Urine Appearance Clear (Clear) Urine pH 5.5 (5.0-8.0) Ur Specific [place] 1.017 (1.001-1.035) Urine Protein Negative (Negative) Urine Glucose (UA) Trace H (Negative) Urine Ketones Negative (Negative) Urine Blood Negative (Negative) Urine Nitrite Negative (Negative) Urine Bilirubin Negative (Negative) Urine Urobilinogen <2.0 (<2.0) mg/dL Ur Leukocyte Esterase Trace H (Negative) Urine RBC <1 (0-5) /hpf Urine WBC 2 (0-5) /hpf Ur Squamous Epith Cells 1 (0-4) /hpf Urine Mucus Rare H (None) /hpf Blood Type Blood Type Recheck Bld Type Recheck Status Antibody Screen Antibody Identification Direct Antiglob Test Spec Expiration Date 07/20/22 07/20/22 Range/Units 16:16 16:16 WBC (3.8-10.6) k/uL RBC (3.80-5.40) m/uL Hgb (11.4-16.0) gm/dL Hct (34.0-46.0) % MCV (80.0-100.0) fL MCH (25.0-35.0) pg MCHC (31.0-37.0) g/dL RDW (11.5-15.5) % Plt Count (150-450) k/uL MPV Neutrophils % % Lymphocytes % % Monocytes % % Eosinophils % % Basophils % % Neutrophils # (1.3-7.7) k/uL Lymphocytes # (1.0-4.8) k/uL Monocytes # (0-1.0) k/uL Eosinophils # (0-0.7) k/uL Basophils # (0-0.2) k/uL Hypochromasia Poikilocytosis PT (9.0-12.0) sec INR (<1.2) APTT (22.0-30.0) sec Sodium 137 (137-145) mmol/L Potassium 4.3 (3.5-5.1) mmol/L Chloride 96 L (98-107) mmol/L Carbon Dioxide 26 (22-30) mmol/L Anion Gap 15 mmol/L BUN 28 H (7-17) mg/dL Creatinine 1.16 H (0.52-1.04) mg/dL Est GFR (CKD-EPI)AfAm 53 (>60 ml/min/1.73 sqM) Est GFR (CKD-EPI)NonAf 46 (>60 ml/min/1.73 sqM) Glucose 189 H (74-99) mg/dL Calcium 9.4 (8.4-10.2) mg/dL Total Bilirubin 0.3 (0.2-1.3) mg/dL AST 19 (14-36) U/L ALT 13 (4-34) U/L Alkaline Phosphatase 84 (38-126) U/L Total Protein 7.0 (6.3-8.2) g/dL Albumin 4.5 (3.5-5.0) g/dL Urine Color Urine Appearance (Clear) Urine pH (5.0-8.0) Ur Specific [place] (1.001-1.035) Urine Protein (Negative) Urine Glucose (UA) (Negative) Urine Ketones (Negative) Urine Blood (Negative) Urine Nitrite (Negative) Urine Bilirubin (Negative) Urine Urobilinogen (<2.0) mg/dL Ur Leukocyte Esterase (Negative) Urine RBC (0-5) /hpf Urine WBC (0-5) /hpf Ur Squamous Epith Cells (0-4) /hpf Urine Mucus (None) /hpf Blood Type A Negative Blood Type Recheck A Neg Bld Type Recheck Status No Antibody Screen POSITIVE Antibody Identification Anti-D Direct Antiglob Test Negative Spec Expiration Date 07/23/20222315 Disposition Clinical Impression: Anemia Disposition: HOME SELF-CARE Condition: Fair Instructions (If sedation given, give patient instructions): Anemia (ED) Is patient prescribed a controlled substance at d/c from ED?: No Referrals: Evaristo Guillory DO [Primary Care Provider] - 1-2 days Time of Disposition: 18:52
[2022-07-20 18:40] LABS: Appearance,Urine Clear (Clear); Bilirubin,Urine Negative (Negative); Blood,Urine Negative (Negative); Color,Urine Yellow; Glucose,Urine (UA) Trace (Negative); Ketones,Urine Negative (Negative); Leukocyte Esterase,Urine Trace (Negative); Mucus,Urine Rare /hpf; Nitrite,Urine Negative (Negative); PH, Urine 5.5 (5.0-8.0); Protein,Urine Negative (Negative); RBC,Urine <1 /hpf (0-5); Specific Gravity,Urine 1.017 (1.001-1.035); Squamous Epithelial Cell,Urine 1 /hpf (0-4); Urobilinogen,Urine <2.0 mg/dL (<2.0); WBC,Urine 2 /hpf (0-5)
[2022-07-20 19:02] VITALS: BP 121/61; PULSE 66
== END 2022-07-20 19:20 | disposition home or self-care (01) ==
LOC: EC 13:47
DX: D64.9 Anemia, unspecified (principal); E11.9 Type 2 diabetes mellitus without complications; I10 Essential (primary) hypertension; E78.5 Hyperlipidemia, unspecified; M19.90 Unspecified osteoarthritis, unspecified site; E07.9 Disorder of thyroid, unspecified; K21.9 Gastro-esophageal reflux disease without esophagitis; Z86.79 Personal history of other diseases of the circulatory system; Z79.84 Long term (current) use of oral hypoglycemic drugs; Z79.890 Hormone replacement therapy; Z79.01 Long term (current) use of anticoagulants; Z79.899 Other long term (current) drug therapy; Z88.3 Allergy status to other anti-infective agents; Z91.048 Other nonmedicinal substance allergy status
CPT/HCPCS: 36415; 93005; 86900; 86901; 80053; 85025; 85610; 85730; 86850; 86870; 86880; 81001; 99284; 96374; 96361; C9113

== ENCOUNTER → 2022-08-09 | Day surgery (SDC) | payer MEDICARE, OTHER ==
[2022-08-03 09:31] VITALS: BMI 34.1
[~2022-08-09] MED LIST changes: -ALPRAZolam 0.25 MG TAB PO PRN; -ALPRAZolam 0.5 MG TAB PO PRN; -ASPIRIN 325 MG TAB PO STA; -ATORVASTATIN 80 MG TAB PO STA; -NITROGLYCERIN SL TABS 0.4 MG TAB SUBLINGUAL PRN; +SIMETHICONE 40 MG/0.6 ML DROPS 2,000 MG/30 ML BOTTLE PO ONE; -SODIUM CHLORIDE 0.9% 1,000 ML in EMPTY BAG 1 BAG IV ONE
[2022-08-09 06:44] VITALS: BP 115/75; PULSE 79; RESP 16; TEMP 97.1
== END ==
LOC: ORWHC2ENDO 06:06
PROVIDERS: ATTEND Internal Medicine Gastroenterology
DX: D50.9 Iron deficiency anemia, unspecified (principal)
CPT/HCPCS: 91110

== ENCOUNTER → 2022-09-18 | Outpatient (CLI) | payer MEDICARE, OTHER ==
[2022-09-18 15:59] LABS: ALT 15 U/L (8-44); AST 14 U/L (13-35); African American GFR (CKD) 62.2 (60.0-200.0); Albumin 4.3 g/dL (3.8-4.9); Alkaline Phosphatase 77 U/L (41-126); BUN/Creat Ratio 20.59 Ratio (12.00-20.00); Blood Urea Nitrogen 20.8 mg/dL (9.0-27.0); Calcium 9.3 mg/dL (8.7-10.3); Carbon Dioxide 25.2 mmol/L (20.0-27.5); Chloride 100 mmol/L (96-109); Chol/HDL Ratio 2.92 Ratio; Globulin 2.1 g/dL (1.6-3.3); Glucose 175 mg/dL (70-110); LDL Cholesterol,Calculated 49.2 mg/dL (0.0-131.0); Non-African American GFR(CKD) 53.7 (60.0-200.0); Potassium 3.9 mmol/L (3.5-5.5); Sodium 140 mmol/L (135-145); Total Protein 6.4 g/dL (6.2-8.2)
[2022-09-18 22:26] LABS: Microalbumin Creatinine Ratio <30 mg/g Creat (0-30)
== END | disposition home or self-care (01) ==
LOC: LABWHC1 08:07
PROVIDERS: ATTEND Internal Medicine Endocrinology, Diabetes & Metabolism
DX: E11.65 Type 2 diabetes mellitus with hyperglycemia (principal)
CPT/HCPCS: 36415; 80053; 80061; 82043; 82570; 83036; 84443

== ENCOUNTER → 2023-02-07 | Outpatient (CLI) | payer MEDICARE, OTHER ==
[2023-02-07 15:36] LABS: Basophils # (A) 0.02 X 10*3/uL (0.00-0.10); Basophils % (A) 0.2 %; Eosinophils % (A) 1.2 %; HCT 29.7 % (37.2-46.3); HGB 9.2 g/dL (12.0-15.0); Immature Grans, Automated 0.5 %; Lymphocytes # (A) 1.33 X 10*3/uL (0.90-5.00); Lymphocytes % (A) 15.6 %; MCH 30.7 pg (27.0-32.0); Mean Platelet Volume 9.2 fL (9.5-12.2); Monocytes # (A) 0.62 X 10*3/uL (0.20-1.00); Monocytes % (A) 7.3 %; NRBC Per 100 WBC 0 /100 WBCS (0.0-0.0); Neutrophils # (A) 6.43 X 10*3/uL (1.80-7.70); Neutrophils % (A) 75.2 %; Platelet Count 309 X 10*3/uL (140-440); WBC 8.54 X 10*3/uL (4.50-10.00)
[2023-02-07 15:59] LABS: INR 0.95 (0.90-1.11); Prothrombin Time 10.8 sec (9.9-11.9)
[2023-02-07 16:06] LABS: African American GFR (CKD) 53.2 (60.0-200.0); BUN/Creat Ratio 15.83 Ratio (12.00-20.00); Blood Urea Nitrogen 18.2 mg/dL (9.0-27.0); Calcium 9.3 mg/dL (8.7-10.3); Carbon Dioxide 25.3 mmol/L (20.0-27.5); Non-African American GFR(CKD) 45.9 (60.0-200.0)
== END | disposition home or self-care (01) ==
LOC: LABWHC1 10:44
PROVIDERS: ATTEND Emergency Medicine
DX: I48.0 Paroxysmal atrial fibrillation (principal)
CPT/HCPCS: 36415; 80048; 85025; 85610

== ENCOUNTER 2023-07-29 20:04 | Emergency (ER) | payer MEDICARE, OTHER ==
[2023-07-29 20:50] VITALS: TEMP 98.1
--- NOTE | 2023-07-29 21:58 | CT ---
EXAMINATION TYPE: CT brain cspine wo con CT DLP: 515 mGycm, Automated exposure control for dose reduction was used. DATE OF EXAM: 07/29/2023 9:30 PM COMPARISON: None. CLINICAL INDICATION:Female, 78 years old with history of pain TECHNIQUE: Brain: Multiple axial CT images of the brain were obtained without IV contrast. Cspine: Axial CT images from the skull base to the inferior aspect of T2 we obtained without intraven ous contrast. Coronal and sagittal reformatted images were also reviewed. FINDINGS: Brain: Extra-axial spaces: No abnormal extra-axial fluid collections. Ventricular system: Dilatation in proportion to cerebral atrophy. Cerebral parenchyma: Cerebral atrophy. No acute intraparenchymal hemorrhage or mass effect. The newell -white junction is well differentiated. Scattered hypoattenuating areas are seen within the white mat ter. Cerebellum: Unremarkable. Mass effect: No evidence of midline shift. Intracranial vasculature: Atherosclerotic calcifications of the intracranial vessels. Soft tissues: Normal. Calvarium/osseous structures: No depressed skull fracture. Paranasal sinuses and mastoid air cells: Clear. Visualized orbits: Bilateral aphakia Cervical spine: Fracture: None. Osseous structures: Multilevel degenerative disc disease changes with endplate spurring and disc oste ophyte complex's. Vertebral alignment: Grade 1 anterolisthesis of C3 on C4. Spinal canal/Neural Foramina: Disc osteophyte complexes at C4-C5 and C6 with at least mild spinal can al stenosis. Facet joint uncovertebral joint arthropathy scattered throughout the cervical spine with varying degrees of neural foraminal stenosis. Neck soft tissues: Prevertebral soft tissues are within normal limits. Other: The airway is patent. Atherosclerosis of the carotid bifurcations. IMPRESSION: 1. No acute intracranial process. 2. Nonspecific white matter changes, likely secondary to chronic small vessel ischemic disease. 3. No evidence of cervical spine fracture. 4. Moderate multilevel degenerative disc disease.
--- NOTE | 2023-07-29 22:15 | ED ---
Neck Injury/Pain HPI - General Chief Complaint: Neck Pain/Injury Stated Complaint: Neck Pain-Fall Time Seen by Provider: 07/29/23 21:01 Source: RN notes reviewed, old records reviewed Mode of arrival: ambulatory Limitations: no limitations - History of Present Illness Initial Comments: This is a 78-year-old female to the emergency department today. This patient presents today for evaluation regards to severe neck pain. Patient multiple falls recently without significant trauma but she did have some neck sprain type of pain. She woke up this morning with inability to change position of her neck or move her head or neck. Neck pain is severe without any other complaints or neurological issue MD Complaint: neck pain, other (neck strain) -: hour(s) Place: home Radiation: right lateral, left lateral Severity: severe Severity scale (1-10): 10 Quality: sharp, stabbing Consistency: constant Improves With: none Worsens With: none Context: near fall Associated Symptoms: none - Related Data Home Medications Medication Instructions Recorded Confirmed ALPRAZolam [Xanax] 0.25 mg PO HS PRN 03/07/16 08/07/22 Glimepiride [Amaryl] 4 mg PO BID 03/07/16 08/07/22 Omeprazole [PriLOSEC] 20 mg PO AC-BID 03/07/16 08/07/22 Simvastatin [Zocor] 40 mg PO HS 03/07/16 08/07/22 metFORMIN HCL [Glucophage] 500 mg PO BID 03/07/16 08/07/22 Levothyroxine Sodium [Synthroid] 150 mcg PO QAM 08/22/18 08/07/22 Escitalopram [Lexapro] 10 mg PO QAM 11/23/20 08/07/22 Rivaroxaban [Xarelto] 15 mg PO DIRECTED 03/19/21 08/07/22 Calcium Carbonate 3,000 mg PO HS 07/13/22 08/07/22 Multivit with Calcium,Iron,Min 1 tab PO DAILY 07/13/22 08/07/22 [Women's Multivitamin] sitaGLIPtin [Januvia] 100 mg PO DAILY 07/13/22 08/07/22 Ascorbic Acid [Vitamin C] 500 mg PO DAILY 07/20/22 08/07/22 Cholecalciferol (Vitamin D3) 75 mcg PO DAILY 07/20/22 08/07/22 [Vitamin D3 (3000 Iu)] Cyanocobalamin (Vitamin B-12) 1,000 mcg PO DAILY 07/20/22 08/07/22 [Vitamin B-12] Zinc Gluconate [Zinc] 50 mg PO DAILY 07/20/22 08/07/22 atenoloL [Tenormin] 50 mg PO DAILY 07/20/22 08/07/22 hydroCHLOROthiazide [Hydrodiuril] 25 mg PO DAILY 07/20/22 08/07/22 Acetaminophen/Diphenhydramine 1 tab PO HS 08/03/22 08/07/22 [Tylenol PM 500-25mg] Allergies Allergy/AdvReac Type Severity Reaction Status Date / Time niacin Allergy Rash/Hives Verified 07/29/23 20:45 adhesive tape AdvReac VERY RED Verified 07/29/23 20:45 SKIN AND TEARS SKIN-PAPER TAPE IS OK Review of Systems ROS Statement: Those systems with pertinent positive or pertinent negative responses have been documented in the HPI. ROS Other: All systems not noted in ROS Statement are negative. Past Medical History Past Medical History: Atrial Fibrillation, Diabetes Mellitus, GERD/Reflux, Hearing Disorder / Deafness, Hyperlipidemia, Hypertension, Osteoarthritis (OA), Pneumonia, Thyroid Disorder Additional Past Medical History / Comment(s): HIATAL HERNIA, decreased kidney function, bilateral hearing aid use. LOW HGB-LAST LEVEL WAS 8.4 ON 07/20/22-PT HAD 2 IRON INFUSTIONS-07/24 AND 07/27/22. History of Any Multi-Drug Resistant Organisms: None Reported Past Surgical History: Back Surgery, Cholecystectomy, Heart Catheterization, Hernia Repair Additional Past Surgical History / Comment(s): BACK SURGERY X4, CATARACTS REMOVED WITH IMPLANTS-BILATERAL, EGD, Colonoscopy. Past Anesthesia/Blood Transfusion Reactions: No Reported Reaction Past Psychological History: Anxiety Smoking Status: Never smoker Past Alcohol Use History: None Reported Past Drug Use History: None Reported - Past Family History Sister(s) Family Medical History: Cancer Additional Family Medical History / Comment(s): LIVER CANCER. Brother(s) Family Medical History: Cancer General Exam - General Exam Comments Initial Comments: Patient has difficulty moving neck in any direction actively I was able to take patient to passive range of motion Limitations: no limitations General appearance: alert, in no apparent distress Head exam: Present: atraumatic, normocephalic, normal inspection Eye exam: Present: normal appearance, PERRL, EOMI. Absent: scleral icterus, conjunctival injection, periorbital swelling ENT exam: Present: normal exam, mucous membranes moist Neck exam: Present: normal inspection. Absent: tenderness, meningismus, lymphadenopathy Respiratory exam: Present: normal lung sounds bilaterally. Absent: respiratory distress, wheezes, rales, rhonchi, stridor Cardiovascular Exam: Present: regular rate, normal rhythm, normal heart sounds. Absent: systolic murmur, diastolic murmur, rubs, gallop, clicks GI/Abdominal exam: Present: soft, normal bowel sounds. Absent: distended, tenderness, guarding, rebound, rigid Extremities exam: Present: normal inspection, full ROM, normal capillary refill. Absent: tenderness, pedal edema, joint swelling, calf tenderness Back exam: Present: normal inspection Neurological exam: Present: alert, oriented X3, CN II-XII intact Psychiatric exam: Present: normal affect, normal mood Skin exam: Present: warm, dry, intact, normal color. Absent: rash Course Vital Signs 07/29/23 07/29/23 20:41 23:31 Temperature 98.1 F Pulse Rate 78 75 Respiratory 18 17 Rate Blood Pressure 132/75 125/84 O2 Sat by Pulse 96 96 Oximetry - Reevaluation(s) Reevaluation #1: 07/30/23 01:09 Medical record is reviewed Reevaluation #2: 07/30/23 01:09 Patient symptoms are mildly improved 07/30/23 01:09 Patient is without fever Reevaluation #3: 07/30/23 01:09 Patient informed results questions answered Reevaluation #4: 07/30/23 01:09 Was pt. sent in by a medical professional or institution (, PA, SCRIPT GIRL, urgent care, hospital, or long term...) When possible be specific @ -no Did you speak to anyone other than the patient for history (EMS, parent, family, police, friend...)? What history was obtained from this source @ -no Did you review nursing and triage notes (agree or disagree)? Why? @ -agree Are old charts reviewed (outside hosp., previous admission, EMS record, old EKG, old radiological studies, urgent care reports/EKG's, long term records)? Report findings @ -yes Differential Diagnosis (chest pain, altered mental status, abdominal pain women, abdominal pain men, vaginal bleeding, weakness, fever, dyspnea, syncope, headache, dizziness, GI bleed, back pain, seizure, CVA, palpatations, mental health, musculoskeletal)? @ -prior EKG interpreted by me (3pts min.). @ -no X-rays interpreted by me (1pt min.). @ -no CT interpreted by me (1pt min.). @ -yes U/S interpreted by me (1pt. min.). @ -no What testing was considered but not performed or refused? (CT, X-rays, U/S, labs)? Why? @ -none What meds were considered but not given or refused? Why? @ -none Did you discuss the management of the patient with other professionals (professionals i.e. , PA, SCRIPT GIRL, lab, RT, psych nurse, criminal justice social worker, machine fitter, teacher, chief supply chain officer, home health care case manager)? Give summary @ -no Was smoking cessation discussed for >3mins.? @ -no Was critical care preformed (if so, how long)? @ -no Were there social determinants of health that impacted care today? How? (Homelessness, low income, unemployed, alcoholism, drug addiction, transportation, low edu. Level, literacy, decrease access to med. care, group home, rehab)? @ -none Was there de-escalation of care discussed even if they declined (Discuss DNR or withdrawal of care, Hospice)? DNR status @ -no What co-morbidities impacted this encounter? (DM, HTN, Smoking, COPD, CAD, Cancer, CVA, ARF, Chemo, Hep., AIDS, mental health diagnosis, sleep apnea, morbid obesity)? @ -none Was patient admitted / discharged? Hospital course, mention meds given and route, prescriptions, significant lab abnormalities, going to OR and other pertinent info. @ - 78 female to the emergency room today For evaluation of neck pain strain. Mildly significantly traumatic injury with significant traumatic event. Computed tomography scan is negative here in the ER patient symptoms are imp roved and can be discharged home Discharge Undiagnosed new problem with uncertain prognosis? @ -no Drug Therapy requiring intensive monitoring for toxicity (Heparin, Nitro, Insulin, Cardizem)? @ -no Were any procedures done? @ -no Diagnosis/symptom? @ - Acute neck pain Acute, or Chronic, or Acute on Chronic? @ -Acute Uncomplicated (without systemic symptoms) or Complicated (systemic symptoms)? @ -Complicated Side effects of treatment? @ -no Exacerbation, Progression, or Severe Exacerbation? @ -exacerbation Poses a threat to life or bodily function? How? (Chest pain, [place], [place], pneumonia, PE, COPD, DKA, ARF, appy, cholecystitis, CVA, Diverticulitis, Homicidal, Suicidal, threat to staff... and all critical care pts) @ -no Medical Decision Making - Medical Decision Making 78 female to the emergency room today For evaluation of neck pain strain. Mildly significantly traumatic injury with significant traumatic event. Computed tomography scan is negative here in the ER patient symptoms are improved and can be discharged home - Radiology Data Radiology results: report reviewed (CT brain C-spine negative for traumatic injury), image reviewed Disposition Clinical Impression: Strain of neck muscle, Acute torticollis Disposition: HOME SELF-CARE Condition: Good Instructions (If sedation given, give patient instructions): Cervical Strain (ED), Cervical Sprain (ED) Is patient prescribed a controlled substance at d/c from ED?: No Referrals: Evaristo Guillory DO [Primary Care Provider] - 1-2 days Time of Disposition: 23:00
[2023-07-29] MEDS ORDERED: CYCLOBENZAPRINE 10MG STARTER 3 TAB BTL PO STA (23:04)
[2023-07-29] MEDS ORDERED: IBUPROFEN 600 MG STARTER PACK 4 TAB BTL PO STA (23:04)
[2023-07-29] MEDS ORDERED: KETOROLAC 15 MG/ML 1 ML VIAL IM STA (23:04)
[2023-07-29] MEDS ORDERED: CYCLOBENZAPRINE 10 MG TAB PO STA (23:04)
[2023-07-29] MEDS ORDERED: ACET/COD 300 MG/30 MG STARTER PACK 6 TAB BTL PO STA (23:04)
[2023-07-29] MEDS ORDERED: dexAMETHasone 2 MG TAB PO STA (23:04)
[2023-07-29 23:40] VITALS: BP 125/84; PULSE 75; RESP 17
== END 2023-07-29 23:33 | disposition home or self-care (01) ==
LOC: EC 20:04
DX: S16.1XXA Strain of muscle, fascia and tendon at neck level, initial encounter (principal); M43.6 Torticollis; I48.91 Unspecified atrial fibrillation; I10 Essential (primary) hypertension; E78.5 Hyperlipidemia, unspecified; K21.9 Gastro-esophageal reflux disease without esophagitis; M19.90 Unspecified osteoarthritis, unspecified site; E07.9 Disorder of thyroid, unspecified; F41.9 Anxiety disorder, unspecified; Z88.8 Allergy status to other drugs, medicaments and biological substances; Z79.890 Hormone replacement therapy; Z79.84 Long term (current) use of oral hypoglycemic drugs; Z79.899 Other long term (current) drug therapy; W19.XXXA Unspecified fall, initial encounter
CPT/HCPCS: 72125; 70450; 99284; 96372; J8540; J1885

== ENCOUNTER → 2023-08-16 | Outpatient (CLI) | payer MEDICARE, OTHER | END | disposition home or self-care (01) | LOC: LABPAT 10:10 | PROVIDERS: ATTEND Orthopaedic Surgery | DX: Z01.812 Encounter for preprocedural laboratory examination (principal); M17.12 Unilateral primary osteoarthritis, left knee; Z22.322 Carrier or suspected carrier of Methicillin resistant Staphylococcus aureus | CPT/HCPCS: 87070 ==

== ENCOUNTER 2023-09-24 05:37 | Day surgery (SDC) | payer MEDICARE, OTHER ==
[2023-09-17 09:23] VITALS: BMI 30.3
--- NOTE | 2023-09-23 09:54 | P.HPOR ---
History of Present Illness H&P Date: 09/23/23 Chief Complaint: Left knee pain The patient is a 78-year-old retired female presents with progressive left knee pain worsening with past several years. She is having pain with weightbearing activities. She notes it significantly limits her. She's tried previous medications and injections along with home exercises without much relief. Review of Systems Negative except as in HPI Past Medical History Past Medical History: Atrial Fibrillation, Diabetes Mellitus, GERD/Reflux, Hearing Disorder / Deafness, Hyperlipidemia, Hypertension, Osteoarthritis (OA), Pneumonia, Thyroid Disorder Additional Past Medical History / Comment(s): HIATAL HERNIA, decreased kidney function, bilateral hearing aid use. HX LOW HGB(8.4 ON 07/20/22), HAD IRON INFUSIONS. History of Any Multi-Drug Resistant Organisms: None Reported Past Surgical History: Back Surgery, Cholecystectomy, Heart Catheterization, Hernia Repair Additional Past Surgical History / Comment(s): BACK SURGERY X4, CATARACTS REMOVED WITH IMPLANTS-BILATERAL, EGD, Colonoscopy, Watchman device implant. Past Anesthesia/Blood Transfusion Reactions: No Reported Reaction Past Psychological History: Anxiety Smoking Status: Never smoker Past Alcohol Use History: None Reported Past Drug Use History: None Reported - Past Family History Sister(s) Family Medical History: Cancer Additional Family Medical History / Comment(s): LIVER CANCER. Brother(s) Family Medical History: Cancer Medications and Allergies Home Medications Medication Instructions Recorded Confirmed Type ALPRAZolam [Xanax] 0.25 mg PO BID PRN 03/07/16 09/17/23 History Glimepiride [Amaryl] 4 mg PO BID 03/07/16 09/17/23 History Omeprazole [PriLOSEC] 20 mg PO BID 03/07/16 09/17/23 History Simvastatin [Zocor] 40 mg PO HS 03/07/16 09/17/23 History metFORMIN HCL [Glucophage] 500 mg PO BID 03/07/16 09/17/23 History Levothyroxine Sodium [Synthroid] 150 mcg PO QAM 08/22/18 09/17/23 History Escitalopram [Lexapro] 10 mg PO QAM 11/23/20 09/17/23 History Multivit with Calcium,Iron,Min 1 tab PO DAILY 07/13/22 09/17/23 History [Women's Multivitamin] sitaGLIPtin [Januvia] 100 mg PO DAILY 07/13/22 09/17/23 History atenoloL [Tenormin] 50 mg PO QAM 07/20/22 09/17/23 History Aspirin EC [Ecotrin Low Dose] 81 mg PO DAILY 08/20/23 09/17/23 History Ferrous Sulfate [Iron] 325 mg PO DAILY 09/17/23 09/17/23 History Allergies Allergy/AdvReac Type Severity Reaction Status Date / Time niacin Allergy Rash/Hives Verified 09/17/23 09:03 adhesive tape AdvReac VERY RED Verified 09/17/23 09:03 SKIN AND TEARS SKIN-PAPER TAPE IS OK Physical Examination - Knee left Appearance: effusion Effusion grade: grade 1 Varus alignment in stance: 5 degrees Tenderness with palpation: anterior, medial Pain: throughout ROM ROM: extension: -10 degrees ROM: flexion: 110 degrees Crepitus with motion: Yes Strength: extension: 5/5 Strength: flexion: 5/5 Meniscal tests: medial meniscal tests: positive, medial joint line pain: positive Results The patient is a well-developed well-nourished female approximately 5 foot 6, 206 pounds of endomorphic habitus. HEENT exam is nonfocal, neck is supple. She has painless passive motion of the left hip. Straight leg raise is negative. She is tender about the medial joint line of the left knee. Collaterals are stable, Adarsh is negative, Jesica's is equivocal. Her distal neurovascular exam appears intact in the left lower extremity. - Diagnostic results Knee x-ray: image reviewed (3 views of the left knee obtained the office show severe medial and patellofemoral compartment osteoarthrosis.) Assessment and Plan Assessment: Left knee severe medial and patellofemoral compartment osteoarthrosis Plan: I talked with the patient at length regarding her condition along with treatment options. At this point she is quite limited because of pain related to her left knee osteoarthrosis despite previous conservative measures. After a thorough discussion she opts to proceed with surgery. We'll plan to proceed with left total knee arthroplasty. Risks and benefits were discussed at length in layman's terms. We'll institute DVT prophylaxis postoperatively.
[~2023-09-24 05:37] MED LIST changes: +ACETAMINOPHEN TAB 500 MG TAB PO PRN; +MELOXICAM 7.5 MG TAB PO PRN; -SIMETHICONE 40 MG/0.6 ML DROPS 2,000 MG/30 ML BOTTLE PO ONE; +TRANEXAMIC 1,000 MG/100ML-NACL 1,000 MG in SALINE 1 100ML.BAG IVPB PRN
[2023-09-24] MEDS ORDERED: ONDANSETRON 4 MG/2 ML VIAL IVP ONE (06:13)
[2023-09-24] MEDS ORDERED: DEXAMETHASONE SOD PHOSPHATE 4 MG/ML 1 ML VIAL IV ONE (06:13)
[2023-09-24] MEDS: LACTATED RINGERS 1,000 ML IV SCH (06:23)
[2023-09-24] MEDS ORDERED: HYDROmorphone 0.5 MG/0.5 ML SYRINGE IVP PRN ×2 (07:00→08:34)
[2023-09-24 07:04] LABS: Glucose,Whole Blood 222 mg/dL (70-110)
[2023-09-24] MEDS ORDERED: FAMOTIDINE 20 MG/2 ML VIAL IVP ONE (07:06)
[2023-09-24] MEDS ORDERED: fentaNYL (PF) 50 MCG/ML 2 ML AMP IVP ONE ×2 (07:07→07:08)
[2023-09-24] MEDS: MIDAZOLAM 2 MG/2 ML VIAL IV PRN ×2 (07:07→07:08)
[2023-09-24] MEDS ORDERED: INSULIN ASPART (NovoLOG) 100 UNIT/ML VIAL SQ ONE (07:15)
[2023-09-24] MEDS ORDERED: LIDOCAINE 1% INJ 10MG/ML (20 ML MDV) ONE (07:30)
[2023-09-24] MEDS ORDERED: ePHEDrine 50 MG/ML 1 ML VIAL ONE (07:30)
[2023-09-24] MEDS ORDERED: MIDAZOLAM 2 MG/2 ML VIAL ONE (07:30)
[2023-09-24] MEDS ORDERED: NEOSTIGMINE 1 MG/ML 10 ML VIAL ONE (07:30)
[2023-09-24] MEDS ORDERED: LIDOCAINE 1%-EPI 1:100,000 20 ML VIAL ONE (07:30)
[2023-09-24] MEDS ORDERED: SUCCINYLCHOLINE CHLORIDE 200 MG/10 ML VIAL IV ONE (07:30)
[2023-09-24] MEDS ORDERED: PROPOFOL 10 MG/ML 20 ML VIAL IV ONE (07:30)
[2023-09-24] MEDS ORDERED: GLYCOPYRROLATE 0.2 MG/ML 2 ML VIAL ONE (07:30)
[2023-09-24] MEDS ORDERED: fentaNYL (PF) 50 MCG/ML 2 ML AMP ONE (07:30)
[2023-09-24] MEDS ORDERED: ROPIVACAINE 5 MG/ML 30 ML VIAL ONE (07:30)
[2023-09-24] MEDS ORDERED: TRANEXAMIC 1,000 MG/100ML-NACL PREMIX BAG ONE (07:30)
[2023-09-24] MEDS ORDERED: ROCURONIUM 10 MG/ML (5 ML VIAL) IV ONE (07:30)
[2023-09-24] MEDS ORDERED: ROPIVACAINE 1,100 MG, SODIUM CHLORIDE 0.9% 500 ML 330 ML, EMPTY PAIN BALL 1 EACH MISCELLANE PRN ×2 (07:45)
--- NOTE | 2023-09-24 07:48 | P.ANPRN ---
Procedure Note - Anesthesia - Nerve Block Performed Left Adductor Canal Infusion Time Out Performed: Yes Date of Procedure: 09/24/23 Procedure Start Time: 07:08 Procedure Stop Time: 07:15 Location of Patient: PreOp Indication: Acute Post-Operative Pain, Requested by Surgeon Sedation Type: Sedate with meaningful contact maintained Preparation: Sterile Prep, Sterile Dressing Position: Supine Catheter: Indwelling Needle Types: Pajunk Needle Gauge: 18 Ultrasound used to visualize needle placement: Yes Ultrasound used to observe medication spread: Yes Injectate: 0.5% Ropivacaine (see comment for volume) (15 ml + 15 ml Lidocaine 1% with epi 1/200 k) Blood Aspirated: No Pain Paresthesia on Injection Noted: No Resistance on Injection: Normal Image Stored and Saved: Yes Events: Uneventful and Well Tolerated
--- NOTE | 2023-09-24 07:50 | P.ANPRN ---
Procedure Note - Anesthesia - Nerve Block Performed Left Cherryck Single Time Out Performed: Yes Date of Procedure: 09/24/23 Procedure Start Time: : Procedure Stop Time: Location of Patient: PreOp Indication: Acute Post-Operative Pain, Requested by Surgeon Sedation Type: Sedate with meaningful contact maintained Preparation: Sterile Prep Position: Right Lateral Needle Types: Pajunk Needle Gauge: 21 Ultrasound used to visualize needle placement: Yes Ultrasound used to observe medication spread: Yes Injectate: 0.5% Ropivacaine (see comment for volume) (15 ml + 15 ml Lidocaine with epi 1/200 k) Blood Aspirated: No Pain Paresthesia on Injection Noted: No Resistance on Injection: Normal Image Stored and Saved: Yes Events: Uneventful and Well Tolerated
[2023-09-24] MEDS ORDERED: ceFAZolin 1,000 MG in SODIUM CHLORIDE 0.9% 1,000 ML IRRIGATION ONE (08:00)
[2023-09-24] MEDS ORDERED: ACETAMINOPHEN TAB 325 MG TAB PO PRN (08:34)
[2023-09-24] MEDS ORDERED: NALOXONE 0.4 MG/ML 1 ML VIAL IV PRN (08:34)
[2023-09-24] MEDS ORDERED: ONDANSETRON 4 MG/2 ML VIAL IVP PRN (08:34)
[2023-09-24] MEDS ORDERED: HYDROcodone/APAP 5-325MG 1 EACH TAB PO PRN (08:34)
--- NOTE | 2023-09-24 09:37 | P.OP ---
Date of Procedure: 09/24/23 Preoperative Diagnosis: Left knee severe tricompartmental osteoarthrosis Postoperative Diagnosis: Same Procedure(s) Performed: Left total knee arthroplastycementedposterior stabilized Implants: Depuy Attune size 5 narrow cemented femoral component, size 4 cemented tibial component, 9 mm articular surface, 32 mm cemented patellar component. This is a posterior stabilized implant. Anesthesia: [facility] Surgeon: Kumar Bellamy Garment Sewer Hand #1: Jass Marvin Estimated Blood Loss (ml): 50 Pathology: none sent Condition: stable Disposition: PACU Indications for Procedure: The patient is a 70-year-old female who presents with progressive left knee pain secondary to osteoarthrosis despite conservative measures. A discussion of the risks and benefits of operative intervention versus continued conservative measures was made with the patient. She opted to proceed with surgery. Operative risks to include infection, neurovascular injury, development of blood clots, fracture, possible component loosening/failure and need for subsequent procedures was discussed. Informed consent was obtained. Operative Findings: As below Description of Procedure: The patient was brought to the operating room, and after induction of spinal anesthesia the left lower extremity was prepped and draped in a normal fashion. The tourniquet was inflated to 270 mm marker. A longitudinal incision extending 3 finger breaths above the superior pole of patella extending to the medial aspect the tibial tubercle was then made. The skin and subcutaneous tissues were divided sharply. Electrocautery was used for hemostasis. A medial parapatellar arthrotomy was performed. The medial soft tissues to include the superficial and deep portions of the medial collateral ligament were elevated subperiosteally. The patella was everted. A portion of the retropatellar fat pad was excised sharply. The anterior cruciate ligament was sacrificed. Blunt retractors were placed. A starting hole was made in the distal femur 1 cm anterior to the posterior cruciate ligament origin. An intramedullary femoral guide was then inserted planning on 5 valgus distal cut with 9 mm distal resect ion. The cutting block was pinned in place. The distal cut was then made. The posterior referencing sizing guide was utilized. I felt size 5 narrow was most appropriate. 3 of external rotation was built into the system and verified off the trans-epicondylar axis and the posterior condyles. The cutting block was pinned in place. The anterior, posterior, and chamfer cuts then made. Bone fra gments were removed. The intercondylar guide was placed and the notch cut was made with a sagittal saw. The bone block was removed in one fragment. The trial component was then placed. There is good anterior to posterior and medial to lateral fit. The distal peg holes were drilled. The trial component was removed. Attention was then paid towards preparing the proximal tibia. An extra medullary guide was utilized in line with the tibial shaft and second metatarsal distally. I planned on 2 mm resection from the medial compartment. The cutting block was pinned in place. The proximal tibial cut was then made. The bone was removed in one fragment. The remnants of the medial and lateral menisci were excised at the capsular junction with electrocautery. The tibia sized most appropriately at size 4. The trial femoral and tibial components were placed along with a 9 mm articular surface. I was able to obtain full flexion and extension with internal and external rotation. After several flexion and extension cycles, the tibial rotation was marked with electrocautery line with the medial one third of the tibial tubercle. Attention was then paid towards preparing the patella. A patella reamer was utilized taking stem to 14 mm of bone stock. A good flush cut was made. The patella sized most appropriately 32 mm. The peg holes were drilled. The trial components placed. I had good patellofemoral tracking with no hands technique. The trial components were then removed. The tibia was prepared in the appropriate rotation with appropriate drill and keel punch. The posterior osteophytes were removed with a curved osteotome. The flexion and extension gaps were checked and felt to be symmetric at 9 mm. A trial components were then removed. The bony surfaces were prepared with pulsatile lavage and dried. The tibial component was then cemented place was fully seated. Excess cement was removed. The femoral component cemented place and was fully seated. Excess cement was removed. The trial 9 mm articular surface was placed and the knee was put in full extension. The patella component was cemented place. After the cement had sufficiently hardened, the knee was again taken through a range of motion. Again I was able to obtain full flexion and extension with varus and valgus stress. The trial 9 mm articular surface was removed and the final one in serted. This was fully seated. Care was taken to avoid any soft tissue interposition. Pulsatile lavage was again utilized. The medial parapatellar arthrotomy was closed with #2 Ethibond suture. The tourniquet was deflated with approximately 60 minutes total tourniquet time. Final hemostasis was obtained with the cautery. There was minimal bleeding therefore a deep drain was not placed. The subcutaneous tissues were reapproximated with interrupted 2-0 Vicryl sutures. The skin was reapproximated with 3-0 subcuticular strata fix suture. Skin tape and adhesive was applied. A sterile dressing was applied. The patient was awoken from sedation and transferred to recovery room in good condition. Blood loss was estimated at 50 mL. No complications were incurred. Sponge and needle counts were correct at the end of the case. Jass MCKINNEY assisted during the major components of this case to include exposure, bone resection, implantation, and closure.
[2023-09-24 10:02] VITALS: RESP 16
--- NOTE | 2023-09-24 10:26 | XR ---
EXAMINATION TYPE: XR knee limited LT DATE OF EXAM: 09/24/2023 CLINICAL HISTORY: Postoperative evaluation Two views of the left knee are submitted. Identified are changes of total knee arthroplasty with fem oral and tibial components appearing well seated. Postsurgical soft tissue changes are noted. Align ment is anatomic.
[2023-09-24 12:05] LABS: Glucose,Whole Blood 214 mg/dL (70-110)
[2023-09-24] MEDS: HYDROmorphone 0.5 MG/0.5 ML SYRINGE IVP PRN ×2 (12:42→21:16)
[2023-09-24] MEDS ORDERED: ARTIFICIAL TEARS-HYPROMELLOSE DROPS 15 ML BTL BOTH EYES PRN (13:11)
[2023-09-24] MEDS ORDERED: DEXTROSE 50% SYRINGE 50 ML IVP PRN ×2 (13:11)
[2023-09-24] MEDS ORDERED: ALPRAZolam 0.25 MG TAB PO PRN (13:12)
[2023-09-24] MEDS ORDERED: prednisoLONE ACETATE 1% OPHTH DROPS 5 ML BTL BOTH EYES ONE (15:31)
[2023-09-24 16:50] LABS: Glucose,Whole Blood 182 mg/dL (70-110)
[2023-09-24] MEDS: metFORMIN 500 MG TAB PO SCH (17:00)
[2023-09-24] MEDS: HYDROcodone/APAP 7.5-325MG 1 EACH TAB PO PRN (17:00)
[2023-09-24] MEDS: INSULIN ASPART (NovoLOG) 100 UNIT/ML VIAL SQ SCH ×2 (17:01→21:17)
[2023-09-24 19:34] LABS: Glucose,Whole Blood 187 mg/dL (70-110)
--- NOTE | 2023-09-24 20:25 | CONS ---
CONSULTATION REASON FOR CONSULTATION: Advice regarding diabetes mellitus and atrial fibrillation, requested by Orthopedic Surgery. HISTORY OF PRESENT ILLNESS: This is a 78-year-old woman with a past medical history of diabetes and atrial fibrillation, who was admitted with left knee arthroplasty. Postoperatively, the patient is complaining of eye burning without any itching or redness. There is no history of any fever, rigor, or chills at this time. There is no history of any visual loss. PAST MEDICAL HISTORY: Diabetes, hypertension, and atrial ablation. Rest of the history and rest of the chart are also reviewed. HOME MEDICATIONS: Reviewed include Janumet. Doses and rest of the medications are reviewed. ALLERGIES: Niacin. FAMILY HISTORY: History of liver cancer. SOCIAL HISTORY: No history of smoking or alcohol. REVIEW OF SYSTEMS: Fourteen-point review is negative except as mentioned earlier. PHYSICAL EXAMINATION: VITAL SIGNS: Pulse 65, blood pressure 105/60, respirations 20. HEENT: Conjunctivae are normal. No icterus. No irritation. No ingestion. CARDIOVASCULAR: S1 and S2. RESPIRATORY: Clear to auscultation. ABDOMEN: Soft and nontender. NERVOUS SYSTEM: Nonfocal. LEGS: Status post knee arthroplasty. LABORATORY DATA: Glucose 214. ASSESSMENT: 1. Status post left total knee joint arthroplasty. 2. Eye irritation, bilateral. 3. Atrial fibrillation. 4. Diabetes mellitus, type 2. 5. Hyperlipidemia. 6. Hypertension. 7. Multiple medical issues. RECOMMENDATIONS: Recommend to continue current medications. Continue symptomatic treatment. Recommend copious irrigation and watch for any visual disturbances. Resume the home medications. DVT prophylaxis. Otherwise, repeat labs in the morning. We will follow the patient closely with you. Monitor blood sugars closely. MMODL / IJN: [id number] /
[2023-09-24] MEDS ORDERED: ATORVASTATIN 20 MG TAB PO SCH (21:00)
[2023-09-24] MEDS: hydroCHLOROthiazide 25 MG TAB PO SCH (21:17)
[2023-09-24] MEDS: PANTOPRAZOLE 40 MG TABLET PO SCH (21:17)
[2023-09-24] MEDS: GLIMEPIRIDE 4 MG TAB PO SCH (21:17)
[2023-09-25] MEDS: HYDROcodone/APAP 7.5-325MG 1 EACH TAB PO PRN ×2 (04:24→10:24)
[2023-09-25 05:15] LABS: Glucose,Whole Blood 218 mg/dL (70-110)
[2023-09-25] MEDS ORDERED: LEVOTHYROXINE 75 MCG TAB PO SCH (06:30)
[2023-09-25] MEDS: LACTATED RINGERS 1,000 ML IV SCH (06:48)
[2023-09-25] MEDS: metFORMIN 500 MG TAB PO SCH (06:57)
[2023-09-25] MEDS: INSULIN ASPART (NovoLOG) 100 UNIT/ML VIAL SQ SCH ×2 (06:57→12:16)
--- NOTE | 2023-09-25 07:11 | P.PN ---
Progress Note - Text Progress Note Date: 09/25/23 Postoperative day # 1 status post total knee arthroplasty, and adductor canal catheter placed for postoperative analgesia, currently at ropivacaine 0.2% 8 mL per hour and continuous infusion, visual analogue scale is 3/10, patient using oral pain medication for breakthrough pain. Assessment and plan= Acute postoperative pain, adductor canal catheter for pain control, pain is well controlled we'll continue the same management.
[2023-09-25] MEDS: PANTOPRAZOLE 40 MG TABLET PO SCH (08:51)
[2023-09-25] MEDS: hydroCHLOROthiazide 25 MG TAB PO SCH (08:51)
[2023-09-25] MEDS: GLIMEPIRIDE 4 MG TAB PO SCH (08:51)
[2023-09-25] MEDS ORDERED: FERROUS SULFATE 325 MG TAB PO SCH (09:00)
[2023-09-25] MEDS ORDERED: ESCITALOPRAM 10 MG TAB PO SCH (09:00)
[2023-09-25] MEDS ORDERED: atenoloL 50 MG TAB PO SCH (09:00)
[2023-09-25] MEDS ORDERED: ENOXAPARIN 40 MG/0.4 ML SYRINGE SQ SCH (09:00)
[2023-09-25] MEDS ORDERED: LINAGLIPTIN 5 MG TABLET PO SCH (09:00)
[2023-09-25] MEDS ORDERED: MULTIVITAMINS, THERA 1 EACH TAB PO SCH (09:00)
--- NOTE | 2023-09-25 09:02 | P.DS ---
Providers Date of admission: 09/24/2023 Expected date of discharge: 09/25/23 Attending physician: Kumar Bellamy Consults: 09/24/23 08:37 Consult Physician Routine Consulting Provider: Evaristo Guillory Reason/Comments: Medical Management Do you want consulting provider notified?: Yes Primary care physician: Evaristo Guillory Hospital Course: Date of admission: 09/24/2023 Date of discharge: 09/25/2023 Admission diagnosis: Left knee osteoarthritis Discharge diagnosis: Same Attending physician: Dr. Bellamy Surgical procedures: Left total knee arthroplasty Brief history: Patient is a 78-year-old female with a history of progressive primary left knee osteoarthritis. At this point patient has failed conservative treatment measures and has opted to proceed with a elective left total knee arthroplasty. Hospital course: Details of patient's surgery can be found in operative report. Patient tolerated the procedure well and was subsequently transported to orthopedic floor. Patient's orthopeidc and medical care was provided daily. Patient had daily laboratory tests performed for evaluation of overall blood counts. Patient had daily physical therapy to include strengthening range of motion as well as education with walker ambulation. Patient was treated with Xarelto for their postoperative DVT prophylaxis during their inpatient stay. Patient was noted to have a relatively uneventful postoperative course. Patient reported satisfactory pain control with oral pain medications by postoperative day 1. Patient showed satisfactory progress with physical therapy. Patient moved steadily through the program and had no difficulty meeting the goals by postoperative day 1. Given patient's otherwise satisfactory course and having met physical therapy goals, plan is to discharge patient home with health services postoperative day 1. Discharge condition/disposition: Patient will be discharged home with health services in stable condition. Discharge medications: Instructions are given on resumption of patient's normal daily medications per primary care recommendation, in addition patient will be prescribed [place]; senna; Eliquis 2.5 mg twice a day 2 weeks Discharge instructions: 1. Wound care and infection precautions, keep incision dry and covered while showering, no lotions, creams, moisturizers. No soaking, tubs, pools, hottubs. Do not scrub over the incision. 2. Weight-bear as tolerated with walker / cane until follow-up. 3. Ice and elevate when necessary. Do not exceed 20 minutes per hour with ice pack. 4. Utilize compression sleeve until seen at first follow up appointment. 5. Visiting nursing care. 6. Home physical therapy including home CPM. 7. Pain meds and anticoagulants per prescription. 8. Pain medication has potential to cause constipation. Increase oral fluid and fiber intake. Contact primary care provider if you have not had a bowel movement within 48 hours after discharge 9. No anti-inflammatory medication until discussed at first post operative visit, this including Motrin, Aleve, Mobic, Diclofenac. 10. Follow up in office at 2 weeks postop with Iam Durbin PA-C / Jass Marvin PA-C 11. Follow up with your primary care doctor 7-10 days after discharge. 12. Contact [facility] with any questions, . Assessment: Left knee osteoarthritis Procedures: Left total knee arthroplasty Patient Condition at Discharge: Good Plan - Discharge Summary Discharge Rx Participant: Yes New Discharge Prescriptions: New HYDROcodone/APAP 7.5-325MG [[place] 7.5] 1 - 2 each PO Q6HR PRN #36 tab PRN Reason: Pain Apixaban [Eliquis] 2.5 mg PO BID #60 tab Sennosides/Docusate Sodium [Senna Plus 8.6-50 mg Softgel] 1 each PO DAILY #20 capsule No Action Simvastatin [Zocor] 40 mg PO HS Omeprazole [PriLOSEC] 20 mg PO BID Glimepiride [Amaryl] 4 mg PO BID metFORMIN HCL [Glucophage] 500 mg PO BID ALPRAZolam [Xanax] 0.25 mg PO BID PRN PRN Reason: Anxiety Levothyroxine Sodium [Synthroid] 150 mcg PO QAM Escitalopram [Lexapro] 10 mg PO QAM Multivit with Calcium,Iron,Min [Women's Multivitamin] 1 tab PO DAILY sitaGLIPtin [Januvia] 100 mg PO DAILY atenoloL [Tenormin] 50 mg PO QAM hydroCHLOROthiazide 25 mg PO BID Aspirin EC [Ecotrin Low Dose] 81 mg PO DAILY Ferrous Sulfate [Iron] 325 mg PO DAILY Discharge Medication List ALPRAZolam [Xanax] 0.25 mg PO BID PRN 03/07/16 [History] Glimepiride [Amaryl] 4 mg PO BID 03/07/16 [History] Omeprazole [PriLOSEC] 20 mg PO BID 03/07/16 [History] Simvastatin [Zocor] 40 mg PO HS 03/07/16 [History] metFORMIN HCL [Glucophage] 500 mg PO BID 03/07/16 [History] Levothyroxine Sodium [Synthroid] 150 mcg PO QAM 08/22/18 [History] Escitalopram [Lexapro] 10 mg PO QAM 11/23/20 [History] Multivit with Calcium,Iron,Min [Women's Multivitamin] 1 tab PO DAILY 07/13/22 [History] sitaGLIPtin [Januvia] 100 mg PO DAILY 07/13/22 [History] atenoloL [Tenormin] 50 mg PO QAM 07/20/22 [History] Aspirin EC [Ecotrin Low Dose] 81 mg PO DAILY 08/20/23 [History] Ferrous Sulfate [Iron] 325 mg PO DAILY 09/17/23 [History] hydroCHLOROthiazide 25 mg PO BID 09/24/23 [History] Apixaban [Eliquis] 2.5 mg PO BID #60 tab 09/25/23 [Rx] HYDROcodone/APAP 7.5-325MG [[place] 7.5] 1 - 2 each PO Q6HR PRN #36 tab 09/25/23 [Rx] Sennosides/Docusate Sodium [Senna Plus 8.6-50 mg Softgel] 1 each PO DAILY #20 capsule 09/25/23 [Rx] Follow up Appointment(s)/Referral(s): Jass Marvin, BLAIRE [PHYSICIAN TURNER MACHINE OPERATOR] - [address] [facility],Equipment [NON-STAFF] - 1-2 Days (*Please call [facility] once home to arrange delivery of the Continous Passive Motion (CPM) machine. ) Patient Instructions/Handouts: Knee Replacement (DC), Knee Replacement (GEN) Activity/Diet/Wound Care/Special Instructions: Orthopedic Discharge Instructions: 1. Wound care and infection precautions, keep incision dry and covered while showering, no lotions, creams, moisturizers. No soaking, pools, hot tubs. Do not scrub over incision. 2. Weight-bear as tolerated with walker / cane until follow-up. 3. Ice and elevate when necessary. Do not exceed 20 minutes per hour with ice pack. 4. Utilize compression sleeve until seen at first follow up appointment. 5. Pain meds and anticoagulants per prescription. 6. Pain medication has potential to cause constipation. Increase oral fluid and fiber intake. Contact primary care provider if you have not had a bowel movement within 48 hours after discharge. 7. No anti-inflammatory medication until discussed at first post operative visit, this including Motrin, Aleve, Mobic, Diclofenac. 8. Follow up in office at 2 weeks postop with Iam Durbin PA-C / Jass Marvin PA-C 9. Follow up with your primary care doctor 7-10 days after discharge. 10. Contact [facility] with any questions, . Keep incision clean, dry, intact. While showering, cover fusion tape with Saran wrap. Keep fusion tape on until follow-up appointment in office at 2 weeks Discharge Disposition: HOME WITH HOME HEALTH SERVICES
[2023-09-25 09:07] VITALS: BP 129/77; PULSE 85; TEMP 98.1
--- NOTE | 2023-09-25 09:07 | P.PN ---
Subjective Progress Note Date: 09/25/23 Principal diagnosis: Left knee osteoarthritis Patient was seen at bedside this morning sitting up in chair with legs elevated. Patient says she just finished working with physical therapy and walk down the elaine and up-and-down status. Patient says she did do well with therapy. Patient says she has urinated several times since surgery yesterday. Patient says the pain in the medius control with medication. Patient says she is looking forward to going home later today. Patient says her daughter is coming to stay with her for the next couple weeks. Patient says she does have able rolling walker with a seat but would like a falling walker with no seat. Patient denies chest pain, fever, shortness breath, nausea, vomiting, change in vision, loss of bowel/bladder control. Objective - Vital Signs Vital signs: Vital Signs Temp 98.1 F 09/25/23 07:36 Pulse 85 09/25/23 07:36 Resp 16 09/25/23 07:36 BP 129/77 09/25/23 07:36 Pulse Ox 97 09/25/23 07:36 FiO2 Intake & Output 09/24/23 09/25/23 09/25/23 18:59 06:59 18:59 Intake Total 951 Output Total 50 Balance 901 Weight 86.2 kg Intake: IV 951 Output: Estimated Blood Loss 50 Other: Voiding Method Toilet # Voids 2 3 - Exam Left knee: Incision is clean, dry, and intact. The exofin fusion tape is in good condition. There is minimal soft tissue swelling and ecchymosis surrounding the medial and lateral aspects of the incision. Calf is soft, no tenderness with palpation. Plantar flexion, dorsiflexion, EHL, FHL are intact. Sensory exam to light touch throughout the extremity is intact, dorsal pedis pulses 2+. - Labs Labs: Abnormal Lab Results - Last 24 Hours (Table) 09/24/23 09/24/23 09/24/23 Range/Units 12:03 16:47 19:33 POC Glucose (mg/dL) 214 H 182 H 187 H (70-110) mg/dL 09/25/23 Range/Units 05:14 POC Glucose (mg/dL) 218 H (70-110) mg/dL Assessment and Plan Assessment: 1. Left knee osteoarthritis - Postoperative day 1 status post left total knee arthroplasty Plan: 1. Left knee osteoarthritis - left total knee arthroplasty performed yesterday, 09/24/2023. Patient stable at bedside this morning. Prescription for walker signed. Patient did do well with therapy. Discharge home today with health services. 2. Appreciate medical management 3. Pain management - [place] 4. DVT prophylaxis - Xarelto in hospital. Going home with Eliquis 2.5 mg twice a day 2 weeks 5. GI prophylaxis - senna 6. PT/OT - weightbearing as tolerated with walker 7. Encourage incentive spirometer use 8. Discharge planning - home today with health services Time with Patient: Less than 30
[2023-09-25 10:58] LABS: Basophils # (A) 0.02 X 10*3/uL (0.00-0.10); Basophils % (A) 0.2 %; Eosinophils # (A) 0.06 X 10*3/uL (0.04-0.35); Eosinophils % (A) 0.5 %; HCT 34.1 % (37.2-46.3); HGB 11.1 g/dL (12.0-15.0); Lymphocytes # (A) 1.03 X 10*3/uL (0.90-5.00); MCH 31.1 pg (27.0-32.0); MCHC 32.6 g/dL (32.0-37.0); MCV 95.5 FL (80.0-97.0); Mean Platelet Volume 9.6 FL (9.5-12.2); Monocytes % (A) 7.8 %; NRBC Per 100 WBC 0 X 10*3/uL (0.00-0.01); Platelet Count 278 X 10*3/uL (140-440); RBC 3.57 X 10*6/uL (4.10-5.20); RDW 13.3 % (11.5-14.5); WBC 11.47 X 10*3/uL (4.50-10.00)
[2023-09-25 11:25] LABS: Blood Urea Nitrogen 19.2 mg/dL (9.0-27.0); Calcium 8.3 mg/dL (8.7-10.3); Carbon Dioxide 26.7 mmol/L (21.6-31.8); Chloride 96 mmol/L (96-109); Glucose 214 mg/dL (70-110); Sodium 135 mmol/L (135-145)
[2023-09-25 11:31] LABS: Glucose,Whole Blood 229 mg/dL (70-110)
[2023-09-25] MEDS ORDERED: HYDROcodone/APAP 7.5-325MG 1 EACH TAB PO PRN (12:25)
--- NOTE | 2023-09-25 14:41 | PN ---
PROGRESS NOTE DATE OF SERVICE: 09/25/2023 SUBJECTIVE: This is a 78-year-old woman, who was admitted after left total knee arthroplasty. She is improving significantly. No chest pain. No palpitation. No fever. PHYSICAL EXAMINATION: VITAL SIGNS: Pulse is 85, blood pressure 129/77, respirations 16. CHEST: Clear to auscultation. CARDIOVASCULAR: S1 and S2. ABDOMEN: Soft. NERVOUS SYSTEM: Nonfocal. LEGS: Status post left knee arthroplasty. LABORATORY DATA: Glucose 229. ASSESSMENT: 1. Status post left total knee arthroplasty. 2. Eye irritation bilaterally, improved. 3. Atrial fibrillation. 4. Diabetes mellitus, type 2. 5. Hyperlipidemia. 6. Hypertension. 7. Multiple medical issues. RECOMMENDATIONS: Recommend to continue current medications. Continue symptomatic treatment. Otherwise, resume the home medication. Monitor blood sugars closely. DVT prophylaxis. Follow with primary physician closely. Rest of the recommendations per Orthopedic Surgery. MMODL / IJN: [id number] /
== END 2023-09-25 14:21 | disposition home health service (06) ==
LOC: OR 05:37 → 4SSUR 09:27 → OR 09-25 14:21
PROVIDERS: ATTEND Orthopaedic Surgery
DX: M17.12 Unilateral primary osteoarthritis, left knee (principal); I48.91 Unspecified atrial fibrillation; E11.9 Type 2 diabetes mellitus without complications; K21.9 Gastro-esophageal reflux disease without esophagitis; H91.90 Unspecified hearing loss, unspecified ear; E78.5 Hyperlipidemia, unspecified; I10 Essential (primary) hypertension; J18.9 Pneumonia, unspecified organism; E07.9 Disorder of thyroid, unspecified; K44.9 Diaphragmatic hernia without obstruction or gangrene; Z90.49 Acquired absence of other specified parts of digestive tract; Z98.890 Other specified postprocedural states; F41.9 Anxiety disorder, unspecified; Z80.0 Family history of malignant neoplasm of digestive organs; Z79.84 Long term (current) use of oral hypoglycemic drugs; Z79.890 Hormone replacement therapy; Z91.048 Other nonmedicinal substance allergy status; Z88.3 Allergy status to other anti-infective agents
CPT/HCPCS: 27447; 97161; 97166; 64999; 64448; 80048; 85025; 83036; 73560; C1713 ×2; C1776; C1751; J2250; J0690 ×2; J2405; J1650; J3010; J3490; J2795; J1170

== ENCOUNTER 2024-09-12 16:54 | Emergency (ER) | payer MEDICARE, OTHER ==
[2024-09-12 17:02] VITALS: RESP 18; TEMP 97.5
--- NOTE | 2024-09-12 17:25 | ED ---
General Adult HPI - General Chief complaint: Arrhythmia/Palpitations Stated complaint: dizziness Time Seen by Provider: 09/12/24 17:06 Source: patient, RN notes reviewed, old records reviewed Mode of arrival: wheelchair Limitations: no limitations - History of Present Illness Initial comments: 79-year-old female presenting for evaluation of palpitations, racing heart sensation. Patient has history of atrial fibrillation and states at times she does go into A-fib. Patient states just prior to arrival she had a racing heart sensation and felt lightheaded. There was mild associated chest discomfort, left upper chest. She does state that she has had symptoms of shoulder pain and arm numbness ongoing for the past several weeks. She has no cough or dyspnea. She states her symptoms are completely resolved at this time. - Related Data Home Medications Medication Instructions Recorded Confirmed ALPRAZolam [Xanax] 0.25 mg PO HS 03/07/16 09/12/24 Omeprazole [PriLOSEC] 20 mg PO BID 03/07/16 09/12/24 Simvastatin [Zocor] 40 mg PO HS 03/07/16 09/12/24 metFORMIN HCL [Glucophage] 500 mg PO BID 03/07/16 09/12/24 Levothyroxine Sodium [Synthroid] 150 mcg PO DAILY 08/22/18 09/12/24 Escitalopram [Lexapro] 10 mg PO DAILY 11/23/20 09/12/24 Multivit with Calcium,Iron,Min 1 tab PO DAILY 07/13/22 09/12/24 [Women's Multivitamin] sitaGLIPtin [Januvia] 100 mg PO DIRECTED 07/13/22 09/12/24 hydroCHLOROthiazide 25 mg PO DAILY 09/24/23 09/12/24 ALPRAZolam [Xanax] 0.25 mg PO DAILY PRN 09/12/24 09/12/24 atenoloL [Tenormin] 25 mg PO BID 09/12/24 09/12/24 Allergies Allergy/AdvReac Type Severity Reaction Status Date / Time niacin Allergy Rash/Hives Verified 09/12/24 18:38 adhesive tape AdvReac VERY RED Verified 09/12/24 18:38 SKIN AND TEARS SKIN-PAPER TAPE IS OK Review of Systems ROS Statement: Those systems with pertinent positive or pertinent negative responses have been documented in the HPI. ROS Other: All systems not noted in ROS Statement are negative. Past Medical History Past Medical History: Hearing Disorder / Deafness Additional Past Medical History / Comment(s): HIATAL HERNIA, decreased kidney function, bilateral hearing aid use. LOW HGB-LAST LEVEL WAS 8.4 ON 07/20/22-PT HAD 2 IRON INFUSTIONS-07/24 AND 07/27/22. History of Any Multi-Drug Resistant Organisms: None Reported Past Surgical History: Back Surgery Additional Past Surgical History / Comment(s): BACK SURGERY X4, CATARACTS REMOVED WITH IMPLANTS-BILATERAL, EGD, Colonoscopy. Past Anesthesia/Blood Transfusion Reactions: No Reported Reaction Past Psychological History: Anxiety Smoking Status: Never smoker Past Alcohol Use History: None Reported Past Drug Use History: None Reported - Past Family History Sister(s) Family Medical History: Cancer Additional Family Medical History / Comment(s): LIVER CANCER. Brother(s) Family Medical History: Cancer General Exam Limitations: no limitations General appearance: alert, in no apparent distress Head exam: Present: atraumatic, normocephalic Eye exam: Present: normal appearance, PERRL ENT exam: Present: normal exam Neck exam: Present: normal inspection. Absent: tenderness Respiratory exam: Present: normal lung sounds bilaterally. Absent: respiratory distress, wheezes Cardiovascular Exam: Present: regular rate, normal rhythm GI/Abdominal exam: Present: soft. Absent: distended, tenderness, guarding Extremities exam: Present: normal inspection, normal capillary refill. Absent: pedal edema, calf tenderness Neurological exam: Present: alert, oriented X3, CN II-XII intact, other (NIH of 0, no ataxia). Absent: motor sensory deficit Psychiatric exam: Present: normal affect, normal mood Skin exam: Present: warm, dry, intact Course Vital Signs 09/12/24 16:56 Temperature 97.5 F L Pulse Rate 71 Respiratory 18 Rate Blood Pressure 108/74 O2 Sat by Pulse 98 Oximetry Medical Decision Making - Medical Decision Making Was pt. sent in by a medical professional or institution (, PA, GLOVE BRUSHER, urgent ca re, hospital, or group home...) When possible be specific @ -No Did you speak to anyone other than the patient for history (EMS, parent, family, police, friend...)? What history was obtained from this source @ -No Did you review nursing and triage notes (agree or disagree)? Why? @ -I reviewed and agree with nursing and triage notes Were old charts reviewed (outside hosp., previous admission, EMS record, old EKG, old radiological studies, urgent care reports/EKG's, group home records)? Report findings @ -No old charts were reviewed Differential Palpitations Ventricular arrhythmias, atrial arrhythmias, myocardial infarction, anemia, thyrotoxicosis, electrolyte imbalance, hypokalemia, pulmonary embolism, pulmonary disease, drugs, alcohol, anxiety, stress.... This is not meant to be an all-inclusive list. EKG interpreted by me (3pts min.). @Sinus rhythm rate of 67, NH interval 158, QRS duration 92, QTc [address] segment elevation, nonspecific T wave abnormality. X-rays interpreted by me (1pt min.). @Chest x-ray negative for acute cardiopulmonary findings, hyperinflation CT interpreted by me (1pt min.). @ -None done U/S interpreted by me (1pt. min.). @ -None done What testing was considered but not performed or refused? (CT, X-rays, U/S, labs)? Why? @ -None What meds were considered but not given or refused? Why? @ -None Did you discuss the management of the patient with other professionals (professionals i.e. , PA, GLOVE BRUSHER, lab, RT, psych nurse, social media director, erector operator, teacher, supply requirements officer, mental health case manager)? Give summary @ -No Was smoking cessation discussed for >3mins.? @ -No Was critical care preformed (if so, how long)? @ -No Were there social determinants of health that impacted care today? How? (Homelessness, low income, unemployed, alcoholism, drug addiction, transportation, low edu. Level, literacy, decrease access to med. care, fdc, rehab)? @ -No Was there de-escalation of care discussed even if they declined (Discuss DNR or withdrawal of care, Hospice)? DNR status @ -No What co-morbidities impacted this encounter? (DM, HTN, Smoking, COPD, CAD, Cancer, CVA, ARF, Chemo, Hep., AIDS, mental health diagnosis, sleep apnea, morbid obesity)? @ -[Atrial fibrillation Was patient admitted / discharged? Hospital course, mention meds given and rou te, prescriptions, significant lab abnormalities, going to OR and other pertinent info. @ 79-year-old female presenting with palpitations, lightheadedness. Symptoms resolved prior to arrival. Patient does have history of atrial fibrillation and believes she may have been in a rapid A-fib. She is in sinus rhythm upon arrival. She has no complaints at the time my evaluation. I did perform a wo rkup including CBC, CMP, troponin. Patient has a hypokalemia and hypomagnesemia. These electrolytes are replaced. Her chest x-ray is clear. Patient states she does not want to stay in the hospital and states she feels totally fine. She states she will take a magnesium supplement and follow-up w ith her primary care for repeat laboratory testing. Undiagnosed new problem with uncertain prognosis? @ -No Drug Therapy requiring intensive monitoring for toxicity (Heparin, Nitro, Insulin, Cardizem)? @ -No Were any procedures done? @ -No Diagnosis/symptom? @Palpitation, hypomagnesemia Acute, or Chronic, or Acute on Chronic? @Acute moderate risk, arrhythmia, hypomagnesemia Uncomplicated (without systemic symptoms) or Complicated (systemic symptoms)? @ -Default Side effects of treatment? @ -No Exacerbation, Progression, or Severe Exacerbation? @ -No Poses a threat to life or bodily function? How? (Chest pain, [place], NE, pneumonia, PE, COPD, DKA, ARF, appy, cholecystitis, CVA, Diverticulitis, Homicidal, Suicidal, threat to staff... and all critical care pts) @ -Moderate risk, palpitation, arrhythmia, hypomagnesemia - Lab Data Result diagrams: 09/12/24 17:30 09/12/24 17:30 Lab Results 09/12/24 09/12/24 09/12/24 Range/Units 17:30 17:30 17:30 WBC 7.7 (3.8-10.6) k/uL RBC 4.06 (3.80-5.40) m/uL Hgb 12.1 (11.4-16.0) gm/dL Hct 37.8 (34.0-46.0) % MCV 93.0 (80.0-100.0) fL MCH 29.9 (25.0-35.0) pg MCHC 32.1 (31.0-37.0) g/dL RDW 13.1 (11.5-15.5) % Plt Count 328 (150-450) k/uL MPV 6.9 Neutrophils % 58 % Lymphocytes % 32 % Monocytes % 6 % Eosinophils % 2 % Basophils % 0 % Neutrophils # 4.4 (1.3-7.7) k/uL Lymphocytes # 2.4 (1.0-4.8) k/uL Monocytes # 0.5 (0-1.0) k/uL Eosinophils # 0.1 (0-0.7) k/uL Basophils # 0.0 (0-0.2) k/uL PT 10.5 (10.0-12.5) sec INR 0.9 (<1.2) APTT 23.1 (22.0-30.0) sec Sodium 134 L (137-145) mmol/L Potassium 3.3 L (3.5-5.1) mmol/L Chloride 100 (98-107) mmol/L Carbon Dioxide 28 (22-30) mmol/L Anion Gap 6 mmol/L BUN 28 H (7-17) mg/dL Creatinine 1.03 (0.52-1.04) mg/dL Est GFR (CKD-EPI)AfAm 60 (>60 ml/min/1.73 sqM) Est GFR (CKD-EPI)NonAf 52 (>60 ml/min/1.73 sqM) Glucose 129 H (74-99) mg/dL Calcium 8.6 (8.4-10.2) mg/dL Magnesium 1.0 L (1.6-2.3) mg/dL Total Bilirubin 0.4 (0.2-1.3) mg/dL AST 18 (14-36) U/L ALT 14 (4-34) U/L Alkaline Phosphatase 70 (38-126) U/L Troponin I (0.000-0.034) ng/mL Total Protein 6.9 (6.3-8.2) g/dL Albumin 4.3 (3.5-5.0) g/dL 09/12/24 Range/Units 17:30 WBC (3.8-10.6) k/uL RBC (3.80-5.40) m/uL Hgb (11.4-16.0) gm/dL Hct (34.0-46.0) % MCV (80.0-100.0) fL MCH (25.0-35.0) pg MCHC (31.0-37.0) g/dL RDW (11.5-15.5) % Plt Count (150-450) k/uL MPV Neutrophils % % Lymphocytes % % Monocytes % % Eosinophils % % Basophils % % Neutrophils # (1.3-7.7) k/uL Lymphocytes # (1.0-4.8) k/uL Monocytes # (0-1.0) k/uL Eosinophils # (0-0.7) k/uL Basophils # (0-0.2) k/uL PT (10.0-12.5) sec INR (<1.2) APTT (22.0-30.0) sec Sodium (137-145) mmol/L Potassium (3.5-5.1) mmol/L Chloride (98-107) mmol/L Carbon Dioxide (22-30) mmol/L Anion Gap mmol/L BUN (7-17) mg/dL Creatinine (0.52-1.04) mg/dL Est GFR (CKD-EPI)AfAm (>60 ml/min/1.73 sqM) Est GFR (CKD-EPI)NonAf (>60 ml/min/1.73 sqM) Glucose (74-99) mg/dL Calcium (8.4-10.2) mg/dL Magnesium (1.6-2.3) mg/dL Total Bilirubin (0.2-1.3) mg/dL AST (14-36) U/L ALT (4-34) U/L Alkaline Phosphatase (38-126) U/L Troponin I <0.012 (0.000-0.034) ng/mL Total Protein (6.3-8.2) g/dL Albumin (3.5-5.0) g/dL Disposition Clinical Impression: Palpitations, Hypomagnesemia Disposition: HOME SELF-CARE Condition: Fair Instructions (If sedation given, give patient instructions): Heart Palpitations (ED), Hypomagnesemia (ED) Additional Instructions: Please take ivmn-oci-jrxtphd magnesium supplement daily. Please have your blood test repeated with your primary care provider including potassium and magnesium. Is patient prescribed a controlled substance at d/c from ED?: No Referrals: Armando Diaz MD [Primary Care Provider] - 1-2 days Time of Disposition: 19:09
[2024-09-12 17:39] LABS: Basophils % (A) 0 %; Eosinophils # (A) 0.1 k/uL (0-0.7); Eosinophils % (A) 2 %; HCT 37.8 % (34.0-46.0); HGB 12.1 gm/dL (11.4-16.0); Lymphocytes # (A) 2.4 k/uL (1.0-4.8); Lymphocytes % (A) 32 %; MCH 29.9 pg (25.0-35.0); MCHC 32.1 g/dL (31.0-37.0); Mean Platelet Volume 6.9; Monocytes # (A) 0.5 k/uL (0-1.0); Monocytes % (A) 6 %; Neutrophils # (A) 4.4 k/uL (1.3-7.7); Neutrophils % (A) 58 %; Platelet Count 328 k/uL (150-450); RBC 4.06 m/uL (3.80-5.40); RDW 13.1 % (11.5-15.5); WBC 7.7 k/uL (3.8-10.6)
[2024-09-12 17:47] LABS: INR 0.9 (<1.2); Partial Thromboplastin Time 23.1 sec (22.0-30.0); Prothrombin Time 10.5 sec (10.0-12.5)
--- NOTE | 2024-09-12 17:53 | XR ---
EXAMINATION TYPE: XR chest 2V DATE OF EXAM: 09/12/2024 5:44 PM COMPARISON: Chest radiographs from 03/19/2021 CLINICAL INDICATION: Female, 79 years old with history of dysrhythmia; [facility] TECHNIQUE: XR chest 2V Frontal and lateral views of the chest. FINDINGS: Lungs/Pleura: There is flattening of the diaphragm with increased lucency of the lungs. No evidence o f pneumothorax, pleural effusion or focal consolidation. Pulmonary vascularity: Unremarkable. Heart/mediastinum: Cardiomediastinal silhouette is unremarkable. Musculoskeletal: No acute osseous pathology. There is lower spine fixation hardware is present. IMPRESSION: 1. No acute cardiopulmonary disease process. 2. COPD changes. [facility], , 09/12/2024 5:50 PM
[2024-09-12 17:54] LABS: ALT 14 U/L (4-34); AST 18 U/L (14-36); African American GFR (CKD) 60 (>60 ml/min/1.73 sqM); Albumin 4.3 g/dL (3.5-5.0); Alkaline Phosphatase 70 U/L (38-126); Anion Gap 6 mmol/L; Blood Urea Nitrogen 28 mg/dL (7-17); Calcium 8.6 mg/dL (8.4-10.2); Carbon Dioxide 28 mmol/L (22-30); Chloride 100 mmol/L (98-107); Glucose 129 mg/dL (74-99); Non-African American GFR(CKD) 52 (>60 ml/min/1.73 sqM); Potassium 3.3 mmol/L (3.5-5.1); Sodium 134 mmol/L (137-145); Total Bilirubin 0.4 mg/dL (0.2-1.3); Total Protein 6.9 g/dL (6.3-8.2)
[2024-09-12] MEDS: MAGNESIUM SULFATE-D5W PMX 1 GM in DEXTROSE/WATER 1 100ML.BAG IVPB SCH (18:13)
[2024-09-12] MEDS: POTASSIUM CHLORIDE ER 20 MEQ TAB.ER PO STA (18:13)
[2024-09-12 21:13] VITALS: BP 110/72; PULSE 69
== END 2024-09-12 21:19 | disposition home or self-care (01) ==
LOC: EC 16:54
DX: R00.2 Palpitations (principal); E83.42 Hypomagnesemia; I48.91 Unspecified atrial fibrillation; Z88.8 Allergy status to other drugs, medicaments and biological substances
CPT/HCPCS: 36415; 93005; 80053; 83735; 84484; 85025; 85610; 85730; 71046; 99285; 96365; 96366; J3475

== ENCOUNTER 2025-02-20 09:09 | Emergency (ER) | payer MEDICARE ==
[2025-02-20 09:24] VITALS: RESP 20
--- NOTE | 2025-02-20 09:56 | ED ---
General Adult HPI - General Chief complaint: Back Pain/Injury Stated complaint: Muscular discomfort Time Seen by Provider: 02/20/25 09:27 Source: patient, family, RN notes reviewed Mode of arrival: wheelchair Limitations: no limitations - History of Present Illness Initial comments: This is a 79-year-old female who presents to the emergency department for muscle cramping. Patient states that about 2 weeks ago she started to develop pain and tightness in her neck, making it difficult to turn her head. She went to the emergency department at [facility]. States that they advised that her muscles were very tight. They sent in a prescription for [place] and muscle relaxers, however states that she is now out of them and only taking ibuprofen, which is not effective. She initially only had cramping in the neck and mid back, however she now has cramping in her right arm along with swelling and cramping in the left leg. - Related Data Home Medications Medication Instructions Recorded Confirmed ALPRAZolam [Xanax] 0.25 mg PO HS 03/07/16 09/12/24 Omeprazole [PriLOSEC] 20 mg PO BID 03/07/16 09/12/24 Simvastatin [Zocor] 40 mg PO HS 03/07/16 09/12/24 metFORMIN HCL [Glucophage] 500 mg PO BID 03/07/16 09/12/24 Levothyroxine Sodium [Synthroid] 150 mcg PO DAILY 08/22/18 09/12/24 Escitalopram [Lexapro] 10 mg PO DAILY 11/23/20 09/12/24 Multivit with Calcium,Iron,Min 1 tab PO DAILY 07/13/22 09/12/24 [Women's Multivitamin] sitaGLIPtin [Januvia] 100 mg PO DIRECTED 07/13/22 09/12/24 hydroCHLOROthiazide 25 mg PO DAILY 09/24/23 09/12/24 ALPRAZolam [Xanax] 0.25 mg PO DAILY PRN 09/12/24 09/12/24 atenoloL [Tenormin] 25 mg PO BID 09/12/24 09/12/24 Previous Rx's Medication Instructions Recorded Ketorolac [Toradol] 10 mg PO Q6HR PRN #15 tab 02/20/25 methocarbamoL [Robaxin-750] 1,500 mg PO TID PRN #30 tab 02/20/25 Allergies Allergy/AdvReac Type Severity Reaction Status Date / Time niacin Allergy Rash/Hives Verified 09/12/24 18:38 adhesive tape AdvReac VERY RED Verified 09/12/24 18:38 SKIN AND TEARS SKIN-PAPER TAPE IS OK Review of Systems ROS Statement: Those systems with pertinent positive or pertinent negative responses have been documented in the HPI. ROS Other: All systems not noted in ROS Statement are negative. Past Medical History Past Medical History: Atrial Fibrillation, Diabetes Mellitus, Hearing Disorder / Deafness, Hypertension, Osteoarthritis (OA), Renal Disease Additional Past Medical History / Comment(s): HIATAL HERNIA, decreased kidney function, bilateral hearing aid use. LOW HGB-LAST LEVEL WAS 8.4 ON 07/20/22-PT [place] D 2 IRON INFUSTIONS-07/24 AND 07/27/22. Anemia. Hypomag History of Any Multi-Drug Resistant Organisms: None Reported Past Surgical History: Back Surgery Additional Past Surgical History / Comment(s): BACK SURGERY X4, CATARACTS REMOVED WITH IMPLANTS-BILATERAL, EGD, Colonoscopy. Past Anesthesia/Blood Transfusion Reactions: No Reported Reaction Past Psychological History: Anxiety Smoking Status: Never smoker Past Alcohol Use History: None Reported Past Drug Use History: None Reported - Past Family History Sister(s) Family Medical History: Cancer Additional Family Medical History / Comment(s): LIVER CANCER. Brother(s) Family Medical History: Cancer General Exam Limitations: no limitations General appearance: alert, in no apparent distress Head exam: Present: atraumatic, normocephalic, normal inspection Neck exam: Present: other (Tightness over the posterior cervical spine. Range of motion limited by pain.). Absent: meningismus Respiratory exam: Present: normal lung sounds bilaterally. Absent: respiratory distress, wheezes, rales, rhonchi, stridor Cardiovascular Exam: Present: regular rate, normal rhythm Extremities exam: Present: other (Generalized swelling to the right upper extr emity. No erythema. Limited range of motion secondary to pain. 2+ radial pulses) Neurological exam: Present: alert, oriented X3, CN II-XII intact Psychiatric exam: Present: normal affect, normal mood Course Vital Signs 02/20/25 02/20/25 02/20/25 09:20 13:57 14:54 Temperature 97.7 F 98.1 F 98.1 F Pulse Rate 82 73 76 Respiratory 20 20 20 Rate Blood Pressure 130/76 132/76 146/80 O2 Sat by Pulse 98 97 99 Oximetry Medical Decision Making - Medical Decision Making This is a 79-year-old female who presents to the emergency department for muscle cramps. Was pt. sent in by a medical professional or institution? @ -No Did you speak to anyone other than the patient for history? @ -No Did you review nursing and triage notes? @ -Yes, and I agree, it is accurate with regards to the patient's symptoms. Were old charts reviewed? @ -No Differential Diagnosis? @ -Differential Musculoskeletal Muscular strain, contusion, ligament sprain, fracture, arthritis, septic arthritis, bursitis, cellulitis, muscle spasm, nerve compression, DVT, arterial occlusion, herpes zoster, electrolyte abnormality, tumor.... This is not meant to be in all inclusive list EKG interpreted by me (3pts min.)? @ -Not obtained X-rays interpreted by me (1pt min.)? @ -X-ray of the left foot obtained. My interpretation identifies no acute fractures. CT interpreted by me (1pt min.)? @ -Not obtained U/S interpreted by me (1pt. min.)? @ -Duplex US of the right upper extremity obtained. My interpretation identifi es no evidence of a DVT. What testing was considered but not performed? (CT, X-rays, U/S, labs)? Why? @ -None What meds were considered but not given? Why? @ -None Did you discuss the management of the patient with other professionals? @ -No Did you reconcile home meds? @ -No Was smoking cessation discussed for >3mins.? @ -No Was critical care preformed (if so, how long)? @ -No Were there social determinants of health that impacted care today? How? (Homelessness, low income, unemployed, alcoholism, drug addiction, transportat ion, low edu. Level, literacy, decrease access to med. care, long-term, rehab)? @ -No Was there de-escalation of care discussed even if they declined? (Discuss DNR or withdrawal of care, Hospice)? @ -No What co-morbidities impacted this encounter? (DM, HTN, Smoking, COPD, CAD, Cancer, CVA, Hep., AIDS, mental health diagnosis, sleep apnea, morbid obesity)? @ -DM, renal disease Was patient admitted / discharged? @ -Discharged. Lab work demonstrates leukocytosis with a white blood cell count of 14.8. Magnesium low at 1.2. Duplex ultrasound of the right upper extremity reveals no evidence of a DVT. X-ray of the left foot demonstrates soft tissue swelling without other acute process. Patient treated with IV fluids and 4 g of magnesium sulfate. She was also given Toradol and Norflex with improvement in s ymptoms. States that she does take magnesium supplements at home and I advised she continue to do so. Toradol and Robaxin prescribed for further symptomatic management. Discussed that a component of this could be related to the low magnesium. Advised follow-up with her PCP for reevaluation. Patient discharged home in stable condition. Case discussed with ED attending Dr. Lobato. Return precautions reviewed in depth, the patient is instructed to return to the emergency department with any new, worsening, or concerning symptoms. Patient verbalized understanding. Undiagnosed new problem with uncertain prognosis? @ -None Drug Therapy requiring intensive monitoring for toxicity (Heparin, Nitro, Insulin, Cardizem)? @ -None Were any procedures done? @ -None Diagnosis/symptom? @ -Muscle cramps, hypomagnesemia Acute, or Chronic, or Acute on Chronic? @ -Acute Uncomplicated (without systemic symptoms) or Complicated (systemic symptoms)? @ -Uncomplicated Side effects of treatment? @ -None Exacerbation, Progression, or Severe Exacerbation] @ -Not applicable Poses a threat to life or bodily function? @ -No - Lab Data Result diagrams: 02/20/25 09:55 02/20/25 10:11 Lab Results 02/20/25 02/20/25 Range/Units 09:55 10:11 WBC 14.80 H (4.50-10.00) 10*3/uL RBC 3.98 L (4.10-5.20) 10*6/uL Hgb 12.4 (12.0-15.0) g/dL Hct 35.7 L (37.2-46.3) % MCV 89.7 (80.0-97.0) fL MCH 31.2 (27.0-32.0) pg MCHC 34.7 (32.0-37.0) g/dL Plt Count 530 H (140-440) 10*3/uL MPV 8.8 L (9.5-12.2) fL Immature Gran % (Auto) 0.7 % Neutrophils % 80.4 % Lymphocytes % 10.2 % Monocytes % 8.0 % Eosinophils % 0.5 % Basophils % 0.2 % Immature Gran # 0.10 H (0.00-0.04) 10*3/uL Neutrophils # 11.90 H (1.80-7.70) 10*3/uL Lymphocytes # 1.51 (0.90-5.00) 10*3/uL Monocytes # 1.19 H (0.20-1.00) 10*3/uL Eosinophils # 0.07 (0.04-0.35) 10*3/uL Basophils # 0.03 (0.00-0.10) 10*3/uL Sodium 131 L (137-145) mmol/L Potassium 3.9 (3.5-5.1) mmol/L Chloride 91 L (98-107) mmol/L Carbon Dioxide 26 (22-30) mmol/L Anion Gap 14 mmol/L BUN 25 H (7-17) mg/dL Creatinine 1.01 (0.52-1.04) mg/dL Est GFR (CKD-EPI)AfAm 61 (>60 ml/min/1.73 sqM) Est GFR (CKD-EPI)NonAf 53 (>60 ml/min/1.73 sqM) Glucose 345 H (74-99) mg/dL Calcium 9.2 (8.4-10.2) mg/dL Phosphorus 3.8 (2.5-4.5) mg/dL Magnesium 1.2 L (1.6-2.3) mg/dL Total Bilirubin 0.8 (0.2-1.3) mg/dL AST 16 (14-36) U/L ALT 13 (4-34) U/L Alkaline Phosphatase 122 (38-126) U/L Creatine Kinase 28 L (30-135) U/L Total Protein 7.3 (6.3-8.2) g/dL Albumin 4.1 (3.5-5.0) g/dL - Radiology Data Radiology results: report reviewed, image reviewed Disposition Clinical Impression: Hypomagnesemia, Muscle cramps Disposition: HOME SELF-CARE Instructions (If sedation given, give patient instructions): Hypomagnesemia (ED), Muscle Cramp (ED) Additional Instructions: Return to the emergency department with any new, worsening, or concerning symptoms. Take the Toradol with Tylenol as needed for pain relief. If you choose to take the Toradol, do not take any other anti-inflammatories such as ibuprofen, take one or the other. Take the Robaxin as 1 to 2 tablets up to 3-4 times daily. Continue to take magnesium supplements and drink plenty of fluids. Follow up with your primary care provider in 1-2 days. Prescriptions: methocarbamoL [Robaxin-750] 1,500 mg PO TID PRN #30 tab PRN Reason: Pain Ketorolac [Toradol] 10 mg PO Q6HR PRN #15 tab PRN Reason: Pain Is patient prescribed a controlled substance at d/c from ED?: No Referrals: Armando Diaz MD [Primary Care Provider] - 1-2 days
[2025-02-20] MEDS: SODIUM CHLORIDE 0.9% 1,000 ML IV ONE (10:00)
[2025-02-20 10:01] LABS: Basophils # (A) 0.03 10*3/uL (0.00-0.10); Basophils % (A) 0.2 %; Eosinophils # (A) 0.07 10*3/uL (0.04-0.35); Eosinophils % (A) 0.5 %; HCT 35.7 % (37.2-46.3); HGB 12.4 g/dL (12.0-15.0); Lymphocytes # (A) 1.51 10*3/uL (0.90-5.00); Lymphocytes % (A) 10.2 %; MCH 31.2 pg (27.0-32.0); MCHC 34.7 g/dL (32.0-37.0); MCV 89.7 fL (80.0-97.0); Mean Platelet Volume 8.8 fL (9.5-12.2); Monocytes # (A) 1.19 10*3/uL (0.20-1.00); Neutrophils % (A) 80.4 %; Platelet Count 530 10*3/uL (140-440); RBC 3.98 10*6/uL (4.10-5.20); RDW 13.2 % (11.5-14.5)
[2025-02-20] MEDS: KETOROLAC 15 MG/ML 1 ML VIAL IVP STA (10:11)
[2025-02-20] MEDS: ORPHENADRINE 30 MG/ML 2 ML VIAL IVP STA (10:12)
[2025-02-20 10:34] LABS: ALT 13 U/L (4-34); AST 16 U/L (14-36); African American GFR (CKD) 61 (>60 ml/min/1.73 sqM); Albumin 4.1 g/dL (3.5-5.0); Alkaline Phosphatase 122 U/L (38-126); Anion Gap 14 mmol/L; Blood Urea Nitrogen 25 mg/dL (7-17); Calcium 9.2 mg/dL (8.4-10.2); Carbon Dioxide 26 mmol/L (22-30); Chloride 91 mmol/L (98-107); Creatine Kinase 28 U/L (30-135); Glucose 345 mg/dL (74-99); Magnesium 1.2 mg/dL (1.6-2.3); Non-African American GFR(CKD) 53 (>60 ml/min/1.73 sqM); Phosphorus 3.8 mg/dL (2.5-4.5); Potassium 3.9 mmol/L (3.5-5.1); Sodium 131 mmol/L (137-145); Total Bilirubin 0.8 mg/dL (0.2-1.3); Total Protein 7.3 g/dL (6.3-8.2)
[2025-02-20] MEDS: MAGNESIUM SULFATE-D5W PMX 1 GM in DEXTROSE/WATER 1 100ML.BAG IVPB SCH (11:10)
--- NOTE | 2025-02-20 11:17 | US ---
EXAMINATION TYPE: US venous doppler duplex UE RT DATE OF EXAM: 02/20/2025 COMPARISON: NONE CLINICAL INDICATION: Female, 79 years old with history of Arm pain and swelling; No injury, redness o r swelling. On aspirin. Arm sore spots. TECHNIQUE: Grayscale, color Doppler and spectral Doppler imaging of the upper extremity. SIDE PERFORMED: Right. VESSELS IMAGED: IJV Subclavian Vein Axilla Vein Brachial Vein(s) Radial Paired Veins Ulnar Paired Veins Cephalic Vein* Basilic Vein* (*superficial vessels) FINDINGS: Right Arm: Negative for DVT Grayscale, color doppler, spectral doppler imaging performed of the deep veins of the right upper ext remity. IMPRESSION: No evidence for DVT of the right upper extremity. [facility], , 02/20/2025 11:15 AM
--- NOTE | 2025-02-20 12:52 | XR ---
EXAMINATION TYPE: XR foot complete LT DATE OF EXAM: 02/20/2025 12:44 PM INDICATION: Patient age:Female; 79 years old; Reason for study: Pain; PHH. pain COMPARISON: None TECHNIQUE: The left foot was examined in the AP, oblique, and lateral projections. FINDINGS: No evidence of any acute osseous pathology. Dorsal forefoot soft tissue swelling. Midfoot dorsal ost eophytosis with joint space narrowing. No osseous erosions. Mild joint space narrowing with osteophyt osis of the first MTP joint. Lateral deviation with flexion of the third digit at the MTP joint. Mild hallux valgus deformity first digit. Plantar calcaneal enthesophyte. IMPRESSION: 1. No evidence of acute fracture. 2. Dorsal forefoot soft tissue swelling. [facility], , 02/20/2025 12:50 PM
[2025-02-20 13:58] VITALS: TEMP 98.1
[2025-02-20] MEDS: ACET/COD 300 MG/30 MG STARTER PACK 6 TAB BTL PO STA (14:47)
[2025-02-20 14:55] VITALS: BP 146/80; PULSE 76
== END 2025-02-20 14:55 | disposition home or self-care (01) ==
LOC: EC 09:09
DX: M79.601 Pain in right arm (principal); E83.42 Hypomagnesemia; D72.829 Elevated white blood cell count, unspecified; E11.9 Type 2 diabetes mellitus without complications; Z79.84 Long term (current) use of oral hypoglycemic drugs; Z87.448 Personal history of other diseases of urinary system; Z91.09 Other allergy status, other than to drugs and biological substances
CPT/HCPCS: 96366 ×3; 96375 ×3; 96361 ×3; 96365 ×2; 99284 ×2; 36415; 80053; 82550; 83735; 84100; 85025; 73630; 93971; J2360; J3475; J1885